=== PATIENT | male | born 1940 | race Caucasian/White ===

== ENCOUNTER 2022-07-31 12:22 | Outpatient (CLI) | payer MEDICARE, SELFPAY ==
--- NOTE | 2022-07-31 12:46 | ECG_ITS ---
Measurements Intervals [place] Rate: 67 P: 167 DC: 284 QRS: 74 QRSD: 100 T: 11 QT: 414 QTc: 439 Interpretive Statements SINUS RHYTHM WITH FIRST DEGREE AV BLOCK FREQUENT ATRIAL PREMATURE COMPLEXES BORDERLINE R WAVE PROGRESSION, ANTERIOR LEADS NONSPECIFIC ST & T-WAVE ABNORMALITY- INFERIOR LEADS BASELINE ARTIFACT- I, II, III, AVR, AVL, AVF ABNORMAL ECG NO PREVIOUS ECG AVAILABLE FOR COMPARISON Electronically Signed On 07-31-2022 13:35:53 CDT by Jaguar Colindres D.O.
[2022-07-31 13:42] LABS: Basophils Absolute Auto 0.1 K/mm3 (0.0-0.1); Basophils Percent Auto 0.9 % (0.2-1.2); Eosinophils Absolute Auto 0.1 K/mm3 (0-0.3); Eosinophils Percent Auto 1.8 % (0-4.4); Hemoglobin 13.1 g/dL (14.0-18.0); Immature Granulocyte Absolute 0.02 K/mm3 (0.00-0.031); Immature Granulocyte Percent A 0.3 % (0-0.5); Lymphocytes Absolute Auto 1.13 K/mm3 (0.9-3.2); Lymphocytes Percent Auto 14.5 % (18.3-44.2); Mean Corpuscular HGB Conc 31.2 g/dl (32-36); Mean Corpuscular Hemoglobin 29.2 pg (26-34); Mean Corpuscular Volume 93.8 fl (80-100); Mean Platelet Volume 10.2 fl (7.4-10.4); Monocytes Absolute Auto 0.6 K/mm3 (0.1-0.6); Monocytes Percent Auto 7.3 % (2.6-8.5); Neutrophils Absolute Auto 5.9 K/mm3 (1.3-6.7); Neutrophils Percent Auto 75.2 % (45.5-73.1); Platelet Count Result 149 k/mm3 (150-375); Red Blood Count 4.48 M/mm3 (4.6-6.20); White Blood Count 7.8 K/mm3 (4.5-10.0)
[2022-07-31 13:52] LABS: INR 1.1; Partial Thromboplastin Time 25.7 SECONDS (22.3-36.8); Prothrombin Time 14.8 Seconds (11.1-14.7)
[2022-07-31 13:53] LABS: Anion Gap -1 mmol/L (8-16); Blood Urea Nitrogen 30 mg/dL (9-20); Calcium 8.8 mg/dL (8.4-10.2); Carbon Dioxide 36 mmol/L (22-30); Chloride 101 mmol/L (98-107); Estimated Glomerular Filt Rate > 60; Glucose 100 mg/dL (65-110); Potassium 4.8 mmol/L (3.4-5.0); Sodium 136 mmol/L (137-145)
== END 2022-07-31 12:23 | disposition home or self-care (01) ==
LOC: ANHSURGERY 12:29
PROVIDERS: Visit Provider Urology
DX: C67.9 Malignant neoplasm of bladder, unspecified (principal); I48.91 Unspecified atrial fibrillation; Z01.818 Encounter for other preprocedural examination; I45.10 Unspecified right bundle-branch block
CPT/HCPCS: 36415; 80048; 85025; 85610; 85730; 87086; 87147; 87181; 87186; 93005

== ENCOUNTER 2022-08-05 19:29 | Observation (INO) | payer MEDICARE, SELFPAY ==
--- NOTE | 2022-07-20 14:39 | PC.NURSE ---
Report to the Outpatient Waiting Room, entrance under the green pavilion located off [facility], at time 0700 on date ___08/04/22____. Planned Procedure Time: ___0900 . Time changes happen often and if your time is changed the preop area will call you the afternoon before. - You and your visitor will be asked to self-screen and do not enter if you have any COVID symptoms. - A mask is optional within the hospital at this time. Patients may have clear liquids (water, carbonated beverages, clear teas, apple juice) until 3 hours prior to surgery with a maximum of 20 ounces. - No food from midnight until time of surgery - Infants may have breast milk until 4 hours before surgery, infant formula 6 hours prior to surgery. - Children will be allowed to drink immediately following surgery. If applicable, please bring a bottle or sippy cup to assist with drinking. Juice, water, soda, and popsicles are readily available. For infants on formula, please bring formula the day of surgery. Pacifiers are allowed. Take the following medications with a SIP of water the morning of surgery: NONE DO NOT STOP ANY OF YOUR OTHER PRESCRIPTION MEDICATIONS PRIOR TO SURGERY ?EXCEPT THE FOLLOWING Medications to discontinue per physician [place] TO CALL DR GARRISON OFFICE___ALL VITAMINS 3 DAYS PRE OP .LAST DOSE 07/31/22___ Please no make-up, nail arabic, hairspray, perfume, deodorant, or body powder the day of surgery. No jewelry (including any body piercings) or valuables the day of surgery, leave them at home. Please take a shower or bath the night before, or the morning of, surgery with an antibacterial soap. Wear comfortable, loose fitting clothing. Children are encouraged to wear pajamas. - Jewelry must be removed prior to entering the operating room. Rings and piercings that are not removed may be cut off. - The hospital will not accept responsibility for valuables. - Please leave all valuables, including medications, at home the day of surgery. If you are going home after surgery, a licensed transit mixer driver must drive you home. - NO public transportation without another adult if you receive anesthesia. - We recommend that an adult stay with you for 24 hours following discharge. - We also recommend that you do not drive, make important decision, drink alcoholic beverages, or take any drugs that were not prescribed by your health care provider for at least 24 hours after your discharge time. For Pediatric surgeries, we recommend two adults accompany the child home. Follow any additional instructions given to you from your surgeon. If you or anyone in your household have experienced Covid symptoms in the past week, please notify your surgeon or the nurse liaison at the phone number below for possible testing. Telephone instructions given to ___PT'S CONOR and asked if any additional questions and then verbalized understanding. Patient advised to call surgeon office or pre surgery nurse liaison [phone] if any additional questions.
[2022-07-20 14:54] VITALS: BMI 20.9
[2022-08-04] VITALS (14 sets, daily range): BP systolic 108–155; BP diastolic 33–49; PULSE 60–88; RESP 10–22; TEMP 36.1–36.7; O2SAT 95–100
[2022-08-04] MEDS: LACTATED RINGERS 1,000 ML 30 ML IV CONT (07:00)
--- NOTE | 2022-08-04 07:03 | WPDHPUPDATE1 ---
History and Physical Update Update Date/Time: 08/04/22 07:03 History and Physical has been reviewed, including an updated exam of the patient. There are NO changes in the patient's condition. Risks, benefits, and alternatives have been discussed and questions answered. Patient agrees to proceed with procedure. Proceed with Transurethral resection of prostate
--- NOTE | 2022-08-04 07:47 | WPDANESEPPF ---
Anes - Initial Pre Proc Eval Procedure: Operation Date: 08/04/22 08:30 Proposed Procedures p Trans Urethral Resection Prostate - Gulshan Goznalez MD Date/Time: 08/04/22 07:47 Surgeon: Gulshan Gonzalez MD Pre Op Diagnosis: urinary retention, bph, bladder cancer Patient Data Age: 82 Gender: M Height: 1.8 m Weight: 63.7 kg Last Vital Signs Temp 36.1 C L 08/04/22 07:27 Pulse 68 08/04/22 07:27 Resp 18 08/04/22 07:27 BP 140/36 L 08/04/22 07:27 Pulse Ox 99 08/04/22 07:27 O2 Del Method Room Air 08/04/22 07:27 Allergies Allergy/AdvReac Type Severity Reaction Status Date / Time No Known Allergies Allergy Verified 08/04/22 07:25 Home Medications Medication Instructions Recorded Confirmed Type apixaban 5 mg tablet (Eliquis) 5 mg PO BID 07/20/22 07/20/22 History ascorbic acid (vitamin C) 1,000 mg 1 g PO DAILY 07/20/22 07/20/22 History tablet cholecalciferol (vitamin D3) 50 50 mcg PO DAILY 07/20/22 07/20/22 History mcg (2,000 unit) capsule furosemide 40 mg tablet 40 mg PO DAILY 07/20/22 07/20/22 History magnesium 200 mg tablet 200 mg PO DAILY 07/20/22 07/20/22 History metolazone 2.5 mg tablet 2.5 mg PO DAILY 07/20/22 07/20/22 History metoprolol succinate 25 mg 25 mg PO HS 07/20/22 07/20/22 History tablet,extended release 24 hr potassium chloride 20 mEq 20 meq PO DAILY 07/20/22 07/20/22 History tablet,extended release silodosin 8 mg capsule 8 mg PO HS 07/20/22 07/20/22 History Patient hx anesthesia problems: none Family hx anesthesia problems: none Results Review: All pre-operative results and documents have been reviewed as part of the pre-operative evaluation. [facility] Surgical History Surgical History (Updated 08/04/22 @ 07:53 by Guanaco Myers MD) H/O aortic valve replacement H/O cardiac radiofrequency ablation Social History Social History Smoking packs per day: 2 Smoking cigarettes per day: 40.0 Years smoked: 20 Smoking pack-years: 40.00 Smoking status: Former smoker Tobacco type: cigarettes Smoking end date: 03/15/78 Living arrangements: with family Spiritual care concerns: No Anes - Eval Final PreProcedure Day of Procedure 08/04/22 07:47 Patient weight: normal Heart: irregular rhythm Lungs: clear to auscultation Airway: Mallampati scale class II Neurological: alert and oriented Last oral intake: >/= 8 hours ASA classification: III Emergent: no Anesthetic plan: proceed Anesthesia type and monitoring: general LMA and standard monitoring Results Review: All pre-operative results and documents have been reviewed as part of the pre-operative evaluation. Informed Consent: The patient's anesthetic plan and its attendant risks and benefits were discussed with the patient/family/POA. Questions were solicited and answers provided to the satisfaction of the patient/family/POA.
[2022-08-04] MEDS: ceFAZolin 2 GM/D5W 50 ML 2 GM/50 ML BAG IVPB (08:10)
[2022-08-04] MEDS: LIDOCAINE HCL 2% GEL UROJET 10 ML PKG MUCOUS MEM (09:26)
--- NOTE | 2022-08-04 09:33 | W.PM.PROC2 ---
Procedure Note - Detailed Date of Procedure 08/04/22 Pre-op Diagnosis urinary retention, bph, bladder cancer Post-op Diagnosis Same Procedure Performed Transurethral resection of prostate Surgeon Gulshan Gonzalez MD Anesthesia General Description of Procedure Patient is taken to the operative suite correctly identified. Once anesthesia was obtained he was placed in dorsal lithotomy position and prepped and draped usual sterile fashion. Twenty-four Singaporean resectoscope sheath was inserted in the bladder. He has some lateral lobe hypertrophy and a slightly elevated median bar area. His bladder is heavily trabeculated with cellule formation. There were no tumors noted. We then resected from the bladder neck to the verumontanum starting at the 5 and 7 o'clock position. We then did the lateral lobes. The floor and median area was then done last sleep. Hemostasis was achieved using electrocautery and a ball electrode. Specimens were retrieved and sent for pathologic review. 2% viscous lidocaine was inserted into the urethra a [address]. Patient was taken recovery stable condition. This completes dictation. Please send a copy to my office Estimated Blood Loss 50 Drains Yes Packing No Pathology Yes Complications No immediate complications Condition Stable Disposition PACU
[2022-08-04] MEDS: DOCUSATE SODIUM 100 MG CAPSULE PO (18:23)
[2022-08-04] MEDS: ceFAZolin 1 GM/NS 50 ML 1 GM/50 ML BAG IVPB ×2 (18:23→23:01)
[2022-08-04] MEDS: METOPROLOL SUCCINATE EXT REL 25 MG TABCR PO (21:15)
[2022-08-05] VITALS (7 sets, daily range): BP systolic 114–130; BP diastolic 40–48; PULSE 40–65; RESP 16–20; TEMP 36.4–36.8; O2SAT 95–99
[2022-08-05 05:53] LABS: Hematocrit 38.6 % (42.0-52.0); Hemoglobin 12.2 g/dL (14.0-18.0)
[2022-08-05 06:18] LABS: Anion Gap 0 mmol/L (8-16); Blood Urea Nitrogen 26 mg/dL (9-20); Calcium 8.2 mg/dL (8.4-10.2); Carbon Dioxide 33 mmol/L (22-30); Chloride 99 mmol/L (98-107); Estimated CRCL calculation 62 ml/min; Estimated Glomerular Filt Rate > 60; Glucose 98 mg/dL (65-110); Potassium 3.9 mmol/L (3.4-5.0); Sodium 132 mmol/L (137-145)
[2022-08-05] MEDS: CEPHALEXIN 500 MG CAPSULE PO ×4 (08:43→19:58)
[2022-08-05] MEDS: FUROSEMIDE 40 MG TABLET PO (08:44)
[2022-08-05] MEDS: DOCUSATE SODIUM 100 MG CAPSULE PO (08:44)
[2022-08-05] MEDS: metOLazone 2.5 MG TABLET PO (08:44)
[2022-08-05] MEDS: POTASSIUM CHLORIDE 20 MEQ TABLET.ER PO (08:44)
--- NOTE | 2022-08-05 13:34 | WPDUROPN2 ---
Progress Note: A&P Assessment and Plan (1) BPH (benign prostatic hyperplasia): Code(s): N40.0 - Benign prostatic hyperplasia without lower urinary tract symptoms Status: Acute Assessment and Plan: Urine got bloody with activity off CBI this afternoon, therefore we will keep him overnight back on CBI and wean to off in the morning. If urine remains clear off CBI tomorrow we will plan to discharge with sosa and remove sosa next week. Subjective Subjective Date/Time Seen: 08/05/22 13:34 Transurethral resection of prostate. Patient doing well, tolerating diet and activity. CBI has urine running clear this morning. Post Op day: 1 Review of Systems Respiratory: Respiratory: Reports no additional respiratory complaints Gastrointestinal: Gastrointestinal: Denies abdominal pain, Denies nausea and Denies vomiting Genitourinary: Genitourinary: Reports hematuria, Denies dysuria, Denies flank pain, Denies testicular pain, Denies urinary frequency, Denies urinary hesitancy, Denies urinary incontinence and Denies urinary urgency Exam Const: General: cooperative and comfortable Resp: Effort & Inspection: normal respiratory effort Cardio: Rate: regular rate GI: GI Palp: Yes Soft to palpation and Yes Tenderness to palpation present (GI) : General: Yes no CVA tenderness Urinary Catheter: Urinary Catheter: patent and draining, urine clear and urine red Objective Data Vital Signs Vital Signs: Vital Signs - 24 hr 08/04/22 13:45 08/04/22 16:31 08/04/22 21:15 Temperature 98.1 F 97.2 F L Pulse Rate 88 74 64 Respiratory Rate 16 16 Blood Pressure 114/38 L 124/49 L Pulse Oximetry 98 97 Oxygen Delivery 08/04/22 20:00 08/04/22 20:31 08/05/22 00:31 Temperature 98.0 F 97.5 F L Pulse Rate 74 62 59 L Respiratory Rate 16 18 20 Blood Pressure 108/40 L 130/40 L Pulse Oximetry 97 95 99 Oxygen Delivery Room Air 08/05/22 04:31 08/05/22 07:57 08/05/22 10:22 Temperature 97.9 F 98.1 F Pulse Rate 61 65 Respiratory Rate 18 16 Blood Pressure 115/41 L 120/40 L Pulse Oximetry 95 95 Oxygen Delivery Room Air Intake/Output Intake/Output: Intake & Output 08/02/22 08/03/22 08/04/22/24/23 23:59 23:59 23:59 23:59 Intake Total 2100 0 Output Total 5243 7228 Balance -1978 -9626 Meds/Results Medications: Active Medications Generic Name Dose Route Start Last Admin Trade Name Freq PRN Reason Stop Dose Admin Hydrocodone Bitart/Acetaminophen 1 tab 08/04/22 10:46 Hydrocodone/Acetaminophen (*Crx) 5-325 Mg Tablet PO Q4H PRN Pain Rated 1-6 Cephalexin HCl 500 mg 08/05/22 09:00 08/05/22 12:43 Cephalexin 500 Mg Capsule PO 500 mg QID PER Administration Docusate Sodium 100 mg 08/04/22 17:00 08/05/22 08:44 Docusate Sodium 100 Mg Capsule PO 100 mg BID PER Administration Furosemide 40 mg 08/05/22 09:00 08/05/22 08:44 Furosemide 40 Mg Tablet PO 40 mg DAILY PER Administration Hyoscyamine 0.125 mg 08/04/22 10:46 Hyoscyamine Sulfate 0.125 Mg Tablet SUBLINGUAL Q6H PRN Bladder Spasm Metolazone 2.5 mg 08/05/22 09:00 08/05/22 08:44 Metolazone 2.5 Mg Tablet PO 2.5 mg DAILY PER Administration Metoprolol Succinate 25 mg 08/04/22 21:00 08/04/22 21:15 Metoprolol Succinate Ext Rel 25 Mg Tabcr PO 25 mg HS PER Administration Morphine Sulfate 2 mg 08/04/22 10:46 Morphine Sulfate (*Crx) 2 Mg/Ml Inj IV PUSH Q2H PRN Pain Rated 7-10 Naloxone HCl 0.1 mg 08/04/22 10:46 Naloxone Hcl 0.4 Mg/Ml Vial IV PUSH Q2M PRN Opiate Reversal Ondansetron HCl 4 mg 08/04/22 10:46 Ondansetron Inj 4 Mg/2 Ml Vial IV PUSH Q12H PRN Nausea And Vomiting Potassium Chloride 20 meq 08/05/22 09:00 08/05/22 08:44 Potassium Chloride 20 Meq Tablet.Er PO 20 meq DAILY PER Administration Labs Labs: Laboratory Results - last 24 hr 08/05/22 05:06 Hgb 12.2 L Hct 38.6 L
--- NOTE | 2022-08-05 15:59 | WPDANESPN ---
Anes - Prog Note Post-Op Date/Time: 08/05/22 15:59 Cardiovascular status: normal Respiratory status: normal Airway patency: baseline Mental status: baseline Post-Op hydration status: normal Vital Signs: Last Vital Signs Temp 36.7 C 08/05/22 10:22 Pulse 65 08/05/22 10:22 Resp 16 08/05/22 10:22 BP 120/40 L 08/05/22 10:22 Pulse Ox 95 08/05/22 10:22 O2 Del Method Room Air 08/05/22 07:57 O2 Flow Rate 8 08/04/22 09:50 Pain Score (VAS): 05/22 I/O: Intake & Output 08/04/22 08/05/22 08/05/22 23:59 07:59 15:59 Intake Total 840 0 Output Total 1950 5750 Balance -1110 -5750 0 Laboratory Tests 08/05/22 05:06 08/05/22 05:06 08/05/22 05:06 Hgb 12.2 L Hct 38.6 L Sodium 132 L Potassium 3.9 Chloride 99 Carbon Dioxide 33 H Anion Gap 0 L BUN 26 H Creatinine 0.70 Estim Creat Clear Calc 62 Estimated GFR > 60 Glucose 98 Calcium 8.2 L Post-procedural complaints: none Patient Feedback: Patient satisfied with anesthetic care.
[2022-08-06 03:00] VITALS: BP 118/49; PULSE 61; RESP 20; TEMP 36.6; O2SAT 98
[2022-08-06 07:12] VITALS: BP 119/34; PULSE 60; RESP 20; TEMP 36.7; O2SAT 98
[2022-08-06] MEDS: CEPHALEXIN 500 MG CAPSULE PO (08:52)
[2022-08-06] MEDS: POTASSIUM CHLORIDE 20 MEQ TABLET.ER PO (08:53)
[2022-08-06] MEDS: metOLazone 2.5 MG TABLET PO (08:53)
[2022-08-06] MEDS: FUROSEMIDE 40 MG TABLET PO (08:53)
[2022-08-06 09:05] VITALS: BP 124/37; PULSE 61; RESP 18; TEMP 36.8; O2SAT 97
--- NOTE | 2022-08-06 11:28 | WPDUROPN2 ---
Progress Note: A&P Assessment and Plan (1) BPH (benign prostatic hyperplasia): Code(s): N40.0 - Benign prostatic hyperplasia without lower urinary tract symptoms Status: Acute Assessment and Plan: ok to discharge home with leg bag Subjective Subjective Date/Time Seen: 08/06/22 11:28 POD #2 TURP The patient is improved today, urine is pink off CBI with activity. He tolerates diet and activity well. He notes minimal to no pain. Catheter is draining to gravity. Post Op day: 2 Review of Systems Cardiovascular: Cardiovascular: Reports no additional cardiovascular complaints Respiratory: Respiratory: Reports no additional respiratory complaints Gastrointestinal: Gastrointestinal: Denies abdominal pain, Denies nausea and Denies vomiting Genitourinary: Genitourinary: Denies hematuria, Denies dysuria, Denies flank pain, Denies urinary frequency, Denies urinary hesitancy and Denies urinary urgency Exam Const: General: comfortable Resp: Effort & Inspection: normal respiratory effort Cardio: Rate: regular rate GI: GI Palp: No abdominal tenderness, Yes Soft to palpation and No Tenderness to palpation present (GI) : General: Yes no CVA tenderness Urinary Catheter: Urinary Catheter: patent and draining and urine pink Extrem: Right lower extremity: no edema Left lower extremity: no edema Objective Data Vital Signs Vital Signs: Vital Signs - 24 hr 08/05/22 16:29 08/05/22 20:00 08/05/22 20:00 Temperature 98.3 F Pulse Rate 63 45 L Respiratory Rate 18 Blood Pressure 121/42 L Pulse Oximetry 99 Oxygen Delivery Room Air 08/05/22 22:23 08/05/22 22:50 08/06/22 03:00 Temperature 97.5 F L 97.5 F L 97.9 F Pulse Rate 40 L 40 L 61 Respiratory Rate 20 20 20 Blood Pressure 114/48 L 114/48 L 118/49 L Pulse Oximetry 98 98 98 Oxygen Delivery 08/06/22 07:12 08/06/22 09:05 08/06/22 08:00 Temperature 98.1 F 98.3 F Pulse Rate 60 61 Respiratory Rate 20 18 Blood Pressure 119/34 L 124/37 L Pulse Oximetry 98 97 Oxygen Delivery Room Air Intake/Output Intake/Output: Intake & Output 08/03/22 08/04/22 08/05/22 08/06/22 23:59 23:59 23:59 23:59 Intake Total 2100 550 0 Output Total 7800 7550 3750 [facility] -5700 -7000 -3750 Meds/Results Medications: Active Medications Generic Name Dose Route Start Last Admin Trade Name Freq PRN Reason Stop Dose Admin Hydrocodone Bitart/Acetaminophen 1 tab 08/04/22 10:46 Hydrocodone/Acetaminophen (*Crx) 5-325 Mg Tablet PO Q4H PRN Pain Rated 1-6 Cephalexin HCl 500 mg 08/05/22 09:00 08/06/22 08:52 Cephalexin 500 Mg Capsule PO 500 mg QID PER Administration Docusate Sodium 100 mg 08/04/22 17:00 08/06/22 08:54 Docusate Sodium 100 Mg Capsule PO Not Given BID PER Furosemide 40 mg 08/05/22 09:00 08/06/22 08:53 Furosemide 40 Mg Tablet PO 40 mg DAILY PER Administration Hyoscyamine 0.125 mg 08/04/22 10:46 Hyoscyamine Sulfate 0.125 Mg Tablet SUBLINGUAL Q6H PRN Bladder Spasm Metolazone 2.5 mg 08/05/22 09:00 08/06/22 08:53 Metolazone 2.5 Mg Tablet PO 2.5 mg DAILY PER Administration Metoprolol Succinate 25 mg 08/04/22 21:00 08/05/22 20:00 Metoprolol Succinate Ext Rel 25 Mg Tabcr PO Not Given HS PER Morphine Sulfate 2 mg 08/04/22 10:46 Morphine Sulfate (*Crx) 2 Mg/Ml Inj IV PUSH Q2H PRN Pain Rated 7-10 Naloxone HCl 0.1 mg 08/04/22 10:46 Naloxone Hcl 0.4 Mg/Ml Vial IV PUSH Q2M PRN Opiate Reversal Ondansetron HCl 4 mg 08/04/22 10:46 Ondansetron Inj 4 Mg/2 Ml Vial IV PUSH Q12H PRN Nausea And Vomiting Potassium Chloride 20 meq 08/05/22 09:00 08/06/22 08:53 Potassium Chloride 20 Meq Tablet.Er PO 20 meq DAILY PER Administration
--- NOTE | 2022-08-06 11:36 | PM.DS ---
DS: Admitting Diagnosis Discharge Date 08/06/22 Admitting Diagnosis BPH DS: Discharge Diagnosis Discharge Diagnosis (1) BPH (benign prostatic hyperplasia): Code(s): N40.0 - Benign prostatic hyperplasia without lower urinary tract symptoms Status: Acute DS: Summary Hospital Course Hospital Course: The patient underwent a TURP on 08/04/[address] Gonzalez. He tolerated the procedure well, went to recovery in stable condition then to the floor for further observation. He did well post operative day 1, however after CBI was turned off mid day, he walked the halls and sat up in the chair in his room and his urine went from light pink to dark red, therefore CBI was then restarted and he was kept overnight on CBI. It was weaned to off early this morning and stopped. His urine then remained light pink off CBI with activity. He is tolerating diet and activity well without pain. He will be discharged home on previous home medications except Eliquis which will be held until next week when his catheter is removed. He will keep his sosa in until his f/u appointment next week. He will also go home with Tramadol and stool softeners. Activity will be limited to walking and no straining or lifting >20lbs. He will resume a diet as tolerated. Time spent discussing smoking cessation with patient: more than 10 minutes Status at Discharge Functional status at discharge: independent ambulation Overall status at discharge: patient is progressing back to baseline Time Spent with Patient Time attestation: Total time spent providing and/or coordinating discharge services: Time spent: Less than 30 minutes Exam Const: General: healthy appearing and comfortable Resp: Effort & Inspection: normal respiratory effort Cardio: Rate: regular rate GI: GI Palp: Yes Soft to palpation and No Tenderness to palpation present (GI) : General: Yes no CVA tenderness Urinary Catheter: Urinary Catheter: patent and draining and urine pink Extrem: Right lower extremity: no edema Left lower extremity: no edema DS: Data Data Completed and Pending Completed studies during hospitalization: Pending at discharge 08/04/22 09:20 Surgical [PTH] Routine Discharge Plan Discharge Attending physician on discharge: Gulshan Gonzalez Discharging Clinician: Jemma Sheth Patient Disposition: Home, Self-Care Activity: may shower Diet: as tolerated Discharge Instructions: Follow up on Wednesday08/11/22 at 10:45 with Jemma Sheth [employer] for your catheter removal. Call the office or go to the ER if you experience blood in the urine, fever, abdominal pain, catheter drainage issues, or symptoms of a urinary tract infection. Avoid heavy lifting >20lbs, ok to walk and engage in light activity. Patient Instructions: Sosa Catheter Placement and Care (GEN) Stand Alone Forms: Avoid NSAIDs, Fiber Supplement Follow-up/Referrals: Gulshan Gonzalez MD [Physician] - Discharge Medications: New docusate sodium 100 mg Capsule 100 mg PO BID Qty: 14 0RF Continued silodosin 8 mg capsule 8 mg PO HS furosemide 40 mg tablet 40 mg PO DAILY metoprolol succinate 25 mg tablet extended release 24 hr 25 mg PO HS potassium chloride 20 mEq tablet extended release 20 meq PO DAILY metolazone 2.5 mg tablet 2.5 mg PO DAILY ascorbic acid (vitamin C) 1,000 mg Tablet 1 g PO DAILY cholecalciferol (vitamin D3) 50 mcg (2,000 unit) Capsule 50 mcg PO DAILY magnesium 200 mg Tablet 200 mg PO DAILY Held Eliquis 5 mg tablet 5 mg PO BID Hold Instructions: Resume on 08/11/22. Date of admission: 08/05/22 19:29 Primary Care Provider: Halina Solorzano Admitting Provider: Gulshan Gonzalez Attending physician on admission: Gulshan Gonzalez Condition: Improved
== END 2022-08-06 11:10 | disposition home or self-care (01) ==
LOC: ANHSURGERY 19:32 → ANH2MED 08-06 09:20
PROVIDERS: Admitting Provider Urology; Visit Provider Nurse Practitioner Adult Health
PROC: 0VT08ZZ Resection of Prostate, Via Natural or Artificial Opening Endoscopic (ICD-10-PCS; CPT 52601; principal; 2022-08-04 08:30)
DX: C67.9 Malignant neoplasm of bladder, unspecified (principal); N40.1 Benign prostatic hyperplasia with lower urinary tract symptoms; R33.8 Other retention of urine; Z95.2 Presence of prosthetic heart valve; Z87.891 Personal history of nicotine dependence; Z79.01 Long term (current) use of anticoagulants; Z79.899 Other long term (current) drug therapy
CPT/HCPCS: 52601; 36415; 80048; 85014; 85018; 85025; 85610; 85730; 87086; 87147; 87181; 87186; 88305; 93005; A9270; G0378; J0690; J2405; J2704; J3010; J7120

== ENCOUNTER 2023-05-05 13:47 | Outpatient (CLI) | payer MEDICARE, SELFPAY ==
--- NOTE | ~2023-05-05 | PE_ITS ---
EXAMINATION: PET_PETPSMAST_PT DATE: 05/05/2023 15:48 INDICATION: Prostate cancer TECHNIQUE: 7.947 mCi of pipflufolastat F-18 (18-F-DCFPyL) was administered i.v. Low dose computed to mography (CT) images were acquired from the base of the brain to the base of the brain to the proxima l thighs for attenuation correction and anatomic localization. Positron emission tomography (PET) conchita ges were acquired in the same distribution beginning 77 minutes after injection. Images including fus ed PET/CT images were reconstructed in axial, coronal, and sagittal planes. Automated exposure contro l technique was employed. The dose-length product was 484.81mGy-cm. COMPARISON: None FINDINGS: There is prominent increased PSMA uptake throughout much of the prostate with maximal SUV of 40.3 con sistent with reported primary prostate cancer. There is direct extension of increased uptake consiste nt with local invasion into the bilateral seminal vesicles which are more prominent on the left with maximal SUV of 19.4. Widespread abnormal PSMA uptake predominantly in the chest, abdomen and pelvis c onsistent with metastatic disease. This includes a few sclerotic and PSMA avid bone lesions throughout the axial and appendicular skelet on. For reference a 1.2 cm densely sclerotic lesion at the T12 vertebral body demonstrates increased PSMA activity with maximal SUV of 90.4. There are also widespread PSMA avid lymph nodes, many of which remain of normal size including at the bilateral axilla, mediastinum and bilateral pippa and in the retroperitoneum beginning the upper abdo men and extending into the pelvis with a forming nearly confluent ring of PSMA avid soft tissue densi ty at the periphery of the pelvis extending between the iliac, obturator and perirectal chains. For r eference one of the more discrete mediastinal lymph nodes measuring 9 x 6 mm situated between the inn ominate and left common carotid arteries demonstrates increased uptake with maximal SUV of 50.9. There are multiple peripheral and fissural likely pleural-based foci of increased PSMA uptake at both lungs which also likely lymphatic. For reference a small focus without evident radiologic correlate seen at the medial left lower lobe along the posterior margin of the descending aorta with maximal RUBIN V of 11.5. Increased PSMA uptake which appears more widespread and ill-defined but of lower intensity in the right lung with lower lung predominance. Much of this is without discrete nodular correlates although there is some groundglass opacity and septal line thickening at the right lung base which rubin ggests lymphangitic spread. This includes a region which on PET imaging measures approximately 4 x 3 cm on the lateral basilar right lower lobe which without evident discrete soft tissue density correla te on the CT imaging but which demonstrates moderate uptake with maximal SUV of 17.6. Additional typical or incidental findings include: Typical pattern of symmetric physiologic increased activity in the lacrimal, parotid and submandibula r glands as well as along the mucosa of the nasal and oral cavities, the jean-, naso- and hypopharynx, the glottis and esophagus. Cardiomegaly with prominent left ventricular and biatrial enlargement. At herosclerotic coronary artery calcific lesion. No pericardial or pleural effusion. There is stenting of ascending thoracic aortic aneurysm which measures up to 4.5 cm. Physiologic renal accumulation and excretion of activity in the kidneys, bladder and along portions of ureters. 6 mm nonobstructing stone at a lower pole calyx of the right kidney. There are bilateral low-attenuation photopenic renal cysts measuring up to 3.7 cm on the left. There is moderate right hy dronephrosis and severe left hydroureteronephrosis without evident obstructing stones. This could be related to bladder outlet obstruction although the bladder is not abnormally distended.
== END 2023-05-05 13:48 | disposition home or self-care (01) ==
DX: C61 Malignant neoplasm of prostate (principal)
CPT/HCPCS: 78815; A9595

== ENCOUNTER 2023-07-28 14:11 | Outpatient (CLI) | payer MEDICARE, SELFPAY ==
--- NOTE | ~2023-07-28 | CT_ITS ---
EXAMINATION: CT lumbar spine wo con DATE: 07/28/2023 15:17 INDICATION: Compression fracture. Lower back pain. TECHNIQUE: Computed tomography (CT) of the lumbar spine was performed without intravenous contrast. A utomated exposure control and iterative reconstruction technique were employed. The dose-length produ ct was 287.48 mGy-cm. COMPARISON: PET/CT 05/05/2023 FINDINGS: There are bilateral internal ureteral stents. There are bilateral nephrostomy tubes. There is a 4 mm stone in right kidney. There is a 2 mm stone in left kidney. There is 10 degrees levoscolio sis of thoracolumbar spine. There are sclerotic lesions in T12 and L1 vertebral bodies and the sacrum , consistent with metastatic disease. There is a burst fracture of L1 with 4/5 loss of height and ret ropulsion of bone 2 mm into central spinal canal. There is a burst fracture of L3 with 2/5 loss of he ight and retropulsion of bone 3 mm into central spinal canal. There is severely decreased disc height at L5-S1. A 14 mm subcutaneous mass posterior to the sacrum is likely a sebaceous cyst. The followin g disc levels are specifically discussed: L1-L2: The disc is bulging. There is severe bilateral facet joint osteoarthritis. There is mild bilat eral neural foraminal stenosis. There is mild central canal stenosis. L2-L3: The disc is bulging. There is severe bilateral facet joint osteoarthritis. There is mild bilat eral neural foraminal stenosis. There is mild central canal stenosis. L3-L4: The disc is bulging. There is severe bilateral facet joint osteoarthritis. There is mild bilat eral neural foraminal stenosis. There is mild central canal stenosis. L4-L5: The disc is bulging. There is severe bilateral facet joint osteoarthritis. There is moderate b ilateral neural foraminal stenosis. There is severe central canal stenosis. L5-S1: The disc is bulging. There is severe bilateral facet joint osteoarthritis. There is mild right and moderate left neural foraminal stenosis. There is mild central canal stenosis. IMPRESSION: 1. L1 burst fracture, worsened from 05/05/2023. L3 burst fracture, new from 05/05/2023. 2. Severe lumbar spondylosis. 3. Scattered sclerotic bone lesions, consistent with metastatic disease. 4. Thoracolumbar levoscoliosis. Reviewed, dictated and finalized at location E. IMPRESSION: 1. L1 burst fracture, worsened from 05/05/2023. L3 burst fracture, new from 05/05. 2. Severe lumbar spondylosis. 3. Scattered sclerotic bone lesions, consistent with metastatic disease. 4. Thoracolumbar levoscoliosis.
== END 2023-07-28 14:12 | disposition home or self-care (01) ==
PROVIDERS: Visit Provider Orthopaedic Surgery
DX: S32.010A Wedge compression fracture of first lumbar vertebra, initial encounter for closed fracture (principal); X58.XXXA Exposure to other specified factors, initial encounter; M47.896 Other spondylosis, lumbar region
CPT/HCPCS: 72131

== ENCOUNTER → 2024-05-23 16:37 | Outpatient (REF) | payer MEDICARE, SELFPAY ==
--- OUTSIDE RECORDS SUMMARY | 2024-05-23 18:10 | XMS_ITS | Encounter Summary ---
Author Organization [facility] Address [address] [address] Care Team Providers Care Scraper Tender Name Role Phone Madi Wills OD Unavailable [phone] Halina Solorzano MD Primary Care Provider [phone] Akanksha Gibson DO Primary Care Provider [phone] Reason for Visit * Reason Onset Date Comments Appointment 09/16/2022 Encounter Details Date Type Department Care Team (Late st Contact Info) Description 09/16/2022 Telephone [facility] - Neurosurgery [address] [place] [phone] Ghada Stone, RN Appointment Social History Tobacco Use Types Packs/Day Years Used Date Smoking Tobacco: Former Cigarettes Smokeless Tobacco: Never Alcohol Use Standard Drinks/Week Comments No 0 (1 standard drink = 0.6 oz pur e alcohol) Sex and Gender Information Value Date Recorded Sex Assigned at Not on file Gender Identity Not on file Sexual Orientation Not on file COVID-19 Exposure Response Date Recorded In the last 10 days, have yo u been in contact with someone who was confirmed or suspected to have Coronavirus/COVID-19? No / Unsure 09/01/2022 10:48 AM CDT documented as of this encounter Plan of Treatment Not on file documented as of this encounter Visit Diagnoses Not on filedocumented in this encounter Care Teams Scraper Tender Relationship Specialty Start Date End Date Halina Solorzano MD [address] [place] [phone] PCP - General 02/17/22 01/05/24 [place] [address] [place] [address] PCP - General Internal Medicine 01/06/24 Madi Wills OD [address] [place] [address] Neuro Ophthalmology 07/27/17 documented as of this encounter
--- OUTSIDE RECORDS SUMMARY | 2024-05-23 18:10 | XMS_ITS | Patient Health Summary ---
Author Organization [facility] Address [address] [place] [address] Care Team Providers Care Freight Agent Name Role Phone ElmaMadi OD Unavailable [phone] Akanksha Gibson DO Primary Care Provider [phone] Note from [facility],non-owned Affiliates and Associated Physician Practices is amultiple site organization consisting of ambulatory clinics and hospital sitesin [place], [place], [place] and [place]. This disclosure is being madepursuant to the Care Everywhere program and may not contain all information available regarding this patient. Last updated 17.[facility] Allergies * Lac Bovis(Anaphylaxis,Other) -High Criticality * Rosuvastatin(Myalgias) -Medium Criticality * Simvastatin(Myalgias) -Medium Criticality Medications * Be aware that medications may not be up to date on this document. Alwaysverify current medications with the patient. * aspirin (ASPIRIN) 81 MG chew tablet Take 1 (one) tablet by mouth Twice Daily, Three Times a Week * coenzyme Q10 100 MG capsule Take 100 (one hundred) mg by mouth once daily * apixaban (Eliquis) 5 MG tablet(Started 12/02/2021) Eliquis 5 mg tablet * vitamin D3 (Cholecalciferol) 125 MCG (5000 UT) capsule Take 1 (one) capsule by mouth * diclofenac sodium (Voltaren) 1 % gel(Started 10/09/2021) Apply 2 (two) g to affected area 4 times daily as needed * furosemide (Lasix) 40 MG tablet(Started 02/09/2022) furosemide 40 mg tablet * metoprolol succinate XL 24hr (Toprol XL) 25 MG tablet(Started 01/14/2022) metoprolol succinate ER 25 mg tablet,extended release 24 hr TAKE 1 TABLET BY MOUTH DAILY * Misc Natural Products (Turmeric Curcumin) Take 1 capsule by mouth once daily * potassium chloride ER (K-TAB) 20 MEQ tablet(Started 02/09/2022) TAKE 1 TABLET BY MOUTH DAILY WITH FUROSEMIDE * silodosin (Rapaflo) 8 MG capsule(Started 07/18/2021) Take 1 (one) capsule by mouth once daily Active Problems Problem Noted Date Diagnosed Date Pain due to internal orthope dic prosthetic devices, implants and grafts, initial encounter 02/27/2016 Olecranon bursitis of left elbow 07/17/2015 Syncope and collapse 05/23/2015 Other postprocedural complic ations and disorders of genitourinary system 05/23/2015 Other retention of urine 05/23/2015 Closed fracture of sacrum 05/23/2015 Disorder of brain 05/23/2015 Contusion of one lung 05/23/2015 Calculus of kidney 05/23/2015 Other disorders of lung 05/23/2015 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, 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 Closed fracture of left acetabulum 05/23/2015 Pneumothorax 05/23/2015 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 Pulmonary emphysema 05/23/2015 Acquired cyst of kidney 05/23/2015 Laceration of left kidney 05/23/2015 Other nonspecific abnormal finding of lung field 05/23/2015 Pleural effusion, not elsewhere classified 05/22 Multiple closed fractures of ribs 05/23/2015 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 05/23/2015 Atherosclerosis 05/22/2015 Other specified fracture of unspecified pubis, initial encounter for closed fracture 05/22/2015 Injury 05/18/2015 Immunizations * TDAP (7yrs+)(Given 05/18/2015) Social History Tobacco Use Types Packs/Day Years Used Date Smoking Tobacco: Former Cigarettes Smokeless Tobacco: Never Tobacco Cessation:Counseling Given: No Alcohol Use Standard Drinks/Week Comments No 0 (1 standard drink = 0.6 oz pur e alcohol) Sex and Gender Information Value Date Recorded Sex Assigned at Not on file Gender Identity Not on file Sexual Orientation Not on file Last Filed Vital Signs Vital Sign Reading Time Taken Comments Blood Pressure 138/51 09/22/2022 4:10 PM CDT Pulse 60 09/22/2022 4:10 PM CDT Temperature 36.6 C (97.9 F) 09/22/2022 4:10 PM CDT Respiratory Rate 18 09/22/2022 4:10 PM CDT Oxygen Saturation 96% 09/22/2022 4:10 PM CDT Inhaled Oxygen Concentration - - Weight 67 kg (147 lb 12.8 oz) 09/22/2022 4:10 PM CDT Height 177.8 cm (5' 10 ) 09/22/2022 4:10 PM CDT Body Mass Index 21.21 09/22/2022 4:10 PM CDT Procedures * MRI BRAIN WWO CONTRAST(Performed 09/15/2022) Performed for Meningioma (HCC) * CREATININE - POCT INTERFACED(Performed 09/15/2022) * CARDIAC EKG ORDER(Performed 01/26/2022) * CULTURE BLOOD(Performed 01/24/2022) * SARS-COV-2 (COVID-19)+INFLU A+B PCR RAPID(Performed 01/24/2022) * CULTURE BLOOD(Performed 01/24/2022) * URINALYSIS REFLEX TO MICROSCOPIC NO CULTURE(Performed 01/24/2022) * XR CHEST 2VW(Performed 01/24/2022) Performed for SOB (shortness of breath) * EKG 12-LEAD(Performed 01/24/2022) Performed for SOB (shortness of breath) * PHOSPHORUS BLOOD(Performed 01/24/2022) * MAGNESIUM BLOOD(Performed 01/24/2022) * ALBUMIN BLOOD(Performed 01/24/2022) * B-TYPE NATRIURETIC PEPTIDE(Performed 01/24/2022) * TROPONIN I(Performed 01/24/2022) * PT-INR [facility](Performed 01/24/2022) * COMPREHENSIVE METABOLIC PANEL(Performed 01/24/2022) * CBC W AUTO DIFFERENTIAL(Performed 01/24/2022) * IMAGING/RADIOLOGY/XRAY RESULTS ORDER(Performed 12/29/2021) * IMAGING/RADIOLOGY/XRAY RESULTS ORDER(Performed 11/19/2020) * EYE EXAM(Performed 06/06/2020) * EYE EXAM(Performed 06/24/2018) * FL TESSIE SURGERY(Performed 02/27/2016) * XR PELVIS JUDET VIEWS(Performed 11/27/2015) * XR PELVIS JUDET VIEWS(Performed 08/28/2015) * XR ELBOW LEFT 3VW OR MORE(Performed 07/17/2015) * XR PELVIS JUDET VIEWS(Performed 07/17/2015) * XR PELVIS JUDET VIEWS(Performed 06/12/2015) * PHOSPHORUS BLOOD(Performed 05/22/2015) * MAGNESIUM BLOOD(Performed 05/22/2015) * BASIC METABOLIC PANEL (CALCIUM TOTAL)(Performed 05/22/2015) * CBC W/O DIFFERENTIAL(Performed 05/22/2015) * XR PELVIS 3VW OR MORE(Performed 05/21/2015) * XR CHEST 1VW PORTABLE(Performed 05/21/2015) * MAGNESIUM BLOOD(Performed 05/21/2015) * PHOSPHORUS BLOOD(Performed 05/21/2015) * BASIC METABOLIC PANEL (CALCIUM TOTAL)(Performed 05/21/2015) * CBC W/O DIFFERENTIAL(Performed 05/21/2015) * XR ABDOMEN KUB PORTABLE(Performed 05/20/2015) * PHOSPHORUS BLOOD(Performed 05/20/2015) * MAGNESIUM BLOOD(Performed 05/20/2015) * BASIC METABOLIC PANEL (CALCIUM TOTAL)(Performed 05/20/2015) * CBC W/O DIFFERENTIAL(Performed 05/20/2015) * ECHO 2D ONLY WO COLOR OR DOPPLER(Performed 05/20/2015) * URINALYSIS W/MICROSCOPIC NO CULTURE(Performed 05/19/2015) * BASIC METABOLIC PANEL (CALCIUM TOTAL)(Performed 05/19/2015) * CBC W/O DIFFERENTIAL(Performed 05/19/2015) * CT CHEST ABDOMEN PELVIS W CONT(Performed 05/19/2015) * CT CERVICAL SPINE WO CONTRAST(Performed 05/19/2015) * CT THORACIC SPINE WO CONTRAST(Performed 05/19/2015) * CT LUMBAR SPINE WO CONTRAST(Performed 05/19/2015) * CT ANGIO BRAIN(Performed 05/19/2015) * CBC W/O DIFFERENTIAL(Performed 05/19/2015) * XR PELVIS JUDET VIEWS(Performed 05/19/2015) * XR PELVIS 1 OR 2VW(Performed 05/19/2015) * PHOSPHORUS BLOOD(Performed 05/19/2015) * MAGNESIUM BLOOD(Performed 05/19/2015) * BASIC METABOLIC PANEL (CALCIUM TOTAL)(Performed 05/19/2015) * CBC W/O DIFFERENTIAL(Performed 05/19/2015) * XR KNEE LEFT 2VW OR LESS(Performed 05/19/2015) * CT HEAD WO CONTRAST(Performed 05/18/2015) * XR KNEE LEFT 2VW OR LESS(Performed 05/18/2015) * DRUG ABUSE PANEL 10-20+ETHANOL URINE NO CONFIRM(Performed 05/18/2015) * BLOOD GASES ARTERIAL(Performed 05/18/2015) * XR CHEST 1VW PORTABLE(Performed 05/18/2015) * XR PELVIS 1 OR 2VW(Performed 05/18/2015) * ALCOHOL ETHYL BLOOD(Performed 05/18/2015) * PTT [facility](Performed 05/18/2015) * PT-INR [facility](Performed 05/18/2015) * PHOSPHORUS BLOOD(Performed 05/18/2015) * MAGNESIUM BLOOD(Performed 05/18/2015) * LIPASE BLOOD(Performed 05/18/2015) * HEPATIC FUNCTION PANEL(Performed 05/18/2015) * AMYLASE BLOOD(Performed 05/18/2015) * BASIC METABOLIC PANEL (CALCIUM TOTAL)(Performed 05/18/2015) * LACTIC ACID BLOOD(Performed 05/18/2015) * CBC W AUTO DIFFERENTIAL(Performed 05/18/2015) * CBC W AUTO DIFFERENTIAL(Performed 05/18/2015) * TYPE + SCREEN PANEL(Performed 05/18/2015) * CROSSMATCH RBC LEUKOREDUCED(Performed 05/18/2015) * EKG 12-LEAD(Performed 05/18/2015) Results * MRI BRAIN WWO CONTRAST (09/15/2022 4:29 PM CDT) Anatomical Region Laterality Modality Head Magnetic Resonan ce 09/17/2022 1:16 PM CDT Impressions 09/17/2022 1:48 PM CDT IMPRESSION: Since prior MRI from 07/12/2017: 1.Redemonstration of extra-axial enhancing mass along the right parasellar region compatible with right paraclinoid meningioma, mildly increased in size compared to the prior. 2.Partial encasement of the right internal carotid artery appears similar to the prior. 3.No new acute intracranial findings. > Interpreting Provider: Domingo Hopper MD on 09/17/2022 1:48 PM Narrative 09/17/2022 1:48 PM CDT PROCEDURE: MRI BRAIN WWO CONTRAST, DATE/TIME OF EXAM: 09/15/2022 4:29 PM, LOCATION [facility] INDICATION: D32.9: Meningioma (CMS/HCC) ADDITIONAL CLINICAL INFORMATION: Ordering Provider Reason For Exam: Meningioma. Technologist Note: Stealth protocol MRI brain 1 year prior to appointment Additional: None. EXAMINATION: Magnetic resonance imaging (MRI) of the brain without and with contrast CONTRAST: GADOBUTROL 1 MMOL/ML IV SSM SO:7 mL TECHNIQUE: MRI of the brain was performed prior to and following the uneventful administration of 7 mL intravenous GADAVIST contrast according to standard protocol. COMPARISON: Outside facility MRI of the brain from 07/12/2017 FINDINGS: Redemonstration right paraclinoid extra-axial enhancing mass, centered at the right parasellar region, measuring approximately 2.6 x 1.5 x 2.5 cm in the maximal transaxial and craniocaudal dimensions, (series 16, image 13, series 17 image 21) previously measured approximate approximately 2.2 x 1.6 x 1.9 cm, (series 901, image 12, and series 1001, image 13 on the prior MRI from 07/12/2017), mildly enlarged in size compared to prior. The mass partially encases the right internal carotid artery without significant stenosis. There is mild mass effect on the adjacent inferior aspect right frontal lobe with no significant FLAIR hyperintensity to suggest vasogenic edema. No other significant change since prior. Small foci of susceptibility artifacts are seen along the right temporoparietal lobes and the left frontal lobe compatible with small microhemorrhages or mineralization. Otherwise, no evidence of acute or chronic hemorrhage is identified. No evidence of acute cerebral infarction is seen. There is moderate cerebral volume loss with associated ex vacuo ventricular dilatation. No significant mass effect or midline shift is otherwise seen. Periventricular and subcortical white matter FLAIR hyperintensities likely represent sequelae of chronic small vessel ischemic disease. No additional enhancing lesions are otherwise identified. The corpus callosum and sella appear normal. The posterior fossa, brainstem, and craniocervical junction appear normal. The visualized portions of the orbits appear grossly unremarkable. There are mucous retention cysts in the left maxillary sinus. Minimal mucosal thickening in the remaining paranasal sinuses The imaged mastoid air cells appear grossly clear. Normal flow voids are demonstrated in the carotid arteries and basilar artery. The calvarium and visualized cervical spine appear normal. Procedure Note Domingo Hopper MD - 09/17/2022 PROCEDURE: MRI BRAIN WWO CONTRAST, DATE/TIME OF EXAM: 09/15/2022 4:29PM, LOCATION [facility] INDICATION: D32.9: Meningioma (CMS/HCC) ADDITIONAL CLINICAL INFORMATION: Ordering Provider Reason For Exam: Meningioma. Technologist Note: Stealth protocol MRI brain 1 year prior toappointment Additional: None. EXAMINATION: Magnetic resonance imaging (MRI) of the brain without andwith contrast CONTRAST: GADOBUTROL 1 MMOL/ML IV SSM SO:7 mL TECHNIQUE: MRI of the brain was performed prior to and following the uneventful administration of 7 mL intravenous GADAVIST contrastaccording to standard protocol. COMPARISON: Outside facility MRI of the brain from 07/12/2017 FINDINGS: Redemonstration right paraclinoid extra-axial enhancing mass, centeredat the right parasellar region, measuring approximately 2.6 x 1.5 x 2.5 cmin the maximal transaxial and craniocaudal dimensions, (series 16, image13, series 17 image 21) previously measured approximate approximately 2.2 x1.6 x 1.9 cm, (series 901, image 12, and series 1001, image 13 on the priorMRI from 07/12/2017), mildly enlarged in size compared to prior. The mass partially encases the right internal carotid artery without significant stenosis. There is mild mass effect on the adjacent inferior aspectright frontal lobe with no significant FLAIR hyperintensity to suggestvasogenic edema. No other significant change since prior. Small foci of susceptibility artifacts are seen along the right temporoparietal lobes and the left frontal lobe compatible with small microhemorrhages or mineralization. Otherwise, no evidence of acute or chronic hemorrhage is identified. No evidence of acute cerebralinfarction is seen. There is moderate cerebral volume loss with associated ex vacuo ventricular dilatation. No significant mass effect or midline shift is otherwise seen. Periventricular and subcortical white matter FLAIR hyperintensities likely represent sequelae of chronic small vesselischemic disease. No additional enhancing lesions are otherwise identified. The corpus callosum and sella appear normal. The posterior fossa, brainstem, and craniocervical junction appear normal. The visualized portions of the orbits appear grossly unremarkable. There are mucous retention cysts in the left maxillary sinus. Minimal mucosal thickening in the remaining paranasal sinuses The imaged mastoid aircells appear grossly clear. Normal flow voids are demonstrated in the carotid arteries and basilar artery. The calvarium and visualized cervical spine appear normal. IMPRESSION: Since prior MRI from 07/12/2017: 1.Redemonstration of extra-axial enhancing mass along the rightparasellar region compatible with right paraclinoid meningioma, mildly increased in size compared to the prior. 2.Partial encasement of the right internal carotid artery appearssimilar to the prior. 3.No new acute intracranial findings. > Interpreting Provider: Domingo Hopper MD on 09/17/2022 1:48 PM Kee Rodriguez MD MR ORDERABLES * CREATININE - POCT INTERFACED (09/15/2022 3:40 PM CDT) Creatinine POCT 0.42 0.30 - 1.30 mg/dL 09/15/2022 3:42 PM CDT [facility] Comment:Range ok for MRI eGFR >90 >90 mL/min/1.7 3 m2 09/15/2022 3:42 PM CDT [facility] Blood BLOOD SPECIMEN / Unknown 09/15/2022 3:40 PM CDT 09/15/2022 3:42 PM CDT Kee Rodriguez MD LAB - POINT OF CARE ORDERABLES Performing Organization Address City/State/[facility] Co de Phone Number [facility] [address] [address], [facility] [phone] * CARDIAC EKG ORDER (01/26/2022 3:04 PM PHYSICIAN PRACTICE MARKET MANAGER) Narrative 01/26/2022 3:04 PM PHYSICIAN PRACTICE MARKET MANAGER Ordered by an unspecified provider. Scanned Document CARDIAC SERVICES ORD ERABLES * CULTURE BLOOD (01/24/2022 11:50 PM PHYSICIAN PRACTICE MARKET MANAGER) Only the most recent of2 resultswithin the time period is included. Culture No growth day 5 KRYS 01/30/2022 4:30 AM PHYSICIAN PRACTICE MARKET MANAGER [facility] Blood PERIPHERAL BLOOD / Unknown Venipuncture / Unknown 01/24/2022 11:50 PM PHYSICIAN PRACTICE MARKET MANAGER 01/24/2022 11:56 PM PHYSICIAN PRACTICE MARKET MANAGER Julien Hogue MD LAB - MICROBIOLOGY O RDERABLES [facility] [address] [place], [place] [address], [facility] [phone] * SARS-COV-2 (COVID-19)+INFLU A+B PCR RAPID (01/24/2022 11:49 PM PHYSICIAN PRACTICE MARKET MANAGER) COVID-19 PCR Not detected Not detected 01/26/20 1:17 AM PHYSICIAN PRACTICE MARKET MANAGER [facility] Influenza A Rapid SARAHY Not Detected Not Detected 01/25/2022 1:17 AM PHYSICIAN PRACTICE MARKET MANAGER [facility] Influenza B SARAHY Rapid Not Detected Not Detected 01/25/2022 1:17 AM PHYSICIAN PRACTICE MARKET MANAGER [facility] Microbiology SPECIMEN FROM NASOPHARYNGEAL STRUCTURE / Unknown Collection / Unknown 01/24/2022 11:49 PM PHYSICIAN PRACTICE MARKET MANAGER 01/25/2022 1:15 AM PHYSICIAN PRACTICE MARKET MANAGER Narrative [facility] - 01/25/2022 1:17 AM PHYSICIAN PRACTICE MARKET MANAGER Influenza assay performed by Nucle[employer] Acid [employer]. Results do not exclude the possibility of a mixed viral infection. NOTE: Detecting and identifying specific viral nucleic acids from individuals exhibiting signs and symptoms of respiratory infection aids in the diagnosis of respiratory infection, if used in conjunction with other clinical and laboratory findings. The results of this test should not be used as the sole basis for diagnosis, treatment, or patient management decisions. This nucleic acid amplification assay performance was validated by [facility]. This test has been authorized by the Food and Drug administration (FDA)under an Emergency Use Authorization (EUA). This test has been validated in accordance with the FDA's guidance document Policy for Diagnostic Testing in Laboratories Certified to perform High Complexity Testing under CLIA prior to Emergency Use Authorization for Coronavirus Disease-2019 during the Public Health Emergency issued on May 13, 2019. FDA independent review of this validation is pending. This test is only authorized for the duration of time the declaration that circumstances exist justifying the authorization of emergency use of in vitro diagnostic tests for detection of SARS-CoV-2 virus and/or diagnosis of COVID-19 infection under section 564(b)(1) of the Act, 21 U.S.C 360bbb-3 (b)(1), unless the authorization is terminated or revoked sooner. Fact Sheets for this EUA assay are available upon request. Julien Hogue MD LAB - MICROBIOLOGY O RDERABLES [facility] [address] [place] [id number], [facility] [phone] * (ABNORMAL) URINALYSIS REFLEX TO MICROSCOPIC NO CULTURE (01/24/2022 1:51 PM PHYSICIAN PRACTICE MARKET MANAGER) Color UA Leeann(A) Straw, Yellow 01/24/2022 2:24 PM PHYSICIAN PRACTICE MARKET MANAGER [facility] Clarity UA Clear Clear 01/24/2022 2:24 PM PHYSICIAN PRACTICE MARKET MANAGER [facility] Specific Phillips UA 1.015 1.005 - 1.030 01/24/2022 2:24 PM [facility] pH UA 7.0 5.0 - 8.0 pH 01/24/2022 2:24 PM [facility] Protein UA Negative Negative 01/24/2022 2:24 PM PHYSICIAN PRACTICE MARKET MANAGER [facility] Glucose UA Negative Negative 01/24/2022 2:24 PM PHYSICIAN PRACTICE MARKET MANAGER [facility] Ketone UA Negative Negative 01/24/2022 2:24 PM [facility] Bilirubin UA Negative Negative 01/24/2022 2:24 PM PHYSICIAN PRACTICE MARKET MANAGER [facility] Blood UA Negative Negative 01/24/2022 2:24 PM [facility] Nitrite UA Positive(A) Negative 01/24/2022 2:24 PM [facility] Leukocyte Esterase Negative Negative 01/24/2022 2:24 PM [facility] Urobilinogen UA 4.0(A) Negative mg/dL 01/24/2022 2:24 PM [facility] RBC UA 3-5 None Seen, 0-2, 3-5 /HPF 01/24/2022 2:24 PM [facility] WBC UA 0-5 None Seen, 0-5 /HPF 01/24/2022 2:24 PM [facility] Squamous Epithelial Cells UA None Seen None Seen, 0-2, 3-5 /HPF 01/24/2022 2:24 PM PHYSICIAN PRACTICE MARKET MANAGER [facility] Urine URINE SPECIMEN OBTAINED BY CLEAN CATCH PROCEDURE / Unknown Collection / Unknown 01/24/2022 1:51 PM PHYSICIAN PRACTICE MARKET MANAGER 01/24/2022 2:24 PM PHYSICIAN PRACTICE MARKET MANAGER Narrative [facility] - 01/24/2022 2:24 PM PHYSICIAN PRACTICE MARKET MANAGER Estella Estevez PA-C LAB - URINALYSIS OR DERABLES [facility] [address] [place] [address], [facility] [phone] * XR CHEST PA AND LATERAL (01/24/2022 1:08 PM PHYSICIAN PRACTICE MARKET MANAGER) Anatomical Region Laterality Modality Chest Radiographic Shiloh ging 01/24/2022 1:09 PM PHYSICIAN PRACTICE MARKET MANAGER Impressions 01/24/2022 4:45 PM PHYSICIAN PRACTICE MARKET MANAGER IMPRESSION: Bibasilar left greater than right opacities could be secondary to atelectasis and/or airspace disease. Suggestion of pulmonary vascular congestion in the upper lung gonsales. Report dictated by Sreedhar Candelaria MD, MD (residential sales manager). I, Joseph Torres MD have personally reviewed and interpreted this examination/study. > Interpreting Provider: Joseph Torres MD on 01/24/2022 4:45 PM Narrative 01/24/2022 4:45 PM PHYSICIAN PRACTICE MARKET MANAGER PROCEDURE: XR CHEST 2VW, DATE/TIME OF EXAM: 01/24/2022 1:08 PM, LOCATION [facility] INDICATION: R06.02: SOB (shortness of breath) ADDITIONAL CLINICAL INFORMATION: Ordering Provider Reason For Exam: SOB COMPARISON: Chest x-ray 05/21/2015 FINDINGS: The median sternotomy wires are midline. 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 Cardiac silhouette is obscured. There is left lower lobe opacity could be secondary to retrocardiac atelectasis and/or airspace disease versus a small subpulmonic left pleural effusion. Right basilar airspace opacities could be of similar etiology.. There is blunting of the right costophrenic angle, likely small pleural effusion. Scattered areas of atelectasis in the bilateral lungs. Mild pulmonary vascular congestion in the upper lobes. No pneumothorax. Atherosclerosis of the aorta. The visible bony thorax is intact. Procedure Note Joseph Torres MD - 01/24/2022 PROCEDURE: XR CHEST 2VW, DATE/TIME OF EXAM: 01/24/2022 1:08 PM, LOCATION [facility] INDICATION: R06.02: SOB (shortness of breath) ADDITIONAL CLINICAL INFORMATION: Ordering Provider Reason For Exam: SOB COMPARISON: Chest x-ray 05/21/2015 FINDINGS: The median sternotomy wires are midline. 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 Cardiac silhouette is obscured. There is left lower lobe opacity couldbe secondary to retrocardiac atelectasis and/or airspace disease versus a small subpulmonic left pleural effusion. Right basilar airspaceopacities could be of similar etiology.. There is blunting of the rightcostophrenic angle, likely small pleural effusion. Scattered areas of atelectasis inthe bilateral lungs. Mild pulmonary vascular congestion in the upper lobes.No pneumothorax. Atherosclerosis of the aorta. The visible bony thorax is intact. IMPRESSION: Bibasilar left greater than right opacities could be secondary to atelectasis and/or airspace disease. Suggestion of pulmonary vascular congestion in the upper lung gonsales. Report dictated by Sreedhar Candelaria MD, MD (residential sales manager). I, Joseph Torres MD have personally reviewed and interpreted this examination/study. > Interpreting Provider: Joseph Torres MD on 24:45 PM [facility] ORDERABLES * EKG 12-LEAD (01/24/2022 1:01 PM PHYSICIAN PRACTICE MARKET MANAGER) Only the most recent of2 resultswithin the time period is included. Ventricular Rate 111 BPM [facility] MUSE Atrial Rate 111 BPM [facility] MUSE P-R Interval 194 ms SL MUSE QRS Duration ms 100 ms [facility] MUSE Q-T Interval ms 320 ms SL MUSE QTC Calculation (Bezet) 435 ms SL MUSE Calculated R [place] 96 degrees SL MUSE Calculated T [place] -72 degrees [facility] MUSE Interpretation EKG ATRIAL FLUTTER WITH 3:[address] AX[address] & T WAVE ABNORMALITY, CONSIDER INFERIOR ISCHEMIA ABNORMAL ECG WHEN COMPARED WITH ECG OF 18-MAY-2015 20:59, ANTERIOR INFARCT IS NOW PRESENT ST NOW DEPRESSED IN INFERIOR LEADS T WAVE INVERSION NOW EVIDENT IN INFERIOR LEADS T WAVE INVERSION LESS EVIDENT IN LATERAL LEADS Confirmed by ASH ANDRADE MD ([id number]) on 01/26/2022 11:15:32 AM [facility] MUSE 01/24/2022 1:01 PM PHYSICIAN PRACTICE MARKET MANAGER 01/26/2022 11:15 AM PHYSICIAN PRACTICE MARKET MANAGER Estella Estevez PA-C ECG ORDERABLES Performing Organization Address [facility] Co de Phone Number [facility] * (ABNORMAL) PT-INR [facility] (01/24/2022 12:58 PM PHYSICIAN PRACTICE MARKET MANAGER) Only the most recent of2 resultswithin the time period is included. Pathologist [facility] PT 16.2(H) 12.1 - 14.8 Seconds 01/24/2022 1:28 PM PHYSICIAN PRACTICE MARKET MANAGER [facility] INR 1.3 See Comment 01/24/2022 1:28 PM PHYSICIAN PRACTICE MARKET MANAGER [facility] Comment:The suggested therap eutic range for standard coumadin (warfarin) therapy is an INR of 2.0-3.0. For high-risk patients (Mechanical Mitral Valve Prosthesis, etc.), the suggested prophylactic therapeutic range is an INR of 2.5-3.5. Blood BLOOD SPECIMEN / Unknown Venipuncture / Unknown 01/24/2022 12:58 PM PHYSICIAN PRACTICE MARKET MANAGER 01/24/2022 1:21 PM PHYSICIAN PRACTICE MARKET MANAGER Estella Estevez PA-C LAB - COAGULATION O RDERABLES Performing Organization Address City/[facility]/ZIP Co de Phone Number [facility] [address] [place] [address], [place] [phone] * TROPONIN I (01/24/2022 12:58 PM PHYSICIAN PRACTICE MARKET MANAGER) Pathologist [facility] Troponin I 0.015 <0.032 ng/mL 01/24/2022 1:52 PM [facility] Blood BLOOD SPECIMEN / Unknown Venipuncture / Unknown 01/24/2022 12:58 PM PHYSICIAN PRACTICE MARKET MANAGER 01/24/2022 1:16 PM PHYSICIAN PRACTICE MARKET MANAGER Estella Estevez PA-C LAB - CHEMISTRY ORD ERABLES [facility] [address] [place] [address], [facility] [phone] * (ABNORMAL) CBC W AUTO DIFFERENTIAL (01/24/2022 12:58 PM PHYSICIAN PRACTICE MARKET MANAGER) Only the most recent of3 resultswithin the time period is included. WBC 6.9 3.5 - 10.5 10 3/uL 01/24/2022 1:20 PM [facility] RBC 4.65 4.30 - 5.70 10 6/uL 01/24/2022 1:20 PM [facility] Hemoglobin 14.0 12.0 - 17.6 g/dL 01/24/2022 1:20 PM [facility] Hematocrit 42.8 35.2 - 51.7 % 01/24/2022 1:20 PM [facility] MCV 92.0 80.7 - 98.3 fL 01/24/2022 1:20 PM [facility] MCH 30.1 26.7 - 34.0 pg 01/24/2022 1:20 PM [facility] MCHC 32.7 30.8 - 35.9 g/dL 01/24/2022 1:20 PM [facility] RDW-SD 48.0 36.0 - 50.0 fL 01/24/2022 1:20 PM [facility] RDW-CV 14.3 11.2 - 14.8 % 01/24/2022 1:20 PM [facility] Platelet Count 256 150 - 400 10 3/uL 01/24/2022 1:20 PM [facility] MPV 10.1 9.4 - 12.9 fL 01/24/2022 1:20 PM [facility] nRBC Absolute 0.00 0 10 3/uL 01/24/2022 1:20 PM [facility] nRBC Auto 0.0 0 /100 WBC 01/24/2022 1:20 PM [facility] Neutrophils % 73.2(H) 35.0 - 70.0 % 01/24/2022 1:20 PM [facility] Lymphocytes % 11.9(L) 20.0 - 43.0 % 01/24/2022 1:20 PM [facility] Monocytes % 13.5(H) 5.0 - 13.0 % 01/24/2022 1:20 PM [facility] Eosinophils % 0.4 0.0 - 6.0 % 01/24/2022 1:20 PM [facility] Basophil % 0.7 0.0 - 2.0 % 01/24/2022 1:20 PM [facility] Neutrophils Absolute 5.05 1.60 - 7.00 10 3/uL 01/24/2022 1:20 PM [facility] Lymphocyte Absolute 0.82(L) 1.10 - 3.90 10 3/uL 01/24/2022 1:20 PM [facility] Monocytes Absolute 0.93 0.26 - 1.07 10 3/uL 01/24/2022 1:20 PM [facility] Eosinophils Absolute 0.03 0.00 - 0.47 10 3/uL 01/24/2022 1:20 PM [facility] Basophils Absolute 0.05 0.00 - 0.08 10 3/uL 01/24/2022 1:20 PM [facility] Immature Granulocytes % 0.3 0.0 - 1.0 % 01/24/2022 1:20 PM [facility] Immature Granulocytes Absolute 0.02 01/24/2022 1:20 PM [facility] Blood BLOOD SPECIMEN / Unknown Venipuncture / Unknown 01/24/2022 12:58 PM PHYSICIAN PRACTICE MARKET MANAGER 01/24/2022 1:16 PM [facility] Estella Estevez PA-C LAB - HEMATOLOGY OR DERABLES Performing Organization Address City/[facility]/ZIP Co de Phone Number [facility] [address] [place] [id number], [facility] [phone] * (ABNORMAL) B-TYPE NATRIURETIC PEPTIDE (01/24/2022 12:58 PM PHYSICIAN PRACTICE MARKET MANAGER) Pathologist [facility] BNP 726(H) <100 pg/mL 01/24/2022 1:52 PM PHYSICIAN PRACTICE MARKET MANAGER [facility] Comment: A decision threshold of 100 pg/mL has been demonstrated to provide the maximal combination of sensitivity, specificity and predictive value for the diagnosis of congestive heart failure (CHF). Virtually all patients with no evidence of CHF have BNP values less than 100 pg/mL. A BNP value greater than 100 pg/mL is consistent with the diagnosis of CHF in the appropriate clinical setting. In a study of 693 patients (male and female) with diagnosed CHF, the following values were determined based on the NYHA functional classification system: NYHA Functional Class Mean Valule (pg/mL) % >100 pg/mL I 320 58.1 II 432 73.0 III 656 79.0 IV 1635 98.3 Blood BLOOD SPECIMEN / Unknown Venipuncture / Unknown 01/24/2022 12:58 PM PHYSICIAN PRACTICE MARKET MANAGER 01/24/2022 1:16 PM [facility] Estella Estevez PA-C LAB - CHEMISTRY ORD ERABLES [facility] [address] [place] [phone], [facility] [phone] * (ABNORMAL) COMPREHENSIVE METABOLIC PANEL (01/24/2022 12:58 PM PHYSICIAN PRACTICE MARKET MANAGER) [facility] BUN 17 7 - 26 mg/dL 01/24/2022 1:58 PM [facility] Creatinine 0.68(L) 0.71 - 1.16 mg/dL 01/24/2022 1:58 PM [facility] Sodium 134(L) 136 - 145 mmol/L 01/24/2022 1:58 PM [facility] Potassium 5.8(H) 3.5 - 4.5 mmol/L 01/24/2022 1:58 PM [facility] Comment:Hemolysis detected i n this specimen. Hemolysis may cause false elevations in potassium leading to pseudohyperkalemia or masked hypokalemia. Recommend repeat testing if clinically indicated. Chloride 100 98 - 107 mmol/L 01/24/2022 1:58 PM [facility] CO2 27 22 - 29 mmol/L 01/24/2022 1:58 PM [facility] Glucose 106 70 - 115 mg/dL 01/24/2022 1:58 PM [facility] Calcium 9.4 8.4 - 10.2 mg/dL 01/24/2022 1:58 PM [facility] Protein Total 6.6 6.0 - 8.3 g/dL 01/24/2022 1:58 PM [facility] Comment:Hemolysis detected i n this specimen. Hemolysis is known to cause elevations in this analyte. Caution should be exercised in the interpretation of this result. Recommend repeat testing if clinically indicated. Albumin 3.3(L) 3.4 - 5.0 g/dL 01/24/2022 1:58 PM [facility] Bilirubin Total 0.6 0.2 - 1.2 mg/dL 01/24/2022 1:58 PM [facility] Alkaline Phosphatase 75 40 - 150 U/L 01/24/2022 1:58 PM [facility] ALT 27 5 - 55 U/L 01/24/2022 1:58 PM [facility] AST 40(H) 5 - 34 U/L 01/24/2022 1:58 PM [facility] Comment:Hemolysis detected i n this specimen. Hemolysis is known to cause elevations in this analyte. Caution should be exercised in the interpretation of this result. Recommend repeat testing if clinically indicated. Anion Gap 13 8 - 18 01/24/2022 1:58 PM [facility] BUN/Creatinine Ratio 25(H) 7 - 23 01/13 1:58 PM [facility] Osmolality Calculated 280 270 - 300 mOsm/kg 01/24/2022 1:58 PM [facility] Albumin/Globulin Ratio 1.0(L) 1.1 - 2.3 01/24/2022 1:58 PM [facility] eGFR by CKD-EPI >90 >=90 mL/min/1 .73 m2 01/24/2022 1:58 PM [facility] Blood BLOOD SPECIMEN / Unknown Venipuncture / Unknown 01/24/2022 12:58 PM PHYSICIAN PRACTICE MARKET MANAGER 01/24/2022 1:16 PM PHYSICIAN PRACTICE MARKET MANAGER Estella Estevez PA-C LAB - CHEMISTRY [facility] [place] [address] [address], [facility] [phone] * PHOSPHORUS BLOOD (01/24/2022 12:58 PM PHYSICIAN PRACTICE MARKET MANAGER) Only the most recent of6 resultswithin the time period is included. Phosphorus 3.1 2.8 - 5.1 mg/dL 01/24/2022 6:33 PM PHYSICIAN PRACTICE MARKET MANAGER [facility] Blood BLOOD SPECIMEN / Unknown Venipuncture / Unknown 01/24/2022 12:58 PM PHYSICIAN PRACTICE MARKET MANAGER 01/24/2022 1:16 PM PHYSICIAN PRACTICE MARKET MANAGER Julien Hogue MD LAB - CHEMISTRY MEGHAN BAKER Performing Organization Address [facility] Co de Phone Number [address] [address], [facility] [phone] * MAGNESIUM BLOOD (01/24/2022 12:58 PM PHYSICIAN PRACTICE MARKET MANAGER) Only the most recent of6 resultswithin the time period is included. Pathologist [facility] Magnesium 2.1 1.6 - 2.6 mg/dL 01/24/2022 6:37 PM PHYSICIAN PRACTICE MARKET MANAGER [facility] Comment:Hemolysis detected i n this specimen. Hemolysis is known to cause elevations in this analyte. Caution should be exercised in the interpretation of this result. Recommend repeat testing if clinically indicated. Blood BLOOD SPECIMEN / Unknown Venipuncture / Unknown 01/24/2022 12:58 PM PHYSICIAN PRACTICE MARKET MANAGER 01/24/2022 1:16 PM PHYSICIAN PRACTICE MARKET MANAGER Julien Hogue MD LAB - CHEMISTRY MEGHAN BAKER Performing Organization Address [facility]/ZIP Co de Phone Number [address] [address], [place] [phone] * (ABNORMAL) ALBUMIN BLOOD (01/24/2022 12:58 PM PHYSICIAN PRACTICE MARKET MANAGER) Albumin 3.2(L) 3.4 - 5.0 g/dL 01/24/2022 6:33 PM PHYSICIAN PRACTICE MARKET MANAGER [facility] Blood BLOOD SPECIMEN / Unknown Venipuncture / Unknown 01/24/2022 12:58 PM PHYSICIAN PRACTICE MARKET MANAGER 01/24/2022 1:16 PM PHYSICIAN PRACTICE MARKET MANAGER Julien Hogue MD LAB - CHEMISTRY MEGHAN BAKER [facility] Organization Address City/State/ZIP Co de Phone Number [facility] [address] [place] [address], [facility] [phone] * IMAGING RADIOLOGY XRAY RESULTS ORDER (12/29/2021) Only the most recent of2 resultswithin the time period is included. Anatomical Region Laterality Modality Other 12/29/2021 Narrative 12/29/2021 Ordered by an unspecified provider. Scanned Document IMAGING * EYE EXAM (06/06/2020) Anatomical Region Laterality Modality Other Narrative 06/06/2020 Ordered by an unspecified provider. Scanned Document SCANNING ONLY * EYE EXAM (06/24/2018 12:13 PM CDT) Anatomical Region Laterality Modality Other Narrative 06/24/2018 12:13 PM CDT Ordered by an unspecified provider. Scanned Document SCANNING ONLY * FL TESSIE SURGERY (02/27/2016 9:03 AM PHYSICIAN PRACTICE MARKET MANAGER) Anatomical Region Laterality Modality Other Narrative 02/27/2016 9:04 AM PHYSICIAN PRACTICE MARKET MANAGER Fluoroscopy was used for this exam. Please see the Operative report. Procedure Note Provider, MD Jesse - 06/12/2017 Fluoroscopy was used for this exam. Please see the Operative report. Aman Brownlee MD FLUOROSCOPY ORDERABL ES * XR PELVIS JUDET VIEWS (11/27/2015 10:52 AM CDT) Only the most recent of5 resultswithin the time period is included. Anatomical Region Laterality Modality Other Impressions 11/27/2015 12:24 PM CDT Impression: Unchanged internally fixed left acetabular fracture. Unchanged left pubic body and pubic rami fractures. Unchanged mild hip osteoarthritis. This report was electronically signed by WOODY GARVIN M.D. on 11/27/2015 12:24 PM . Narrative 11/27/2015 12:24 PM CDT Examination: Pelvis 3 views History: Left acetabular fracture Findings: 3 views of the pelvis including bilateral Judet views were performed with comparison made to 08/28/2015. There is an unchanged partially threaded screw traversing the left iliac bone extending to the left sacrum for internal fixation of a left acetabular fracture and left sacral fracture. Healing fractures of the left pubic rami and pubic body are again noted. There is mild bilateral hip osteoarthritis which is unchanged. Lumbar spine degenerative disc disease is noted. No new fracture is noted. Procedure Note Woody Garvin MD - 06/12/2017 Examination: Pelvis 3 views History: Left acetabular fracture Findings: 3 views of the pelvis including bilateral Judet views were performed withcomparison made to 08/28/2015. There is an unchanged partially threadedscrew traversing the left iliac bone extending to the left sacrum forinternal fixation of a left acetabular fracture and left sacral fracture. Healing fractures of the left pubicrami and pubic body are again noted. There is mild bilateral hiposteoarthritis which is unchanged. Lumbar spine degenerative disc diseaseis noted. No new fracture is noted. IMPRESSION Impression: Unchanged internally fixed left acetabular fracture. Unchanged left pubicbody and pubic rami fractures. Unchanged mild hip osteoarthritis. This report was electronically signed by WOODY GARVIN M.D. on11/27/2015 12:24 PM . Aman Brownlee MD DIAGNOSTIC IMAGING O RDERABLES * XR ELBOW LEFT 3VW OR MORE (07/17/2015 10:59 AM CDT) Anatomical Region Laterality Modality Upper Extremity Other Impressions 07/17/2015 11:11 AM CDT Impression: Left elbow olecranon bursitis. This report was electronically signed by WOODY GARVIN M.D. on 07/17/2015 11:11 AM . Narrative 07/17/2015 11:11 AM CDT Examination: Left elbow minimum 3 views History: Left elbow swelling Findings: 3 views of the left elbow were performed without comparison. Alignment of the left elbow is normal. There is no elbow joint effusion. There is left elbow olecranon bursitis. Small osseous fragments are present adjacent to the posterior olecranon which may represent soft tissue calcifications or small fracture fragments. Procedure Note Woody Garvin MD - 06/12/2017 Examination: Left elbow minimum 3 views History: Left elbow swelling Findings: 3 views of the left elbow were performed without comparison. Alignment ofthe left elbow is normal. There is no elbow joint effusion. There is leftelbow olecranon bursitis. Small osseous fragments are present adjacent tothe posterior olecranon which may represent soft tissue calcifications or small fracture fragments. IMPRESSION Impression: Left elbow olecranon bursitis. This report was electronically signed by WOODY GARVIN M.D. on 07/17/201511:11 AM . Aman Brownlee MD DIAGNOSTIC IMAGING O RDERABLES * (ABNORMAL) CBC W/O DIFFERENTIAL (05/22/2015 2:35 AM PHYSICIAN PRACTICE MARKET MANAGER) Only the most recent of6 resultswithin the time period is included. WBC 8.7 3.5 - 10.5 10 3/uL [facility] RBC 4.05(L) 4.30 - 5.70 10 6/uL [facility] Hemoglobin 12.3(L) 13.5 - 17.5 g/dL [facility] Hematocrit 36.4(L) 39.0 - 50.0 % [facility] MCV 89.9 81.0 - 97.0 fL [facility] MCH 30.4 28.0 - 34.0 pg [facility] MCHC 33.8 32.0 - 36.0 g/dL [facility] Platelet Count 180 150 - 400 10 3/uL [facility] RDW-SD 42.7 36.0 - 50.0 fL [facility] RDW-CV 13.0 11.2 - 14.8 % [facility] MPV 10.0 9.3 - 12.8 fL [facility] Blood specimen (specimen) BLOOD SPECIMEN / Unknown 05/22/2015 2:35 AM PHYSICIAN PRACTICE MARKET MANAGER 05/22/2015 2:48 AM PHYSICIAN PRACTICE MARKET MANAGER Julien Yang MD LAB - HEMATOLOGY ORD KIARA Performing Organization Address [facility] Co de Phone Number [address] [phone] * (ABNORMAL) BASIC METABOLIC PANEL (CALCIUM TOTAL) (05/22/2015 2:35 AM PHYSICIAN PRACTICE MARKET MANAGER) Only the most recent of6 resultswithin the time period is included. BUN 14 7 - 26 mg/dL [facility] Creatinine 0.8 0.6 - 1.2 mg/dL [facility] Sodium 139 136 - 145 mmol/L [facility] Potassium 3.8 3.5 - 4.5 mmol/L [facility] Chloride 107 98 - 107 mmol/L [facility] CO2 26 22 - 29 mmol/L [facility] Glucose 115 70 - 115 mg/dL [facility] Calcium 8.0(L) 8.4 - 10.2 mg/dL [facility] Anion Gap 10 8 - 18 [facility] BUN/Creatinine Ratio 18 7 - 23 [facility] Osmolality Calculated 275 270 - 300 mOsm/kg [facility] eGFR >60 >60 mL/min/1.7 3 m2 [facility] Blood specimen (specimen) BLOOD SPECIMEN / Unknown 05/22/2015 2:35 AM PHYSICIAN PRACTICE MARKET MANAGER 05/22/2015 2:48 AM PHYSICIAN PRACTICE MARKET MANAGER Julien Yang MD LAB - CHEMISTRY MEGHAN BAKER Performing Organization Address [facility]/ZIP Co de Phone Number [address] [phone] * XR PELVIS 3VW OR MORE (05/21/2015 2:55 PM PHYSICIAN PRACTICE MARKET MANAGER) Anatomical Region Laterality Modality Pelvis Other Impressions 05/21/2015 4:14 PM PHYSICIAN PRACTICE MARKET MANAGER Impression: An orthopedic screw traverses the left iliac wing and the left sacroiliac joint. Left anterior and posterior wall acetabular fracture extending to the left iliac wing is again demonstrated. Displaced left superior and inferior pubic rami fractures extending to the left pubic body are unchanged. The right sacral fracture is not well-seen on this examination. No new fractures are seen. The hip joint spaces are preserved. There is no diastasis at the sacroiliac joints or pubic symphysis. The bones are osteopenic. Multiple surgical clips are seen adjacent to the medial left femoral neck. Dictated by Migue Villatoro MD (residential sales manager) Dr. CONNIE Zeng M.D. have personally reviewed and interpreted this examination/study. This report was electronically signed by CONNIE DELVALLE M.D. on 05/21/2015 4:14 PM . Narrative 05/21/2015 4:14 PM PHYSICIAN PRACTICE MARKET MANAGER Exam: PX PELVIS 3 VW MIN Date: 05/21/2015 2:55 PM History: surgical procedure Comparison: 05/19/2015 Findings/ Procedure Note Connie Delvalle MD - 06/12/2017 Exam: PX PELVIS 3 VW MIN Date: 05/21/2015 2:55 PM History: surgical procedure Comparison: 05/19/2015 Findings/ IMPRESSION Impression: An orthopedic screw traverses the left iliac wing and the left sacroiliacjoint. Left anterior and posterior wall acetabular fracture extending tothe left iliac wing is again demonstrated. Displaced left superior andinferior pubic rami fractures extending to the left pubic body are unchanged. The right sacral fractureis not well-seen on this examination. No new fractures are seen. The hipjoint spaces are preserved. There is no diastasis at the sacroiliac jointsor pubic symphysis. The bones are osteopenic. Multiple surgical clips are seen adjacent to the medialleft femoral neck. Dictated by Migue Villatoro MD (residential sales manager) Dr. CONNIE Zeng M.D. have personally reviewed and interpreted thisexamination/study. This report was electronically signed by CONNIE DELVALLE M.D. on 05/21/20154:14 PM . Aman Brownlee MD DIAGNOSTIC IMAGING O RDERABLES * XR CHEST 1VW PORTABLE (05/21/2015 6:08 AM PHYSICIAN PRACTICE MARKET MANAGER) Only the most recent of2 resultswithin the time period is included. Anatomical Region Laterality Modality Chest Other Impressions 05/21/2015 5:38 PM PHYSICIAN PRACTICE MARKET MANAGER Impression: Median sternotomy wires, mediastinal surgical clips, and an aortic valve prosthesis are redemonstrated. A small left pleural effusion with associated atelectasis/airspace disease is seen. Hazy left lung airspace opacification is increased, and likely represents evolving pulmonary contusion in the setting of trauma. The right lung is clear. No pneumothorax is seen. The cardiomediastinal silhouette is unchanged. Multiple left rib fractures are redemonstrated. Dictated by Migue Villatoro MD (residential sales manager) This report was approved by Madi Villatoro on 05/21/2015 10:[address] WILL Zeng M.D. have personally reviewed and interpreted this examination/study. This report was electronically signed by WILL FUNG M.D. on 05/21/2015 5:38 PM . Narrative 05/21/2015 5:38 PM PHYSICIAN PRACTICE MARKET MANAGER Exam: Portable Chest X-ray, 1 view Date: 05/21/2015 6:08 AM History: trauma Comparison: None available Findings/ Procedure Note Will Fung MD - 06/12/2017 Exam: Portable Chest X-ray, 1 view Date: 05/21/2015 6:08 AM History: trauma Comparison: None available Findings/ IMPRESSION Impression: Median sternotomy wires, mediastinal surgical clips, and an aortic valveprosthesis are redemonstrated. A small left pleural effusion with associated atelectasis/airspace diseaseis seen. Hazy left lung airspace opacification is increased, and likelyrepresents evolving pulmonary contusion in the setting of trauma. Theright lung is clear. No pneumothorax is seen. The cardiomediastinal silhouette is unchanged. Multiple left ribfractures are redemonstrated. Dictated by Migue Villatoro MD (residential sales manager) This report was approved by Madi Villatoro on 05/21/2015 10:[address] WILL Zeng M.D. have personally reviewed and interpreted thisexamination/study. This report was electronically signed by WILL FUNG M.D. on 05/21/20155:38 PM . Julien Yang MD DIAGNOSTIC IMAGING O RDERABLES * XR ABDOMEN KUB PORTABLE (05/20/2015 5:25 AM PHYSICIAN PRACTICE MARKET MANAGER) Anatomical Region Laterality Modality Other Impressions 05/20/2015 10:17 AM PHYSICIAN PRACTICE MARKET MANAGER Impression: Nonobstructive bowel gas pattern. This report was electronically signed by DARRYN CHICAS MD on 05/20/2015 10:17 AM . Narrative 05/20/2015 10:17 AM PHYSICIAN PRACTICE MARKET MANAGER Exam: PX ABDOMEN 1 VW History: to evaluate gas pattern Comparison: None available. Findings: There are multiple gas-filled nondilated bowel loops. No dilated bowel is seen to suggest obstruction. Gas is seen in the colon. A left acetabular fracture with involvement of the obturator ring and iliac wing is demonstrated. Procedure Note Darryn Chicas MD - 06/12/2017 Exam: PX ABDOMEN 1 VW History: to evaluate gas pattern Comparison: None available. Findings: There are multiple gas-filled nondilated bowel loops. No dilated bowel isseen to suggest obstruction. Gas is seen in the colon. A left acetabularfracture with involvement of the obturator ring and iliac wing isdemonstrated. IMPRESSION Impression: Nonobstructive bowel gas pattern. This report was electronically signed by DARRYN CHICAS MD on 05/20/201510:17 AM . Julien Yang MD DIAGNOSTIC IMAGING O RDERABLES * ECHO 2D ONLY WO COLOR OR DOPPLER (05/20/2015 12:00 AM PHYSICIAN PRACTICE MARKET MANAGER) Anatomical Region Laterality Modality Other 05/20/2015 Julien Yang MD ECHOCARDIOGRAPHY RAD IANT * (ABNORMAL) URINALYSIS W/MICROSCOPIC NO CULTURE (05/19/2015 11:58 AM PHYSICIAN PRACTICE MARKET MANAGER) Color UA Yellow Straw, Yellow, Colorless, Light Yellow [facility] Clarity UA Clear Clear [facility] Specific Phillips UA >1.040(H) 1.001 - 1.030 [facility] Comment:Specific gravity res ults confirmed by refractometer. pH UA 8.5(H) 5.0 - 8.0 [facility] Protein UA 30(A) <=20 mg/dL [facility] Glucose UA Negative Negative mg/dL [facility] Ketone UA Negative Negative mg/dL [facility] Bilirubin UA Negative Negative mg/dL [facility] Blood UA Moderate(A) Negative [facility] Nitrite UA Negative Negative [facility] Leukocyte Esterase Negative Negative [facility] Urobilinogen UA <2.0 <2.0 mg/dL [facility] RBC UA 37(H) 0 - 8 /HPF [facility] WBC UA 2 0 - 2 /HPF [facility] Bacteria UA Rare Rare, Occasional, None /HPF [facility] Mucus UA Rare(A) None /LPF [facility] Urine specimen (specimen) 05/19/2015 11:58 AM PHYSICIAN PRACTICE MARKET MANAGER 05/19/2015 1:15 PM PHYSICIAN PRACTICE MARKET MANAGER Narrative [facility] - 05/19/2015 1:33 PM PHYSICIAN PRACTICE MARKET MANAGER Specific gravity results confirmed by refractometer. Julien Yang MD LAB - URINALYSIS ORD ERABLES [facility] [address] [place] [address] * CT CHEST ABDOMEN PELVIS W CONT (05/19/2015 11:20 AM PHYSICIAN PRACTICE MARKET MANAGER) Anatomical Region Laterality Modality Chest, Abdomen, Pelvis Other Impressions 05/19/2015 1:50 PM PHYSICIAN PRACTICE MARKET MANAGER IMPRESSION: 1. Multiple left-sided rib fractures with underlying left pulmonary contusions. Posttraumatic pneumatocele abutting the left fissure fissure with likely layering hemorrhage. Trace left pneumothorax. Unchanged nodular opacities along the periphery of both lungs, which may represent pulmonary contusions in the setting of trauma, however, follow-up to resolution is recommended. 2. Small intimal flap within the thoracic aorta at the isthmus, uncertain chronicity. Close follow-up is recommended. 3. Grade 3 left kidney laceration with increased left perinephric hematoma. Small amount of layering hemorrhage within the large left renal cyst, likely posttraumatic 4. Comminuted left pelvic fractures as detailed above. Increased presacral hematoma. 5. Nonobstructive bilateral renal calculi. These findings were discussed with Dr. Arroyo by Dr. Terrell at 1:47 PM on 05/19/2015. This report has been dictated by Rufina Terrell M.D. (Resident). I, Dr. JUANITO CALDERON M.D. have personally reviewed and interpreted this examination/study. This report was electronically signed by JUANITO CALDERON M.D. on 05/19/2015 1:50 PM . Narrative 05/19/2015 1:50 PM PHYSICIAN PRACTICE MARKET MANAGER EXAMINATION: Computed tomography (CT) of the chest, abdomen, and pelvis with contrast HISTORY: Renal lac and pelvic fractures on OSH CT, status post fall injury. TECHNIQUE: CT of the chest, abdomen, and pelvis was performed after the uneventful administration of 100 mL Omnipaque 350 intravenous contrast according to standard protocol. COMPARISON: Comparison is made to outside hospital CT of the chest, abdomen and pelvis dated 05/18/2015. 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 The aorta and main pulmonary arteries are normal in course and caliber. Atherosclerotic calcifications present in the thoracic aorta and coronary arteries. There is a intimal flap within the distal aortic arch at the aortic isthmus, of uncertain chronicity but also present on the prior examination. Atherosclerotic calcifications also identified in the abdominal aorta and iliac arteries. The remaining enhanced vascular structures appear normal. Chest: Left upper and lower lobe consolidations and groundglass opacities are present, likely representing pulmonary contusions in the setting of acute trauma. There is a small left pleural effusion. Posttraumatic pneumatocele, likely with layering hemorrhage is present in the left upper lobe abutting the left major fissure. There is trace left pneumothorax. Pleural-parenchymal scarring is present in the apices bilaterally, unchanged. Scattered nodular opacities are redemonstrated along the periphery of both lungs, the largest of which measures in the right upper lobe 8 x 7 mm (series 6, image 39) and left upper lobe measuring 1.9 cm (series 6 image 58). These could also represent pulmonary contusions in the setting of trauma, however, follow-up to resolution is recommended to exclude malignancy. Small volume of loculated fluid is present along the right major fissure. Centrilobular and paraseptal emphysema is present. The heart is enlarged. No pericardial effusion is present. Postoperative appearance of median sternotomy for aortic valve repair are redemonstrated. The trachea is patent and midline. The remaining mediastinal structures appear normal. No mediastinal, hilar, supraclavicular, or axillary lymphadenopathy is seen. The thyroid gland enhances homogenously. Abdomen/Pelvis: The liver enhances homogenously. No focal intrahepatic lesions are seen. The gallbladder is normal without evidence of wall thickening, pericholecystic fluid, or gallstones. The intrahepatic and extrahepatic bile ducts are nondilated. The spleen enhances homogenously without focal lesions. The pancreas and adrenal glands are normal. There is a 1.4 cm laceration in the anterior aspect of the mid left kidney with associated perinephric hematoma, consistent with grade 3 injury. The perinephric hematoma has increased since 05/18/2015. Multiple bilateral renal cysts are redemonstrated, the largest of which measures in the left kidney 5 cm. There is a small amount of layering hemorrhage within this cyst. Nonobstructing bilateral renal calculi are present, measuring in the mid right kidney up to 4 mm and in the mid left kidney up to 9 x 6 mm. There is no evidence of hydronephrosis. There is a small hiatal hernia. The stomach, small bowel, and large bowel are normal in caliber without evidence of wall thickening or obstruction. The appendix appears normal without appendicolith or surrounding inflammatory changes. There is no retroperitoneal lymphadenopathy. No free air is identified within the abdomen. The urinary bladder is decompressed with a Zuñiga catheter, limiting its evaluation. The prostate is normal in size. There is a small volume of hemorrhagic fluid in the presacral space of the pelvis. This has increased since 05/18/2015. Osseous: Bone windows demonstrate no suspicious lytic or blastic lesions. There are nondisplaced posterior left 9th-11th rib fractures. There are also mildly displaced left 3rd-7th rib fractures and nondisplaced posterior 6th and 7th left rib fractures. Chronic deformities are present in the lateral clavicles bilaterally, likely represents sequela of old injury. There is a comminuted anterior and posterior wall left acetabular fracture extending into the left iliac wing, with intra-articular extension. There is also a mildly comminuted and displaced fracture in the left inferior pubic ramus. A mildly displaced fracture is also identified in the left pubic body. There is multilevel degenerative disc disease in the spine, most pronounced at L5-S1. Procedure Note Juanito Calderon MD - 06/12/2017 EXAMINATION: Computed tomography (CT) of the chest, abdomen, and pelviswith contrast HISTORY: Renal lac and pelvic fractures on OSH CT, status post fallinjury. TECHNIQUE: CT of the chest, abdomen, and pelvis was performed after theuneventful administration of 100 mL Omnipaque 350 intravenous contrastaccording to standard protocol. COMPARISON: Comparison is made to outside hospital CT of the chest,abdomen and pelvis dated 05/18/2015. 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 The aorta and mainpulmonary arteries are normal in course and caliber. Atheroscleroticcalcifications present in the thoracic aorta and coronary arteries. Thereis a intimal flap within the distal aortic arch at the aortic isthmus, of uncertain chronicity but also present onthe prior examination. Atherosclerotic calcifications also identified inthe abdominal aorta and iliac arteries. The remaining enhanced vascularstructures appear normal. Chest: Left upper and lower lobe consolidations and groundglass opacities arepresent, likely representing pulmonary contusions in the setting of acutetrauma. There is a small left pleural effusion. Posttraumaticpneumatocele, likely with layering hemorrhage is present in the left upper lobe abutting the left major fissure. Thereis trace left pneumothorax. Pleural-parenchymal scarring is present in theapices bilaterally, unchanged. Scattered nodular opacities areredemonstrated along the periphery of both lungs, the largest of which measures in the right upper lobe 8 x 7 mm(series 6, image 39) and left upper lobe measuring 1.9 cm (series 6 image58). These could also represent pulmonary contusions in the setting oftrauma, however, follow-up to resolution is recommended to exclude malignancy. Small volume of loculatedfluid is present along the right major fissure. Centrilobular andparaseptal emphysema is present. The heart is enlarged. No pericardial effusion is present. Postoperativeappearance of median sternotomy for aortic valve repair areredemonstrated. The trachea is patent and midline. The remainingmediastinal structures appear normal. No mediastinal, hilar, supraclavicular, or axillary lymphadenopathy is seen. The thyroidgland enhances homogenously. Abdomen/Pelvis: The liver enhances homogenously. No focal intrahepatic lesions are seen.The gallbladder is normal without evidence of wall thickening,pericholecystic fluid, or gallstones. The intrahepatic and extrahepaticbile ducts are nondilated. The spleen enhances homogenously without focal lesions. The pancreas and adrenal glands arenormal. There is a 1.4 cm laceration in the anterior aspect of the mid left kidneywith associated perinephric hematoma, consistent with grade 3 injury. Theperinephric hematoma has increased since 05/18/2015. Multiple bilateralrenal cysts are redemonstrated, the largest of which measures in the left kidney 5 cm. There is a smallamount of layering hemorrhage within this cyst. Nonobstructing bilateralrenal calculi are present, measuring in the mid right kidney up to 4 mmand in the mid left kidney up to 9 x 6 mm. There is no evidence of hydronephrosis. There is a small hiatal hernia. The stomach, small bowel, and large bowelare normal in caliber without evidence of wall thickening or obstruction.The appendix appears normal without appendicolith or surroundinginflammatory changes. There is no retroperitoneal lymphadenopathy. No free air is identified within theabdomen. The urinary bladder is decompressed with a Zuñiga catheter, limiting itsevaluation. The prostate is normal in size. There is a small volume ofhemorrhagic fluid in the presacral space of the pelvis. This has increasedsince 05/18/2015. Osseous: Bone windows demonstrate no suspicious lytic or blastic lesions. There arenondisplaced posterior left 9th-11th rib fractures. There are also mildlydisplaced left 3rd-7th rib fractures and nondisplaced posterior 6th and7th left rib fractures. Chronic deformities are present in the lateral clavicles bilaterally, likelyrepresents sequela of old injury. There is a comminuted anterior andposterior wall left acetabular fracture extending into the left iliacwing, with intra-articular extension. There is also a mildly comminuted and displaced fracture in the left inferiorpubic ramus. A mildly displaced fracture is also identified in the leftpubic body. There is multilevel degenerative disc disease in the spine,most pronounced at L5-S1. IMPRESSION IMPRESSION: 1. Multiple left-sided rib fractures with underlying left pulmonarycontusions. Posttraumatic pneumatocele abutting the left fissure fissurewith likely layering hemorrhage. Trace left pneumothorax. Unchangednodular opacities along the periphery of both lungs, which may represent pulmonary contusions in the setting of trauma,however, follow-up to resolution is recommended. 2. Small intimal flap within the thoracic aorta at the isthmus, uncertainchronicity. Close follow-up is recommended. 3. Grade 3 left kidney laceration with increased left perinephrichematoma. Small amount of layering hemorrhage within the large left renalcyst, likely posttraumatic 4. Comminuted left pelvic fractures as detailed above. Increased presacralhematoma. 5. Nonobstructive bilateral renal calculi. These findings were discussed with Dr. Arroyo by Dr. Terrell at 1:47 PMon 05/19/2015. This report has been dictated by Rufina Terrell M.D. (Resident). I, Dr. JUANITO CALDERON M.D. have personally reviewed and interpreted thisexamination/study. This report was electronically signed by JUANITO CALDERON M.D. on 05/19/20151:50 PM . Julien Yang MD CT ORDERABLES * CT LUMBAR SPINE WO CONTRAST (05/19/2015 11:20 AM PHYSICIAN PRACTICE MARKET MANAGER) Anatomical Region Laterality Modality Spine Other Impressions 05/20/2015 10:35 AM PHYSICIAN PRACTICE MARKET MANAGER IMPRESSION: 1. New tiny volume left lateral intraventricular hemorrhage without ventriculomegaly. 2. Possible right cavernous sinus meningioma as described above. This could be further evaluated by magnetic resonance imaging (MRI) of the brain without and with contrast, if clinically warranted. 3. No evidence of acute fracture in the cervical, thoracic, or lumbar spine. The above findings were discussed with Dr. Hensley by Dr. Urban at 10:05 AM on 05/20/2015. This report was approved by Judy Urban M.D. on 05/20/2015 10:22 AM . I, Dr. LUIS ESCALANTE M.D. have personally reviewed and interpreted this examination/study. This report was electronically signed by LUIS ESCALANTE M.D. on 05/20/2015 10:35 AM . Narrative 05/20/2015 10:35 AM PHYSICIAN PRACTICE MARKET MANAGER EXAMINATION: 1. Computed tomography (CT) of the head without and with contrast 2. CT of the cervical spine without contrast 3. CT of the thoracic spine without contrast 4. CT of the lumbar spine without contrast HISTORY: Neck pain and back pain after trauma. TECHNIQUE: CT of the head and cervical spine was performed without contrast according to standard protocol. Then CT angiography of the head was obtained after the uneventful administration of 100 mL Omnipaque 350 intravenous contrast. Three dimensional postprocessing was performed by the technologist and sent to the workstation for review. Reformatted axial, sagittal, and coronal images of the thoracic and lumbar spine were obtained by the technologist from a concurrently performed body CT and sent to the workstation for review. FINDINGS: Comparison is made with studies from 05/18/2015. Non-angiographic findings There is a new tiny volume intraventricular hemorrhage in the dependent portion of the left lateral ventricle. The ventricles are nondilated. The basilar cisterns are patent. No mass effect or midline shift is seen. The hernandez-white matter differentiation is normal. Periventricular white matter hypoattenuation is indicative of chronic small vessel ischemic disease. There is vascular calcification of the carotid siphons. There is an enhancing extra-axial mass containing a punctate calcification arising from the superior margin of the right cavernous sinus and abutting the undersurface of the inferior right frontal lobe and medial right temporal lobe most likely representing a meningioma. Other than mucosal retention cysts versus polyps in the left maxillary sinus, the visualized portions of the orbits, paranasal sinuses, and mastoids appear normal. No acute fracture is identified. Angiographic findings: There is a atherosclerotic calcifications of the distal internal carotid arteries. There are areas of mild focal stenosis in the A2 segments of the right anterior cerebral artery. The anterior and middle cerebral arteries are otherwise appear normal. The meningioma abuts but does not encase the adjacent carotid terminus and right middle cerebral artery. The distal vertebral arteries appear normal. The basilar artery and posterior cerebral arteries appear normal. Cervical spine: The alignment is normal. Vertebral bodies are normal in height without evidence of acute fracture. Other than mid atlantooccipital degenerative osteoarthritis, the craniocervical junction otherwise appears normal. There is mild degenerative disc disease at C5-6 and C6-7. Degenerative C5-6 facet osteoarthritis is seen. There is moderate to severe C5-6 and C6-7 degenerative uncovertebral osteoarthritis, right greater than left with same degree of neuroforamina stenosis at these levels. There is atherosclerotic calcification of the carotid bifurcations. Thoracic spine: Mild thoracic dextroscoliosis is seen. Vertebral bodies are normal in height without evidence of acute fracture. Multiple level degenerative disc disease is present. No central canal stenosis is seen. The facets appear normal. No neural foraminal stenosis is seen. Nondisplaced left rib fractures are seen. Biapical scarring and a small right-sided pleural effusion is seen. There is a left basilar atelectasis with associated small pleural effusion. Atherosclerotic calcification of the aorta and aortic valve repair are partially imaged. Lumbar spine: Mild levoscoliosis is seen. Vertebral bodies are normal in height without evidence of acute fracture. Advanced L5-S1 degenerative disc disease and diffuse disc bulging in mid lumbar spine is seen. Moderate L3-4 and severe L4-5 central canal stenosis is present. Mild to moderate lower lumbar facet osteoarthritis is seen. Mild lower lumbar neural foraminal stenosis is present. Left renal laceration with perinephric hematoma, bilateral renal cysts and stones, and a fracture in the left pelvis and acetabulum with small presacral space hematoma are partially imaged. Please see body CT report for further details. Procedure Note Luis Escalante MD - 06/12/2017 EXAMINATION: 1. Computed tomography (CT) of the head without and with contrast 2. CT of the cervical spine without contrast 3. CT of the thoracic spine without contrast 4. CT of the lumbar spine without contrast HISTORY: Neck pain and back pain after trauma. TECHNIQUE: CT of the head and cervical spine was performed withoutcontrast according to standard protocol. Then CT angiography of the headwas obtained after the uneventful administration of 100 mL Omnipaque 350intravenous contrast. Three dimensional postprocessing was performed by the technologist and sent to theworkstation for review. Reformatted axial, sagittal, and coronal images ofthe thoracic and lumbar spine were obtained by the technologist from aconcurrently performed body CT and sent to the workstation for review. FINDINGS: Comparison is made with studies from 05/18/2015. Non-angiographic findings There is a new tiny volume intraventricular hemorrhage in the dependentportion of the left lateral ventricle. The ventricles are nondilated. Thebasilar cisterns are patent. No mass effect or midline shift is seen. Thegray-white matter differentiation is normal. Periventricular white matter hypoattenuation is indicative ofchronic small vessel ischemic disease. There is vascular calcification ofthe carotid siphons. There is an enhancing extra-axial mass containing apunctate calcification arising from the superior margin of the right cavernous sinus and abutting theundersurface of the inferior right frontal lobe and medial right temporallobe most likely representing a meningioma. Other than mucosal retentioncysts versus polyps in the left maxillary sinus, the visualized portions of the orbits, paranasal sinuses,and mastoids appear normal. No acute fracture is identified. Angiographic findings: There is a atherosclerotic calcifications of the distal internal carotidarteries. There are areas of mild focal stenosis in the A2 segments of theright anterior cerebral artery. The anterior and middle cerebral arteriesare otherwise appear normal. The meningioma abuts but does not encase the adjacent carotid terminus andright middle cerebral artery. The distal vertebral arteries appear normal.The basilar artery and posterior cerebral arteries appear normal. Cervical spine: The alignment is normal. Vertebral bodies are normal in height withoutevidence of acute fracture. Other than mid atlantooccipital degenerativeosteoarthritis, the craniocervical junction otherwise appears normal.There is mild degenerative disc disease at C5-6 and C6-7. Degenerative C5-6 facet osteoarthritis is seen. There ismoderate to severe C5-6 and C6-7 degenerative uncovertebralosteoarthritis, right greater than left with same degree of neuroforaminastenosis at these levels. There is atherosclerotic calcification of the carotid bifurcations. Thoracic spine: Mild thoracic dextroscoliosis is seen. Vertebral bodies are normal inheight without evidence of acute fracture. Multiple level degenerativedisc disease is present. No central canal stenosis is seen. The facetsappear normal. No neural foraminal stenosis is seen. Nondisplaced left rib fractures are seen. Biapicalscarring and a small right-sided pleural effusion is seen. There is a leftbasilar atelectasis with associated small pleural effusion.Atherosclerotic calcification of the aorta and aortic valve repair are partially imaged. Lumbar spine: Mild levoscoliosis is seen. Vertebral bodies are normal in height withoutevidence of acute fracture. Advanced L5-S1 degenerative disc disease anddiffuse disc bulging in mid lumbar spine is seen. Moderate L3-4 and severeL4-5 central canal stenosis is present. Mild to moderate lower lumbar facet osteoarthritis is seen. Mildlower lumbar neural foraminal stenosis is present. Left renal lacerationwith perinephric hematoma, bilateral renal cysts and stones, and afracture in the left pelvis and acetabulum with small presacral space hematoma are partially imaged.Please see body CT report for further details. IMPRESSION IMPRESSION: 1. New tiny volume left lateral intraventricular hemorrhage withoutventriculomegaly. 2. Possible right cavernous sinus meningioma as described above. Thiscould be further evaluated by magnetic resonance imaging (MRI) of thebrain without and with contrast, if clinically warranted. 3. No evidence of acute fracture in the cervical, thoracic, or lumbarspine. The above findings were discussed with Dr. Hensley by Dr. Urban at10:05 AM on 05/20/2015. This report was approved by Judy Urban M.D. on 05/20/2015 10:[address] LUIS Zeng M.D. have personally reviewed and interpreted thisexamination/study. This report was electronically signed by LUIS ESCALANTE M.D. on 05/20/201510:35 AM . Julien Yang MD CT ORDERABLES * CT THORACIC SPINE WO CONTRAST (05/19/2015 11:20 AM PHYSICIAN PRACTICE MARKET MANAGER) Anatomical Region Laterality Modality Spine Other Impressions 05/20/2015 10:35 AM PHYSICIAN PRACTICE MARKET MANAGER IMPRESSION: 1. New tiny volume left lateral intraventricular hemorrhage without ventriculomegaly. 2. Possible right cavernous sinus meningioma as described above. This could be further evaluated by magnetic resonance imaging (MRI) of the brain without and with contrast, if clinically warranted. 3. No evidence of acute fracture in the cervical, thoracic, or lumbar spine. The above findings were discussed with Dr. Hensley by Dr. Urban at 10:05 AM on 05/20/2015. This report was approved by Judy Urban M.D. on 05/20/2015 10:[address] LIUS Zeng M.D. have personally reviewed and interpreted this examination/study. This report was electronically signed by LUIS ESCALANTE M.D. on 05/20/2015 10:35 AM . Narrative 05/20/2015 10:35 AM PHYSICIAN PRACTICE MARKET MANAGER EXAMINATION: 1. Computed tomography (CT) of the head without and with contrast 2. CT of the cervical spine without contrast 3. CT of the thoracic spine without contrast 4. CT of the lumbar spine without contrast HISTORY: Neck pain and back pain after trauma. TECHNIQUE: CT of the head and cervical spine was performed without contrast according to standard protocol. Then CT angiography of the head was obtained after the uneventful administration of 100 mL Omnipaque 350 intravenous contrast. Three dimensional postprocessing was performed by the technologist and sent to the workstation for review. Reformatted axial, sagittal, and coronal images of the thoracic and lumbar spine were obtained by the technologist from a concurrently performed body CT and sent to the workstation for review. FINDINGS: Comparison is made with studies from 05/18/2015. Non-angiographic findings There is a new tiny volume intraventricular hemorrhage in the dependent portion of the left lateral ventricle. The ventricles are nondilated. The basilar cisterns are patent. No mass effect or midline shift is seen. The hernandez-white matter differentiation is normal. Periventricular white matter hypoattenuation is indicative of chronic small vessel ischemic disease. There is vascular calcification of the carotid siphons. There is an enhancing extra-axial mass containing a punctate calcification arising from the superior margin of the right cavernous sinus and abutting the undersurface of the inferior right frontal lobe and medial right temporal lobe most likely representing a meningioma. Other than mucosal retention cysts versus polyps in the left maxillary sinus, the visualized portions of the orbits, paranasal sinuses, and mastoids appear normal. No acute fracture is identified. Angiographic findings: There is a atherosclerotic calcifications of the distal internal carotid arteries. There are areas of mild focal stenosis in the A2 segments of the right anterior cerebral artery. The anterior and middle cerebral arteries are otherwise appear normal. The meningioma abuts but does not encase the adjacent carotid terminus and right middle cerebral artery. The distal vertebral arteries appear normal. The basilar artery and posterior cerebral arteries appear normal. Cervical spine: The alignment is normal. Vertebral bodies are normal in height without evidence of acute fracture. Other than mid atlantooccipital degenerative osteoarthritis, the craniocervical junction otherwise appears normal. There is mild degenerative disc disease at C5-6 and C6-7. Degenerative C5-6 facet osteoarthritis is seen. There is moderate to severe C5-6 and C6-7 degenerative uncovertebral osteoarthritis, right greater than left with same degree of neuroforamina stenosis at these levels. There is atherosclerotic calcification of the carotid bifurcations. Thoracic spine: Mild thoracic dextroscoliosis is seen. Vertebral bodies are normal in height without evidence of acute fracture. Multiple level degenerative disc disease is present. No central canal stenosis is seen. The facets appear normal. No neural foraminal stenosis is seen. Nondisplaced left rib fractures are seen. Biapical scarring and a small right-sided pleural effusion is seen. There is a left basilar atelectasis with associated small pleural effusion. Atherosclerotic calcification of the aorta and aortic valve repair are partially imaged. Lumbar spine: Mild levoscoliosis is seen. Vertebral bodies are normal in height without evidence of acute fracture. Advanced L5-S1 degenerative disc disease and diffuse disc bulging in mid lumbar spine is seen. Moderate L3-4 and severe L4-5 central canal stenosis is present. Mild to moderate lower lumbar facet osteoarthritis is seen. Mild lower lumbar neural foraminal stenosis is present. Left renal laceration with perinephric hematoma, bilateral renal cysts and stones, and a fracture in the left pelvis and acetabulum with small presacral space hematoma are partially imaged. Please see body CT report for further details. Procedure Note Luis Escalante MD - 06/12/2017 EXAMINATION: 1. Computed tomography (CT) of the head without and with contrast 2. CT of the cervical spine without contrast 3. CT of the thoracic spine without contrast 4. CT of the lumbar spine without contrast HISTORY: Neck pain and back pain after trauma. TECHNIQUE: CT of the head and cervical spine was performed withoutcontrast according to standard protocol. Then CT angiography of the headwas obtained after the uneventful administration of 100 mL Omnipaque 350intravenous contrast. Three dimensional postprocessing was performed by the technologist and sent to theworkstation for review. Reformatted axial, sagittal, and coronal images ofthe thoracic and lumbar spine were obtained by the technologist from aconcurrently performed body CT and sent to the workstation for review. FINDINGS: Comparison is made with studies from 05/18/2015. Non-angiographic findings There is a new tiny volume intraventricular hemorrhage in the dependentportion of the left lateral ventricle. The ventricles are nondilated. Thebasilar cisterns are patent. No mass effect or midline shift is seen. Thegray-white matter differentiation is normal. Periventricular white matter hypoattenuation is indicative ofchronic small vessel ischemic disease. There is vascular calcification ofthe carotid siphons. There is an enhancing extra-axial mass containing apunctate calcification arising from the superior margin of the right cavernous sinus and abutting theundersurface of the inferior right frontal lobe and medial right temporallobe most likely representing a meningioma. Other than mucosal retentioncysts versus polyps in the left maxillary sinus, the visualized portions of the orbits, paranasal sinuses,and mastoids appear normal. No acute fracture is identified. Angiographic findings: There is a atherosclerotic calcifications of the distal internal carotidarteries. There are areas of mild focal stenosis in the A2 segments of theright anterior cerebral artery. The anterior and middle cerebral arteriesare otherwise appear normal. The meningioma abuts but does not encase the adjacent carotid terminus andright middle cerebral artery. The distal vertebral arteries appear normal.The basilar artery and posterior cerebral arteries appear normal. Cervical spine: The alignment is normal. Vertebral bodies are normal in height withoutevidence of acute fracture. Other than mid atlantooccipital degenerativeosteoarthritis, the craniocervical junction otherwise appears normal.There is mild degenerative disc disease at C5-6 and C6-7. Degenerative C5-6 facet osteoarthritis is seen. There ismoderate to severe C5-6 and C6-7 degenerative uncovertebralosteoarthritis, right greater than left with same degree of neuroforaminastenosis at these levels. There is atherosclerotic calcification of the carotid bifurcations. Thoracic spine: Mild thoracic dextroscoliosis is seen. Vertebral bodies are normal inheight without evidence of acute fracture. Multiple level degenerativedisc disease is present. No central canal stenosis is seen. The facetsappear normal. No neural foraminal stenosis is seen. Nondisplaced left rib fractures are seen. Biapicalscarring and a small right-sided pleural effusion is seen. There is a leftbasilar atelectasis with associated small pleural effusion.Atherosclerotic calcification of the aorta and aortic valve repair are partially imaged. Lumbar spine: Mild levoscoliosis is seen. Vertebral bodies are normal in height withoutevidence of acute fracture. Advanced L5-S1 degenerative disc disease anddiffuse disc bulging in mid lumbar spine is seen. Moderate L3-4 and severeL4-5 central canal stenosis is present. Mild to moderate lower lumbar facet osteoarthritis is seen. Mildlower lumbar neural foraminal stenosis is present. Left renal lacerationwith perinephric hematoma, bilateral renal cysts and stones, and afracture in the left pelvis and acetabulum with small presacral space hematoma are partially imaged.Please see body CT report for further details. IMPRESSION IMPRESSION: 1. New tiny volume left lateral intraventricular hemorrhage withoutventriculomegaly. 2. Possible right cavernous sinus meningioma as described above. Thiscould be further evaluated by magnetic resonance imaging (MRI) of thebrain without and with contrast, if clinically warranted. 3. No evidence of acute fracture in the cervical, thoracic, or lumbarspine. The above findings were discussed with Dr. Hensley by Dr. Urban at10:05 AM on 05/20/2015. This report was approved by Judy Urban M.D. on 05/20/2015 10:[address] LUIS Zeng M.D. have personally reviewed and interpreted thisexamination/study. This report was electronically signed by LUIS ESCALANTE M.D. on 05/20/201510:35 AM . Julien Yang MD CT ORDERABLES * CT CERVICAL SPINE WO CONTRAST (05/19/2015 11:20 AM PHYSICIAN PRACTICE MARKET MANAGER) Anatomical Region Laterality Modality Spine Other Impressions 05/20/2015 10:35 AM PHYSICIAN PRACTICE MARKET MANAGER IMPRESSION: 1. New tiny volume left lateral intraventricular hemorrhage without ventriculomegaly. 2. Possible right cavernous sinus meningioma as described above. This could be further evaluated by magnetic resonance imaging (MRI) of the brain without and with contrast, if clinically warranted. 3. No evidence of acute fracture in the cervical, thoracic, or lumbar spine. The above findings were discussed with Dr. Hensley by Dr. Urban at 10:05 AM on 05/20/2015. This report was approved by Judy Urban M.D. on 05/20/2015 10:22 AM . Karri, Dr. LUIS ESCALANTE M.D. have personally reviewed and interpreted this examination/study. This report was electronically signed by LUIS ESCALANTE M.D. on 05/20/2015 10:35 AM . Narrative 05/20/2015 10:35 AM PHYSICIAN PRACTICE MARKET MANAGER EXAMINATION: 1. Computed tomography (CT) of the head without and with contrast 2. CT of the cervical spine without contrast 3. CT of the thoracic spine without contrast 4. CT of the lumbar spine without contrast HISTORY: Neck pain and back pain after trauma. TECHNIQUE: CT of the head and cervical spine was performed without contrast according to standard protocol. Then CT angiography of the head was obtained after the uneventful administration of 100 mL Omnipaque 350 intravenous contrast. Three dimensional postprocessing was performed by the technologist and sent to the workstation for review. Reformatted axial, sagittal, and coronal images of the thoracic and lumbar spine were obtained by the technologist from a concurrently performed body CT and sent to the workstation for review. FINDINGS: Comparison is made with studies from 05/18/2015. Non-angiographic findings There is a new tiny volume intraventricular hemorrhage in the dependent portion of the left lateral ventricle. The ventricles are nondilated. The basilar cisterns are patent. No mass effect or midline shift is seen. The hernandez-white matter differentiation is normal. Periventricular white matter hypoattenuation is indicative of chronic small vessel ischemic disease. There is vascular calcification of the carotid siphons. There is an enhancing extra-axial mass containing a punctate calcification arising from the superior margin of the right cavernous sinus and abutting the undersurface of the inferior right frontal lobe and medial right temporal lobe most likely representing a meningioma. Other than mucosal retention cysts versus polyps in the left maxillary sinus, the visualized portions of the orbits, paranasal sinuses, and mastoids appear normal. No acute fracture is identified. Angiographic findings: There is a atherosclerotic calcifications of the distal internal carotid arteries. There are areas of mild focal stenosis in the A2 segments of the right anterior cerebral artery. The anterior and middle cerebral arteries are otherwise appear normal. The meningioma abuts but does not encase the adjacent carotid terminus and right middle cerebral artery. The distal vertebral arteries appear normal. The basilar artery and posterior cerebral arteries appear normal. Cervical spine: The alignment is normal. Vertebral bodies are normal in height without evidence of acute fracture. Other than mid atlantooccipital degenerative osteoarthritis, the craniocervical junction otherwise appears normal. There is mild degenerative disc disease at C5-6 and C6-7. Degenerative C5-6 facet osteoarthritis is seen. There is moderate to severe C5-6 and C6-7 degenerative uncovertebral osteoarthritis, right greater than left with same degree of neuroforamina stenosis at these levels. There is atherosclerotic calcification of the carotid bifurcations. Thoracic spine: Mild thoracic dextroscoliosis is seen. Vertebral bodies are normal in height without evidence of acute fracture. Multiple level degenerative disc disease is present. No central canal stenosis is seen. The facets appear normal. No neural foraminal stenosis is seen. Nondisplaced left rib fractures are seen. Biapical scarring and a small right-sided pleural effusion is seen. There is a left basilar atelectasis with associated small pleural effusion. Atherosclerotic calcification of the aorta and aortic valve repair are partially imaged. Lumbar spine: Mild levoscoliosis is seen. Vertebral bodies are normal in height without evidence of acute fracture. Advanced L5-S1 degenerative disc disease and diffuse disc bulging in mid lumbar spine is seen. Moderate L3-4 and severe L4-5 central canal stenosis is present. Mild to moderate lower lumbar facet osteoarthritis is seen. Mild lower lumbar neural foraminal stenosis is present. Left renal laceration with perinephric hematoma, bilateral renal cysts and stones, and a fracture in the left pelvis and acetabulum with small presacral space hematoma are partially imaged. Please see body CT report for further details. Procedure Note Luis Escalante MD - 06/12/2017 EXAMINATION: 1. Computed tomography (CT) of the head without and with contrast 2. CT of the cervical spine without contrast 3. CT of the thoracic spine without contrast 4. CT of the lumbar spine without contrast HISTORY: Neck pain and back pain after trauma. TECHNIQUE: CT of the head and cervical spine was performed withoutcontrast according to standard protocol. Then CT angiography of the headwas obtained after the uneventful administration of 100 mL Omnipaque 350intravenous contrast. Three dimensional postprocessing was performed by the technologist and sent to theworkstation for review. Reformatted axial, sagittal, and coronal images ofthe thoracic and lumbar spine were obtained by the technologist from aconcurrently performed body CT and sent to the workstation for review. FINDINGS: Comparison is made with studies from 05/18/2015. Non-angiographic findings There is a new tiny volume intraventricular hemorrhage in the dependentportion of the left lateral ventricle. The ventricles are nondilated. Thebasilar cisterns are patent. No mass effect or midline shift is seen. Thegray-white matter differentiation is normal. Periventricular white matter hypoattenuation is indicative ofchronic small vessel ischemic disease. There is vascular calcification ofthe carotid siphons. There is an enhancing extra-axial mass containing apunctate calcification arising from the superior margin of the right cavernous sinus and abutting theundersurface of the inferior right frontal lobe and medial right temporallobe most likely representing a meningioma. Other than mucosal retentioncysts versus polyps in the left maxillary sinus, the visualized portions of the orbits, paranasal sinuses,and mastoids appear normal. No acute fracture is identified. Angiographic findings: There is a atherosclerotic calcifications of the distal internal carotidarteries. There are areas of mild focal stenosis in the A2 segments of theright anterior cerebral artery. The anterior and middle cerebral arteriesare otherwise appear normal. The meningioma abuts but does not encase the adjacent carotid terminus andright middle cerebral artery. The distal vertebral arteries appear normal.The basilar artery and posterior cerebral arteries appear normal. Cervical spine: The alignment is normal. Vertebral bodies are normal in height withoutevidence of acute fracture. Other than mid atlantooccipital degenerativeosteoarthritis, the craniocervical junction otherwise appears normal.There is mild degenerative disc disease at C5-6 and C6-7. Degenerative C5-6 facet osteoarthritis is seen. There ismoderate to severe C5-6 and C6-7 degenerative uncovertebralosteoarthritis, right greater than left with same degree of neuroforaminastenosis at these levels. There is atherosclerotic calcification of the carotid bifurcations. Thoracic spine: Mild thoracic dextroscoliosis is seen. Vertebral bodies are normal inheight without evidence of acute fracture. Multiple level degenerativedisc disease is present. No central canal stenosis is seen. The facetsappear normal. No neural foraminal stenosis is seen. Nondisplaced left rib fractures are seen. Biapicalscarring and a small right-sided pleural effusion is seen. There is a leftbasilar atelectasis with associated small pleural effusion.Atherosclerotic calcification of the aorta and aortic valve repair are partially imaged. Lumbar spine: Mild levoscoliosis is seen. Vertebral bodies are normal in height withoutevidence of acute fracture. Advanced L5-S1 degenerative disc disease anddiffuse disc bulging in mid lumbar spine is seen. Moderate L3-4 and severeL4-5 central canal stenosis is present. Mild to moderate lower lumbar facet osteoarthritis is seen. Mildlower lumbar neural foraminal stenosis is present. Left renal lacerationwith perinephric hematoma, bilateral renal cysts and stones, and afracture in the left pelvis and acetabulum with small presacral space hematoma are partially imaged.Please see body CT report for further details. IMPRESSION IMPRESSION: 1. New tiny volume left lateral intraventricular hemorrhage withoutventriculomegaly. 2. Possible right cavernous sinus meningioma as described above. Thiscould be further evaluated by magnetic resonance imaging (MRI) of thebrain without and with contrast, if clinically warranted. 3. No evidence of acute fracture in the cervical, thoracic, or lumbarspine. The above findings were discussed with Dr. Hensley by Dr. Urban at10:05 AM on 05/20/2015. This report was approved by Judy Urban M.D. on 05/20/2015 10:22 AM. Karri, Dr. LUIS ESCALANTE M.D. have personally reviewed and interpreted thisexamination/study. This report was electronically signed by LUIS ESCALANTE M.D. on 05/20/201510:35 AM . Julien Yang MD CT ORDERABLES * CT ANGIO BRAIN (05/19/2015 11:20 AM PHYSICIAN PRACTICE MARKET MANAGER) Anatomical Region Laterality Modality Head Other Impressions 05/20/2015 10:35 AM PHYSICIAN PRACTICE MARKET MANAGER IMPRESSION: 1. New tiny volume left lateral intraventricular hemorrhage without ventriculomegaly. 2. Possible right cavernous sinus meningioma as described above. This could be further evaluated by magnetic resonance imaging (MRI) of the brain without and with contrast, if clinically warranted. 3. No evidence of acute fracture in the cervical, thoracic, or lumbar spine. The above findings were discussed with Dr. Hensley by Dr. Urban at 10:05 AM on 05/20/2015. This report was approved by Judy Urban M.D. on 05/20/2015 10:22 AM . I, Dr. LUIS ESCALANTE M.D. have personally reviewed and interpreted this examination/study. This report was electronically signed by LUIS ESCALANTE M.D. on 05/20/2015 10:35 AM . Narrative 05/20/2015 10:35 AM PHYSICIAN PRACTICE MARKET MANAGER EXAMINATION: 1. Computed tomography (CT) of the head without and with contrast 2. CT of the cervical spine without contrast 3. CT of the thoracic spine without contrast 4. CT of the lumbar spine without contrast HISTORY: Neck pain and back pain after trauma. TECHNIQUE: CT of the head and cervical spine was performed without contrast according to standard protocol. Then CT angiography of the head was obtained after the uneventful administration of 100 mL Omnipaque 350 intravenous contrast. Three dimensional postprocessing was performed by the technologist and sent to the workstation for review. Reformatted axial, sagittal, and coronal images of the thoracic and lumbar spine were obtained by the technologist from a concurrently performed body CT and sent to the workstation for review. FINDINGS: Comparison is made with studies from 05/18/2015. Non-angiographic findings There is a new tiny volume intraventricular hemorrhage in the dependent portion of the left lateral ventricle. The ventricles are nondilated. The basilar cisterns are patent. No mass effect or midline shift is seen. The hernandez-white matter differentiation is normal. Periventricular white matter hypoattenuation is indicative of chronic small vessel ischemic disease. There is vascular calcification of the carotid siphons. There is an enhancing extra-axial mass containing a punctate calcification arising from the superior margin of the right cavernous sinus and abutting the undersurface of the inferior right frontal lobe and medial right temporal lobe most likely representing a meningioma. Other than mucosal retention cysts versus polyps in the left maxillary sinus, the visualized portions of the orbits, paranasal sinuses, and mastoids appear normal. No acute fracture is identified. Angiographic findings: There is a atherosclerotic calcifications of the distal internal carotid arteries. There are areas of mild focal stenosis in the A2 segments of the right anterior cerebral artery. The anterior and middle cerebral arteries are otherwise appear normal. The meningioma abuts but does not encase the adjacent carotid terminus and right middle cerebral artery. The distal vertebral arteries appear normal. The basilar artery and posterior cerebral arteries appear normal. Cervical spine: The alignment is normal. Vertebral bodies are normal in height without evidence of acute fracture. Other than mid atlantooccipital degenerative osteoarthritis, the craniocervical junction otherwise appears normal. There is mild degenerative disc disease at C5-6 and C6-7. Degenerative C5-6 facet osteoarthritis is seen. There is moderate to severe C5-6 and C6-7 degenerative uncovertebral osteoarthritis, right greater than left with same degree of neuroforamina stenosis at these levels. There is atherosclerotic calcification of the carotid bifurcations. Thoracic spine: Mild thoracic dextroscoliosis is seen. Vertebral bodies are normal in height without evidence of acute fracture. Multiple level degenerative disc disease is present. No central canal stenosis is seen. The facets appear normal. No neural foraminal stenosis is seen. Nondisplaced left rib fractures are seen. Biapical scarring and a small right-sided pleural effusion is seen. There is a left basilar atelectasis with associated small pleural effusion. Atherosclerotic calcification of the aorta and aortic valve repair are partially imaged. Lumbar spine: Mild levoscoliosis is seen. Vertebral bodies are normal in height without evidence of acute fracture. Advanced L5-S1 degenerative disc disease and diffuse disc bulging in mid lumbar spine is seen. Moderate L3-4 and severe L4-5 central canal stenosis is present. Mild to moderate lower lumbar facet osteoarthritis is seen. Mild lower lumbar neural foraminal stenosis is present. Left renal laceration with perinephric hematoma, bilateral renal cysts and stones, and a fracture in the left pelvis and acetabulum with small presacral space hematoma are partially imaged. Please see body CT report for further details. Procedure Note Luis Escalante MD - 06/12/2017 EXAMINATION: 1. Computed tomography (CT) of the head without and with contrast 2. CT of the cervical spine without contrast 3. CT of the thoracic spine without contrast 4. CT of the lumbar spine without contrast HISTORY: Neck pain and back pain after trauma. TECHNIQUE: CT of the head and cervical spine was performed withoutcontrast according to standard protocol. Then CT angiography of the headwas obtained after the uneventful administration of 100 mL Omnipaque 350intravenous contrast. Three dimensional postprocessing was performed by the technologist and sent to theworkstation for review. Reformatted axial, sagittal, and coronal images ofthe thoracic and lumbar spine were obtained by the technologist from aconcurrently performed body CT and sent to the workstation for review. FINDINGS: Comparison is made with studies from 05/18/2015. Non-angiographic findings There is a new tiny volume intraventricular hemorrhage in the dependentportion of the left lateral ventricle. The ventricles are nondilated. Thebasilar cisterns are patent. No mass effect or midline shift is seen. Thegray-white matter differentiation is normal. Periventricular white matter hypoattenuation is indicative ofchronic small vessel ischemic disease. There is vascular calcification ofthe carotid siphons. There is an enhancing extra-axial mass containing apunctate calcification arising from the superior margin of the right cavernous sinus and abutting theundersurface of the inferior right frontal lobe and medial right temporallobe most likely representing a meningioma. Other than mucosal retentioncysts versus polyps in the left maxillary sinus, the visualized portions of the orbits, paranasal sinuses,and mastoids appear normal. No acute fracture is identified. Angiographic findings: There is a atherosclerotic calcifications of the distal internal carotidarteries. There are areas of mild focal stenosis in the A2 segments of theright anterior cerebral artery. The anterior and middle cerebral arteriesare otherwise appear normal. The meningioma abuts but does not encase the adjacent carotid terminus andright middle cerebral artery. The distal vertebral arteries appear normal.The basilar artery and posterior cerebral arteries appear normal. Cervical spine: The alignment is normal. Vertebral bodies are normal in height withoutevidence of acute fracture. Other than mid atlantooccipital degenerativeosteoarthritis, the craniocervical junction otherwise appears normal.There is mild degenerative disc disease at C5-6 and C6-7. Degenerative C5-6 facet osteoarthritis is seen. There ismoderate to severe C5-6 and C6-7 degenerative uncovertebralosteoarthritis, right greater than left with same degree of neuroforaminastenosis at these levels. There is atherosclerotic calcification of the carotid bifurcations. Thoracic spine: Mild thoracic dextroscoliosis is seen. Vertebral bodies are normal inheight without evidence of acute fracture. Multiple level degenerativedisc disease is present. No central canal stenosis is seen. The facetsappear normal. No neural foraminal stenosis is seen. Nondisplaced left rib fractures are seen. Biapicalscarring and a small right-sided pleural effusion is seen. There is a leftbasilar atelectasis with associated small pleural effusion.Atherosclerotic calcification of the aorta and aortic valve repair are partially imaged. Lumbar spine: Mild levoscoliosis is seen. Vertebral bodies are normal in height withoutevidence of acute fracture. Advanced L5-S1 degenerative disc disease anddiffuse disc bulging in mid lumbar spine is seen. Moderate L3-4 and severeL4-5 central canal stenosis is present. Mild to moderate lower lumbar facet osteoarthritis is seen. Mildlower lumbar neural foraminal stenosis is present. Left renal lacerationwith perinephric hematoma, bilateral renal cysts and stones, and afracture in the left pelvis and acetabulum with small presacral space hematoma are partially imaged.Please see body CT report for further details. IMPRESSION IMPRESSION: 1. New tiny volume left lateral intraventricular hemorrhage withoutventriculomegaly. 2. Possible right cavernous sinus meningioma as described above. Thiscould be further evaluated by magnetic resonance imaging (MRI) of thebrain without and with contrast, if clinically warranted. 3. No evidence of acute fracture in the cervical, thoracic, or lumbarspine. The above findings were discussed with Dr. eHnsley by Dr. Urban at10:05 AM on 05/20/2015. This report was approved by Judy Urban M.D. on 05/20/2015 10:[address] LUIS Zneg M.D. have personally reviewed and interpreted thisexamination/study. This report was electronically signed by LUIS ESCALANTE M.D. on 05/20/201510:35 AM . Julien Yang MD CT ORDERABLES * XR PELVIS 1 OR 2VW (05/19/2015 3:39 AM PHYSICIAN PRACTICE MARKET MANAGER) Only the most recent of2 resultswithin the time period is included. Anatomical Region Laterality Modality Pelvis Other Impressions 05/19/2015 5:17 PM PHYSICIAN PRACTICE MARKET MANAGER impression: Bowel gas and stool partially obscure osseous details, limiting evaluation. A mildly displaced fracture of the left pubic body extending into the left superior and inferior pubic rami is unchanged in alignment. The sacroiliac joints and the pubic symphysis are not widened. The femoral heads appear aligned with their respective acetabula on this single view study. Subtle minimally displaced fracture of the right sacral ala is again suggested. This report has been dictated by Laly Walton M.D. (Resident). Dr. JUANITO Zeng M.D. have personally reviewed and interpreted this examination/study. This report was electronically signed by JUANITO CALDERON M.D. on 05/19/2015 5:17 PM . Narrative 05/19/2015 5:17 PM PHYSICIAN PRACTICE MARKET MANAGER Exam: Pelvis, portable AP supine view Date: 05/19/2015 at 3:30 AM History: 75-year-old male status post traction. Comparison: Portable pelvis radiograph dated 05/18/2015 and pelvis Judet view radiographs dated 3:32 AM. Findings/ Procedure Note Juanito Calderon MD - 06/12/2017 Exam: Pelvis, portable AP supine view Date: 05/19/2015 at 3:30 AM History: 75-year-old male status post traction. Comparison: Portable pelvis radiograph dated 05/18/2015 and pelvis Judetview radiographs dated 3:32 AM. Findings/ IMPRESSION impression: Bowel gas and stool partially obscure osseous details, limitingevaluation. A mildly displaced fracture of the left pubic body extending into the leftsuperior and inferior pubic rami is unchanged in alignment. The sacroiliacjoints and the pubic symphysis are not widened. The femoral heads appearaligned with their respective acetabula on this single view study. Subtle minimally displaced fractureof the right sacral ala is again suggested. This report has been dictated by Laly Walton M.D. (Resident). Dr. JUANITO Zeng M.D. have personally reviewed and interpreted thisexamination/study. This report was electronically signed by JUANITO CALDERON M.D. on 05/19/20155:17 PM . Julien Yang MD DIAGNOSTIC IMAGING O RDERABLES * XR KNEE LEFT 2VW OR LESS (05/19/2015 12:30 AM PHYSICIAN PRACTICE MARKET MANAGER) Only the most recent of2 resultswithin the time period is included. Anatomical Region Laterality Modality Lower Extremity Other Impressions 05/19/2015 4:43 PM PHYSICIAN PRACTICE MARKET MANAGER impression: A traction pin has been placed through the distal femoral metadiaphysis. A small amount of adjacent soft tissue gas is present. Surgical clips are redemonstrated along the medial aspect of the knee. No acute fracture or dislocation is identified. A small knee joint effusion is present. There is no focal soft tissue swelling. This report has been dictated by Laly Walton M.D. (Resident). Dr. JUANITO Zeng M.D. have personally reviewed and interpreted this examination/study. This report was electronically signed by JUANITO CALDERON M.D. on 05/19/2015 4:43 PM . Narrative 05/19/2015 4:43 PM PHYSICIAN PRACTICE MARKET MANAGER Exam: Left knee, portable 2 views Date: 05/19/2015 History: 75-year-old male status post traction. Comparison: Portable left knee radiographs dated 05/18/2015 at 10:30 PM. Findings/ Procedure Note Juanito Calderon MD - 06/12/2017 Exam: Left knee, portable 2 views Date: 05/19/2015 History: 75-year-old male status post traction. Comparison: Portable left knee radiographs dated 05/18/2015 at 10:30 PM. Findings/ IMPRESSION impression: A traction pin has been placed through the distal femoral metadiaphysis. Asmall amount of adjacent soft tissue gas is present. Surgical clips areredemonstrated along the medial aspect of the knee. No acute fracture or dislocation is identified. A small knee jointeffusion is present. There is no focal soft tissue swelling. This report has been dictated by Laly Walton M.D. (Resident). Dr. JUANITO Zeng M.D. have personally reviewed and interpreted thisexamination/study. This report was electronically signed by JUANITO CALDERON M.D. on 05/19/20154:43 PM . Julien Yang MD DIAGNOSTIC IMAGING O RDERABLES * CT HEAD WO CONTRAST (05/18/2015 11:16 PM PHYSICIAN PRACTICE MARKET MANAGER) Anatomical Region Laterality Modality Head Other Impressions 05/19/2015 11:29 AM PHYSICIAN PRACTICE MARKET MANAGER IMPRESSION: 1. Hyperattenuating lesion with internal calcifications between the suprasellar cistern and anterior right temporal lobe adjacent to the anterior right clinoid process and internal carotid artery in this region. Differential considerations include skull base meningioma, aneurysm, metastasis, or potentially a lesion originating from the right cavernous sinus. Recommend MR brain tumor protocol and MRA of the head for further evaluation. This report was approved by Madi Villatoro on 05/19/2015 10:[address] ARTIE Zeng M.D. have personally reviewed and interpreted this examination/study. This report was electronically signed by ARTIE RAUSCH M.D. on 05/19/2015 11:29 AM . Narrative 05/19/2015 11:29 AM PHYSICIAN PRACTICE MARKET MANAGER EXAMINATION: Computed tomography (CT) of the head without contrast HISTORY: Head pain after fall from ladder, incidentaloma. TECHNIQUE: CT of the head was performed without contrast according to standard protocol. FINDINGS: No prior study is available for comparison. There is a hyperattenuating lesion with associated calcifications, measuring 1.7 cm AP by 1.7 cm TV by 1.5 cm CC, between the right aspect of the suprasellar cistern and the anterior right temporal lobe adjacent to the anterior right clinoid process and internal carotid artery in this region. The lesion appears to be extra-axial in location and exerts minimal local mass effect. No acute intra- or extra-axial fluid collections are identified. There is mild cerebral volume loss with associated ex vacuo ventricular dilatation. The basilar cisterns are patent. No midline shift is seen. The hernandez-white matter differentiation is normal. Periventricular white matter hypoattenuation is indicative of chronic small vessel ischemic disease. There is vascular calcification of the carotid siphons. Other than mucus retention cysts versus polyps in the left maxillary sinus, the visualized portions of the orbits, paranasal sinuses, and mastoids appear normal. No acute fracture is identified. Procedure Note Artie Rausch MD - 06/12/2017 EXAMINATION: Computed tomography (CT) of the head without contrast HISTORY: Head pain after fall from ladder, incidentaloma. TECHNIQUE: CT of the head was performed without contrast according tostandard protocol. FINDINGS: No prior study is available for comparison. There is a hyperattenuating lesion with associated calcifications,measuring 1.7 cm AP by 1.7 cm TV by 1.5 cm CC, between the right aspect ofthe suprasellar cistern and the anterior right temporal lobe adjacent tothe anterior right clinoid process and internal carotid artery in this region. The lesion appears to beextra-axial in location and exerts minimal local mass effect. No acuteintra- or extra-axial fluid collections are identified. There is mildcerebral volume loss with associated ex vacuo ventricular dilatation. The basilar cisterns are patent. No midline shiftis seen. The hernandez-white matter differentiation is normal. Periventricularwhite matter hypoattenuation is indicative of chronic small vesselischemic disease. There is vascular calcification of the carotid siphons. Other than mucus retention cystsversus polyps in the left maxillary sinus, the visualized portions of theorbits, paranasal sinuses, and mastoids appear normal. No acute fractureis identified. IMPRESSION IMPRESSION: 1. Hyperattenuating lesion with internal calcifications between thesuprasellar cistern and anterior right temporal lobe adjacent to theanterior right clinoid process and internal carotid artery in this region.Differential considerations include skull base meningioma, aneurysm, metastasis, or potentially a lesion originatingfrom the right cavernous sinus. Recommend MR brain tumor protocol and MRAof the head for further evaluation. This report was approved by Madi Villatoro on 05/19/2015 10:04 AM . I, Dr. ARTIE RAUSCH M.D. have personally reviewed and interpreted thisexamination/study. This report was electronically signed by ARTIE RAUSCH M.D. on 05/19/201511:29 AM . Julien Yang MD CT ORDERABLES * DRUG ABUSE PANEL 10-20+ETHANOL URINE NO CONFIRM (05/18/2015 10:14 PM PHYSICIAN PRACTICE MARKET MANAGER) Amphetamines Screen Urine Negative Negative: < 1000 ng/mL [facility] Barbiturates Screen Urine Negative Negative: < 200 ng/mL [facility] Benzodiazepine Screen Urine Negative Negative: < 200 ng/mL [facility] Opiates Urine Negative Negative: < 300 ng/mL [facility] Cocaine Metabolites Urine Negative Negative: < 300 ng/mL [facility] Phencyclidine Screen Urine Negative Negative: < 25 ng/ml [facility] Cannabinoids Screen Urine Negative Negative: <50 ng/mL [facility] Methadone Screen Urine Negative Negative: < 300 ng/mL [facility] Urine specimen (specimen) 05/18/2015 10:14 PM PHYSICIAN PRACTICE MARKET MANAGER 05/18/2015 10:18 PM PHYSICIAN PRACTICE MARKET MANAGER Narrative [facility] - 05/18/2015 10:37 PM PHYSICIAN PRACTICE MARKET MANAGER The Urine Toxicology Screening Panel does not screen for Propoxyphene, Meprobamate, Carisoprodol, Trazodone, [id number] medications and/or volatiles (Acetone, Isopropanol, Methanol or Ethylene Glycol). Ethanol, Salicylate, Acetaminophen, Tricyclic Antidepressants and several therapeutic drugs may be individually assayed in serum or plasma specimen. Toxicology testing by the [facility] is an aid to medical diagnosis and treatment of patients. No documented chain of custody was maintained. Results are intended to be used for clinical purposes only. Julien Yang MD LAB - URINE CHEMISTR Y ORDERABLES Performing Organization Address City/[facility]/ZIP Co de Phone Number [address] [phone] * (ABNORMAL) BLOOD GASES ART (05/18/2015 9:22 PM PHYSICIAN PRACTICE MARKET MANAGER) pH Arterial 7.40 7.35 - 7.45 [facility] pCO2 Arterial 38 35 - 45 mmHg [facility] pO2 Arterial 73 71 - 95 mmHg [facility] HCO3 Arterial 22.7 22.0 - 26.0 mmol/L [facility] TCO2 Arterial 23.9(L) 25.0 - 29.0 mmol/L [facility] Base Excess Arterial -1.7 -2.0 - 2.0 mmol/L [facility] Hemoglobin Arterial 14.2 13.5 - 17.5 g/dL [facility] Oxyhemoglobin Arterial 93.2(L) 95.0 - 100.0 % [facility] Carboxyhemoglobin 0.6 0.0 - 3.0 % [facility] Methemoglobin 0.3 0.0 - 2.0 % [facility] FI O2 Arterial 21.0 % [facility] Comment:2L N/C Blood specimen (specimen) BLOOD SPECIMEN / Unknown 05/18/2015 9:22 PM PHYSICIAN PRACTICE MARKET MANAGER 05/18/2015 9:24 PM PHYSICIAN PRACTICE MARKET MANAGER Narrative [facility] - 05/18/2015 9:29 PM PHYSICIAN PRACTICE MARKET MANAGER FIO2->21 2L N/C Fauzia Arroyo MD LAB - BLOOD GASES OR DERABLES Performing Organization Address City/[facility]/ZIP Co de Phone Number [address] [phone] * PTT SLU (05/18/2015 8:36 PM PHYSICIAN PRACTICE MARKET MANAGER) APTT 24.0 23.0 - 38.4 Seconds [facility] Comment:Suggested therapeuti c range for full dose I.V. heparin therapy for venous thromboembolism is 66.0-91.0 seconds. Blood specimen (specimen) BLOOD SPECIMEN / Unknown 05/18/2015 8:36 PM PHYSICIAN PRACTICE MARKET MANAGER 05/18/2015 8:39 PM PHYSICIAN PRACTICE MARKET MANAGER Narrative [facility] - 05/18/2015 9:05 PM PHYSICIAN PRACTICE MARKET MANAGER Is patient on Heparin, Argatroban or Dabigatran?->N Julien Yang MD LAB - COAGULATION OR DERABLES Performing Organization Address City/[facility] Co de Phone Number [address] [phone] * (ABNORMAL) HEPATIC FUNCTION PANEL (05/18/2015 8:36 PM PHYSICIAN PRACTICE MARKET MANAGER) Protein Total 6.1 6.0 - 8.3 g/dL [facility] Albumin 3.9 3.4 - 5.0 g/dL [facility] Bilirubin Total 0.7 0.2 - 1.2 mg/dL [facility] Bilirubin Conjugated 0.2 0.0 - 0.5 mg/dL [facility] Bilirubin Unconjugated 0.5 Unconjugated Bilirubin is a calculated value: Reference ranges have not been established. mg/dL [facility] Alkaline Phosphatase 69 40 - 150 Units/L [facility] ALT 37 0 - 55 Units/L [facility] AST 42(H) 5 - 34 Units/L [facility] Albumin/Globulin Ratio 1.8 1.1 - 2.3 [facility] Blood specimen (specimen) BLOOD SPECIMEN / Unknown 05/18/2015 8:36 PM PHYSICIAN PRACTICE MARKET MANAGER 05/18/2015 8:39 PM PHYSICIAN PRACTICE MARKET MANAGER Julien Yang MD LAB - CHEMISTRY ORDE RABLES Performing Organization Address [facility]/ZIP Co de Phone Number [address] [phone] * LIPASE BLOOD (05/18/2015 8:36 PM PHYSICIAN PRACTICE MARKET MANAGER) Lipase 20 8 - 78 Units/L [facility] Blood specimen (specimen) BLOOD SPECIMEN / Unknown 05/18/2015 8:36 PM PHYSICIAN PRACTICE MARKET MANAGER 05/18/2015 8:39 PM PHYSICIAN PRACTICE MARKET MANAGER Julien Yang MD LAB - CHEMISTRY MEGHAN BAKER Performing Organization Address [facility] Co de Phone Number [address] [phone] * (ABNORMAL) LACTIC ACID BLOOD (05/18/2015 8:36 PM PHYSICIAN PRACTICE MARKET MANAGER) Pathologist [facility] Lactic Acid-Stat 2.9(H) 0.5 - 2.2 mmol/L [facility] Blood specimen (specimen) BLOOD SPECIMEN / Unknown 05/18/2015 8:36 PM PHYSICIAN PRACTICE MARKET MANAGER 05/18/2015 8:39 PM PHYSICIAN PRACTICE MARKET MANAGER Julien Yang MD LAB - CHEMISTRY MEGHAN BAKER Performing Organization Address [facility] de Phone Number [address] [phone] * AMYLASE BLOOD (05/18/2015 8:36 PM PHYSICIAN PRACTICE MARKET MANAGER) Pathologist [facility] Amylase 48 25 - 125 Units/L [facility] Blood specimen (specimen) BLOOD SPECIMEN / Unknown 05/18/2015 8:36 PM PHYSICIAN PRACTICE MARKET MANAGER 05/18/2015 8:39 PM PHYSICIAN PRACTICE MARKET MANAGER Julien Yang MD LAB - CHEMISTRY MEGHAN BAKER Performing Organization Address [facility] de Phone Number [address] [phone] * ALCOHOL ETHYL BLOOD (05/18/2015 8:36 PM PHYSICIAN PRACTICE MARKET MANAGER) Pathologist [facility] Interpretation Ethanol None Detected None Detected mg/dL [facility] Comment:Ethanol levels less than 10 mg/dL are resulted as None detected . Blood specimen (specimen) BLOOD SPECIMEN / Unknown 05/18/2015 8:36 PM PHYSICIAN PRACTICE MARKET MANAGER 05/18/2015 8:39 PM PHYSICIAN PRACTICE MARKET MANAGER Julien Yang MD LAB - CHEMISTRY MEGHAN BAKER Performing Organization Address [facility]/ZIP Co de Phone Number [place] [id number] [address] [phone] * CROSSMATCH RBC LEUKOREDUCED (05/18/2015 8:35 PM PHYSICIAN PRACTICE MARKET MANAGER) 05/18/2015 8:35 PM PHYSICIAN PRACTICE MARKET MANAGER 05/18/2015 9:32 PM PHYSICIAN PRACTICE MARKET MANAGER Narrative [facility] - 05/18/2015 8:35 PM PHYSICIAN PRACTICE MARKET MANAGER # of Units->6 Fauzia Arroyo MD LAB - BLOOD BANK ORD ERABLES Performing Organization Address City/[facility]/ZIP Co de Phone Number [facility] [address] * TYPE + SCREEN PANEL (05/18/2015 8:35 PM PHYSICIAN PRACTICE MARKET MANAGER) Typem A NEG [facility] Antibody Screen NEG [facility] Blood specimen (specimen) 05/18/2015 8:35 PM PHYSICIAN PRACTICE MARKET MANAGER 05/18/2015 8:48 PM PHYSICIAN PRACTICE MARKET MANAGER Fauzia Arroyo MD LAB - BLOOD BANK ORD ERAKELLY Performing Organization Address City/[facility] Co de Phone Number [facility] [address] Care Teams Freight Agent Relationship Specialty [place] [address] [place] [address] PCP - General Internal Medicine 01/06/24 Madi Wills OD [address] [place] [address] Neuro Ophthalmology 07/27/17
--- OUTSIDE RECORDS SUMMARY | 2024-05-23 18:10 | XMS_ITS | Encounter Summary ---
Author Organization [facility] Address [address] [place] [address] Care Team Providers Care Brake Tester Name Role Phone Ruben Huang DO Primary Care Provider [phone] Bebeto Vargas MD Unavailable [phone] Halina Solorzano MD Primary Care Provider Poncho Wu MD Unavailable [phone] Gulshan Gonzalez MD Unavailable [phone] Aly Hidalgo MD Unavailable [phone] Akanksha Gibson DO Primary Care Provider [phone] Encounter Details Date Type Department Care Team (Late st Contact Info) Description 11/07/2021 Abstract [facility] [address] Andi Myers MA Social History Tobacco Use Types Packs/Day Years Used Date Smoking Tobacco: Former Cigarettes Q uit: 1979 Smokeless Tobacco: Never Alcohol Use Standard Drinks/Week Comments No 0 (1 standard drink = 0.6 oz pur e alcohol) Sex and Gender Information Value Date Recorded Sex Assigned at Male 05/18/2024 3:35 PM NETWORK TECHNICAL ANALYST Legal Sex Male 11:50 PM CDT Gender Identity Not on file Sexual Orientation Not on file Occupation Industry Job Start Date Job End Date Not on file Not on file Not on file Not on file COVID-19 Exposure Response Date Recorded In the last 10 days, have yo u been in contact with someone who was confirmed or suspected to have Coronavirus/COVID-19? Unable to assess 10/23/2021 10:03 AM CDT documented as of this encounter Plan of Treatment Upcoming Encounters Date Type Department Care Team (Late st Contact Info) Description 08/21/2024 1:15 PM CDT Office Visit [facility] [address] [place] [address] Poncho Wu MD [facility] [address] [place], [place] [id number] 11/23/2024 10:15 AM CDT Office Visit [facility], [facility] [address] [place], [place] [address] Lela García PA [address] [facility] [address] [place], [place] [id number] documented as of this encounter Procedures Procedure Name Priority Date/Time Associated Diagnosis Comments CBC (OUTSIDE LAB) Routine 11/06/2021 documented in this encounter Results * CBC (OUTSIDE LAB) (11/06/2021) WBC 5.9 HGB 15.3 HCT 44.0 PLT 192 11/06/2021 us Doc [facility] Abstract LAB-OUTSIDE/ABSTRACTED Final Result documented in this encounter Visit Diagnoses Not on filedocumented in this encounter Additional Health Concerns Infection Onset Date Last Indicated Resolved Time COVID-19 Rule Out 02/05/2022 02/05/2022 02/05/2022 9:22 AM NETWORK TECHNICAL ANALYST COVID-19 Rule Out 03/31/2023 03/31/2023 03/31/2023 9:59 PM NETWORK TECHNICAL ANALYST COVID-19 Rule Out 01/26/2024 01/26/2024 01/26/2024 2:10 PM NETWORK TECHNICAL ANALYST documented as of this encounter Care Teams Brake Tester Relationship Specialty Start Date End Date Ruben Huang DO PCP - General FAMILY PRACTICE 11/07/15 02/11/22 Halina Solorzano MD [address] [place] [address] PCP - General INTERNAL MEDICINE 02/12/22 04/01/23 Akanksha Gibson DO [address] [place] [address] PCP - General FAMILY PRACTICE 04/02/23 [facility] [address] [place] [address] [place] [employer] Consultant CARDIOVASCULAR DISEASE 11/07/15 02/22/23 Pon[facility] [address] [place] [address] Consulting Physician INTERVENTIONAL CARDIOLOGY 02/23/23 Gulshan Gonzalez MD [address] [facility] [place] [address] Consulting Physician UROLOGY 02/23/23 Aly Hidalgo MD [address] [facility] [address] [place] [address] PULMONARY DISEASE 02/23/23 documented as of this encounter
--- OUTSIDE RECORDS SUMMARY | 2024-05-23 18:10 | XMS_ITS | Encounter Summary ---
Author Organization [facility] Address [address] [place] [address] Care Team Providers Care Smoking Pipe Liner Name Role Phone Ruben Huang DO Primary Care Provider [phone] Bebeto Vargas MD Unavailable [phone] Halina Solorzano MD Primary Care Provider [phone] Poncho Wu MD Unavailable [phone] Gulshan Gonzalez MD Unavailable [phone] Aly Hidalgo MD Unavailable [phone] Akanksha Gibson DO Primary Care Provider [phone] Encounter Details Date Type Department Care Team (Late st Contact Info) Description 11/18/2016 Abstract [facility] [address] [place] [address] Andi Myers MA Social History Tobacco Use Types Packs/Day Years Used Date Smoking Tobacco: Former Cigarettes Q uit: 1979 Smokeless Tobacco: Never Alcohol Use Standard Drinks/Week Comments No 0 (1 standard drink = 0.6 oz pur e alcohol) Sex and Gender Information Value Date Recorded Sex Assigned at Male 05/18/2024 3:35 PM SEPARATOR OPERATOR Legal Sex Male 11:50 PM CDT Gender Identity Not on file Sexual Orientation Not on file Occupation Industry Job Start Date Job End Date Works in an [employer] store Not on file Not on file Not on file documented as of this encounter Progress Notes * ISAAC Conley - 11/11/2017 11:19 AM CDT Has tried at least 2 statins in the past. Will discuss retrying medications at [facility] documented in this encounter Plan of Treatment Upcoming Encounters Date Type Department Care Team (Late st Contact Info) Description 08/21/2024 1:15 PM CDT Office Visit [facility] [place] [address] Poncho Wu MD Three [facility]. [address] [place], [place] [address] 11/23/2024 10:15 AM CDT Office Visit [facility] [address] [facility] [address], [address] [place], [place] [address] Lela García PA [address] [place], [place] [address] documented as of this encounter Procedures Procedure Name Priority Date/Time Associated Diagnosis Comments BASIC METABOLIC PANEL Routine 03/03/2019 CBC (OUTSIDE LAB) Routine 01/05/2019 COMPREHENSIVE METABOLIC PANEL Routine 01/05/2019 LIPID PANEL Routine 01/05/2019 CBC (OUTSIDE LAB) Routine 11/10/2017 BASIC METABOLIC PANEL Routine 11/10/2017 LIPID PANEL Routine 11/10/2017 BASIC METABOLIC PANEL Routine 01/22/2016 documented in this encounter Results * BASIC METABOLIC PANEL (03/03/2019) SODIUM S/P/B 143 135 - 146 POTASSIUM S/P/B 4.6 3.5 - 5.3 CO2 32 20 - 32 CHLORIDE S/P/B 103 98 - 110 GLUCOSE 96 65 - 99 mg/dL CALCIUM S/P/B 9.7 8.6 - 10.3 BUN 20 7 - 25 CREATININE S/P/B 0.94 0.7 - 1.3 EGFR AFR. AMER. 89 >=60 EGFR NON-AFR. AMER. 77 <=90 03/03/2019 us Doc [facility] Abstract LABORATORY Final Result * CBC (OUTSIDE LAB) (01/05/2019) Pathologist [facility] WBC 6.1 HGB 16.8 HCT 49.6 PLT 257 01/05/2019 us Doc [facility] Abstract LAB-OUTSIDE/ABSTRACTED Final Result * COMPREHENSIVE METABOLIC PANEL (01/05/2019) SODIUM S/P/B 140 POTASSIUM S/P/B 4.5 CO2 33 CHLORIDE S/P/B 102 GLUCOSE 107 mg/dL CALCIUM S/P/B 9.7 BUN 19 CREATININE S/P/B 0.94 0.7 - 1.3 EGFR AFR. AMER. 89 EGFR NON-AFR. AMER. 77 <=90 ALKALINE PHOSPHATASE S/P/B 65 ALT 17 AST 17 BILIRUBIN TOTAL S/P/B 0.7 ALBUMIN S/P/B 4.5 3.5 - 5.0 TOTAL PROTEIN S/P/B 6.6 GLOBULIN 2.1 01/05/2019 us Doc [facility] Abstract LABORATORY Edited Resul t - Final * LIPID PANEL (01/05/2019) CHOLESTEROL 193 HDL 58 TRIGLYCERIDES 136 NON HDL CHOLESTEROL 135 LDL (CALCULATED) 110 01/05/2019 us Doc [facility] Abstract LABORATORY Final Result * CBC (OUTSIDE LAB) (11/10/2017) WBC 5.5 HGB 16.3 HCT 48.7 PLT 262 11/10/2017 us Doc [facility] Abstract LAB-OUTSIDE/ABSTRACTED Final Result * BASIC METABOLIC PANEL (11/10/2017) SODIUM S/P/B 143 POTASSIUM S/P/B 5.0 CO2 30 CHLORIDE S/P/B 106 GLUCOSE 105 mg/dL CALCIUM S/P/B 9.5 BUN 27 CREATININE S/P/B 0.88 0.7 - 1.3 EGFR AFR. AMER. 95 EGFR NON-AFR. AMER. 82 <=90 11/10/2017 us Doc [facility] Abstract LABORATORY Final Result * LIPID PANEL (11/10/2017) CHOLESTEROL 207 HDL 67 TRIGLYCERIDES 84 NON HDL CHOLESTEROL 140 LDL (CALCULATED) 122 11/10/2017 us Doc [facility] Abstract LABORATORY Final Result * BASIC METABOLIC PANEL (01/22/2016) SODIUM S/P/B 140 POTASSIUM S/P/B 4.9 CO2 31 CHLORIDE S/P/B 99 GLUCOSE 113 mg/dL CALCIUM S/P/B 9.4 BUN 18 CREATININE S/P/B 0.8 0.7 - 1.3 EGFR NON-AFR. AMER. >90 <=90 01/22/2016 us Doc [facility] Abstract LABORATORY Final Result documented in this encounter Visit Diagnoses Not on filedocumented in this encounter Additional Health Concerns Infection Onset Date Last Indicated Resolved Time COVID-19 Rule Out 02/05/2022 02/05/2022 02/05/2022 9:22 AM SEPARATOR OPERATOR COVID-19 Rule Out 03/31/2023 03/31/2023 03/31/2023 9:59 PM SEPARATOR OPERATOR COVID-19 Rule Out 01/26/2024 01/26/2024 01/26/2024 2:10 PM SEPARATOR OPERATOR documented as of this encounter Care Teams Smoking Pipe Liner Relationship Specialty Start Date End Date Ruben Huang DO PCP - General FAMILY PRACTICE 11/07/15 02/11/22 Halina Solorzano MD [address] [place] [address] PCP - General INTERNAL MEDICINE 02/12/22 04/01/23 Akanksha Gibson DO [address] [place] [address] PCP - General FAMILY PRACTICE 04/02/23 Bebeto Vargas MD Three [facility]. [address] [place] [address] Kyburz Handle Turner CARDIOVASCULAR DISEASE 11/07/15 02/22/23 Poncho Wu MD Three [facility]. [address] [place] [address] Consulting Physician INTERVENTIONAL CARDIOLOGY 02/23/23 Gulshan Gonzalez MD [address] [facility] [place] [address] Consulting Physician UROLOGY 02/23/23 Aly Hidalgo MD [address] [place] [address] PULMONARY DISEASE 02/23/23 documented as of this encounter
--- OUTSIDE RECORDS SUMMARY | 2024-05-23 18:10 | XMS_ITS | Encounter Summary ---
Author Organization [facility] Address [address] [place] [address] Care Team Providers Care Anesthesiologist Physician Name Role Phone Bebeto Vargas MD Unavailable [phone] Halina Solorzano MD Primary Care Provider [phone] Poncho Wu MD Unavailable [phone] Gulshan Gonzalez MD Unavailable [phone] Aly Hidalgo MD Unavailable [phone] Akanksha Gibson DO Primary Care Provider [phone] Encounter Details Date Type Department Care Team (Late st Contact Info) Description 03/24/2022 Abstract [facility] [address] Andi Myers MA Social History Tobacco Use Types Packs/Day Years Used Date Smoking Tobacco: Former Cigarettes Q uit: 1979 Smokeless Tobacco: Never Alcohol Use Standard Drinks/Week Comments No 0 (1 standard drink = 0.6 oz pur e alcohol) Sex and Gender Information Value Date Recorded Sex Assigned at Male 05/18/2024 3:35 PM SCALLOP CUTTER MACHINE Legal Sex Male 11:50 PM CDT Gender [...] suspected to have Coronavirus/COVID-19? No / Unsure 03/22/2022 3:30 PM SCALLOP CUTTER MACHINE documented as of this encounter Functional Status * RETIRED Are you deaf or do you have serious difficulty hearing Answer Date of Assessment Author Status Yes 02/05/2022 1:44 PM SCALLOP CUTTER MACHINE Activ e * RETIRED Are you blind or do you have serious difficulty seeing, even when wearing glasses? Answer Date of Assessment Author Status No 02/05/2022 1:44 PM SCALLOP CUTTER MACHINE Activ e * Do you have serious difficulty walking or climbing stairs? Answer Date of Assessment Author Status No 02/05/2022 1:44 PM SCALLOP CUTTER MACHINE Madeline Jacques R N Active * Do you have difficulty dressing or bathing? Answer Date of Assessment Author Status No 02/05/2022 1:44 PM SCALLOP CUTTER MACHINE Madeline Jacques R N Active * Because of a physical, mental, or emotional condition, do you have difficulty doing errands alone such as visiting a doctor's office or shopping? Answer Date of Assessment Author Status No 02/05/2022 1:44 PM SCALLOP CUTTER MACHINE Madeline Jacques R N Active documented as of this encounter Mental Status * Because of a physical, mental, or emotional condition, do you have serious difficulty concentrating, remembering, or making decisions? Answer Entry Date Author Status No 02/05/2022 1:44 PM SCALLOP CUTTER MACHINE Madeline Jacques R N Active documented in this encounter Plan of Treatment Upcoming Encounters Date Type Department Care Team (Late st Contact Info) Description 08/21/2024 1:15 PM CDT Office Visit [facility] [address] [place], [place] [id number] Poncho Wu MD [facility]. [facility] [address] [place] [address] 11/23/2024 10:15 AM CDT Office Visit [facility] [address] [place] [address] Lela García PA [address] [facility] [place] [address] documented as of this encounter Goals Goal Patient Goal Type Associated Problems Recent Progress Patient-Stated? Author Patient will return to prior living situation and remain independent in ADLs upon discharge from hospital Lifestyle Bianca Velasquez RN documented as of this encounter Procedures Procedure Name Priority Date/Time Associated Diagnosis Comments BASIC METABOLIC PANEL Routine 12/22/2022 CBC (OUTSIDE LAB) Routine 09/07/2022 THYROID STIM HORMONE TSH Routine 09/07/2022 BASIC METABOLIC PANEL Routine 05/25/2022 BNP Routine 05/20/2022 LIPID PANEL Routine 03/30/2022 ALT/SGPT Routine 03/30/2022 BNP Routine 03/23/2022 BNP Routine 03/23/2022 documented in this encounter Results * BASIC METABOLIC PANEL (12/22/2022) SODIUM S/P/B 138 POTASSIUM S/P/B 4.7 CO2 30 CHLORIDE S/P/B 101 GLUCOSE 138 mg/dL CALCIUM S/P/B 9.4 BUN 27 CREATININE S/P/B 0.99 0.7 - 1.3 EGFR NON-AFR. AMER. 76 <=90 12/22/2022 us Default History Genericprovider LABORATORY Final Result * THYROID STIM HORMONE, TSH (09/07/2022) TSH 1.67 09/07/2022 Default History Genericprovider LABORATORY Edited Result - Final * CBC (OUTSIDE LAB) (09/07/2022) Pathologist [facility] WBC 6.3 HGB 12.8 HCT 40.1 PLT 153 09/07/2022 [facility] History Genericprovider LAB-OUTSIDE/ABST RACTED Final Result * BASIC METABOLIC PANEL (05/25/2022) Pathologist [facility] SODIUM S/P/B 141 POTASSIUM S/P/B 4.3 CO2 31 CHLORIDE S/P/B 98 GLUCOSE 93 mg/dL CALCIUM S/P/B 9.8 BUN 26 CREATININE S/P/B 0.91 0.7 - 1.3 EGFR NON-AFR. AMER. 84 <=90 05/25/2022 [facility] History Genericprovider LABORATORY Final Result * BNP (05/20/2022) B TYPE NATRIURETIC PEPTIDE 497 05/20/2022 [facility] Genericprovider LABORATORY Final Result * ALT/SGPT (03/30/2022) Pathologist [facility] ALT 35 03/30/2022 Default History Genericprovider LABORATORY Final Result * LIPID PANEL (03/30/2022) Pathologist [facility] CHOLESTEROL 148 HDL 46 TRIGLYCERIDES 86 LDL (CALCULATED) 85 03/30/2022 Default History Genericprovider LABORATORY Edited Result - Final * BNP (03/23/2022) Pathologist [facility] B TYPE NATRIURETIC PEPTIDE 404 03/23/2022 us Default History Genericprovider LABORATORY Final Result * BNP (03/23/2022) B TYPE NATRIURETIC PEPTIDE 404 03/23/2022 us Default History Genericprovider LABORATORY Final Result documented in this encounter Visit Diagnoses Not on filedocumented in this encounter Additional Health Concerns Infection Onset Date Last Indicated Resolved Time COVID-19 Rule Out 03/31/2023 03/31/2023 03/31/2023 9:59 PM SCALLOP CUTTER MACHINE COVID-19 Rule Out 01/26/2024 01/26/2024 01/26/2024 2:10 PM SCALLOP CUTTER MACHINE documented as of this encounter Care Teams Anesthesiologist Physician Relationship Specialty Start Date End Date Halina Solorzano MD [address] [place] [id number] PCP - General INTERNAL MEDICINE 02/12/22 04/01/23 Akanksha Gibson DO [address] [place] [address] PCP - General FAMILY PRACTICE 04/02/23 Bebeto Vargas MD Three [facility]. [address] [place], [place] [id number] [place] Fag[employer] Machine Operator CARDIOVASCULAR DISEASE 11/07/15 02/22/23 Poncho Wu MD [facility] [address] [place], [place] [id number] Consulting Physician INTERVENTIONAL CARDIOLOGY 02/23/23 Gulshan Gonzalez MD [address] [facility] [place] [address] Consulting Physician UROLOGY 02/23/23 Aly Hidalgo MD [address] [place] [place] [address] PULMONARY DISEASE 02/23/23 documented as of this encounter
--- OUTSIDE RECORDS SUMMARY | 2024-05-23 18:10 | XMS_ITS | Encounter Summary ---
Author Organization [facility] Address [address] [place] [address] Care Team Providers Care House Mover Supervisor Name Role Phone Ruben Huang DO Primary Care Provider [phone] Bebeto Vargas MD Unavailable [phone] Halina Solorzano MD Primary Care Provider [phone] Poncho Wu MD Unavailable [phone] Gulshan Gonzalez MD Unavailable [phone] Aly Hidalgo MD Unavailable [phone] Akanksha Gibson DO Primary Care Provider Encounter Details Date Type Department Care Team (Late st Contact Info) Description 08/07/2021 Abstract [facility] [address] Andi Myers MA Social History Tobacco Use Types Packs/Day Years Used Date Smoking Tobacco: Former Cigarettes Q uit: 1979 Smokeless Tobacco: Never Alcohol Use Standard Drinks/Week Comments No 0 (1 standard drink = 0.6 oz pur e alcohol) Sex and Gender Information Value Date Recorded Sex Assigned at Male 05/18/2024 3:35 PM TRUCK RAILROAD AND BUS MOTOR MECHANIC Legal Sex Male 11:50 PM CDT Gender [...] suspected to have Coronavirus/COVID-19? No / Unsure 08/06/2021 11:39 AM CDT documented as of this encounter Plan of Treatment Upcoming Encounters Date Type Department Care Team (Late st Contact Info) Description 08/21/2024 1:15 PM CDT Office Visit [facility], [address] [place] [address] Poncho Wu MD Three [facility]. [address] [place], [place] [address] 11/23/2024 10:15 AM CDT Office Visit [facility], [address] [place], [place] [address] Lela García PA [address] [facility] [address] [place], [place] [id number] documented as of this encounter Procedures Procedure Name Priority Date/Time Associated Diagnosis Comments CBC (OUTSIDE LAB) Routine 07/14/2021 FREE T3 Routine 07/14/2021 COMPREHENSIVE METABOLIC PANEL Routine 07/14/2021 LIPID PANEL Routine 07/14/2021 THYROXINE, FREE (FT4) Routine 07/14/2021 THYROID STIM HORMONE TSH Routine 07/14/2021 documented in this encounter Results * LIPID PANEL (07/14/2021) CHOLESTEROL 185 HDL 47 TRIGLYCERIDES 172 NON HDL CHOLESTEROL 138 LDL (CALCULATED) 109 LDL-P (LDL PARTICLE NUMBER) CONVERSION 1,566 1,138 - 1,409 LDL SMALL 285 142 - 219 LDL MEDIUM 345 215 - 301 HDL LARGE 5,387 5,353 - 6,729 LDL PATTERN A LDL PEAK SIZE 218.1 217.4 - 222.9 APOLIPOPROTEIN B 109 90 - 119 LIPOPROTEIN (A) 232 75 - 125 CRP HIGH SENSITIVITY 0.9 1.0 - 3.0 07/14/2021 us Doc [facility] Abstract LABORATORY Final Result * CBC (OUTSIDE LAB) (07/14/2021) Pathologist [facility] WBC 4.2 HGB 15.5 HCT 47.7 PLT 229 07/14/2021 us Doc [facility] Abstract LAB-OUTSIDE/ABSTRACTED Final Result * FREE T3 (07/14/2021) Pathologist [facility] FREE T3 2.7 07/14/2021 us Doc [facility] Abstract LABORATORY Final Result * THYROXINE, FREE (FT4) (07/14/2021) Pathologist [facility] FREE T4 1.4 07/14/2021 us Doc [facility] Abstract LABORATORY Final Result * THYROID STIM HORMONE, TSH (07/14/2021) Pathologist [facility] TSH 1.64 07/14/2021 us Doc [facility] Abstract LABORATORY Final Result * (ABNORMAL) COMPREHENSIVE METABOLIC PANEL (07/14/2021) Pathologist [facility] SODIUM S/P/B 141 POTASSIUM S/P/B 5.1 CO2 31 CHLORIDE S/P/B 104 GLUCOSE 104 mg/dL CALCIUM S/P/B 9.2 BUN 13 CREATININE S/P/B 0.90 0.7 - 1.3 EGFR AFR. AMER. 92(A) <=90 EGFR NON-AFR. AMER. 79 <=90 ALKALINE PHOSPHATASE S/P/B 70 ALT 17 AST 20 BILIRUBIN TOTAL S/P/B 0.6 ALBUMIN S/P/B 4.3 3.5 - 5.0 TOTAL PROTEIN S/P/B 6.3 GLOBULIN 2.0 07/14/2021 us Doc [facility] Abstract LABORATORY Final Result documented in this encounter Visit Diagnoses Not on filedocumented in this encounter Additional Health Concerns Infection Onset Date Last Indicated Resolved Time COVID-19 Rule Out 02/05/2022 02/05/2022 02/05/2022 9:22 AM TRUCK RAILROAD AND BUS MOTOR MECHANIC COVID-19 Rule Out 03/31/2023 03/31/2023 03/31/2023 9:59 PM TRUCK RAILROAD AND BUS MOTOR MECHANIC COVID-19 Rule Out 01/26/2024 01/26/2024 01/26/2024 2:10 PM TRUCK RAILROAD AND BUS MOTOR MECHANIC documented as of this encounter Care Teams House Mover Supervisor Relationship Specialty Start Date End Date Ruben Huang DO PCP - General FAMILY PRACTICE 11/07/15 02/11/22 Halina Solorzano MD [address] [place] [address] PCP - General INTERNAL MEDICINE 02/12/22 04/01/23 Akanksha Gibson DO [address] [place] [address] PCP - General FAMILY PRACTICE 04/02/23 Bebeto Vargas MD [address] [address] [place] [employer] Hunter CARDIOVASCULAR DISEASE 11/07/15 02/22/23 Poncho Wu MD Three [facility]. [address] [place] [address] Consulting Physician INTERVENTIONAL CARDIOLOGY 02/23/23 Gulshan Gonzalez MD 3 [facility] [place] [address] Consulting Physician UROLOGY 02/23/23 Aly Hidalgo MD [address] [facility] [address] [place] [address] PULMONARY DISEASE 02/23/23 documented as of this encounter
--- OUTSIDE RECORDS SUMMARY | 2024-05-23 18:10 | XMS_ITS | Referral Summary ---
Author Organization [facility] Address [address] [place] [address] Care Team Providers Care Incident Response Lead Name Role Phone Madi Wills OD Unavailable [phone] Akanksha Gibson DO Primary Care Provider Source Comments [facility],non-owned Affiliates and Associated Physician Practices is amultiple site organization consisting of ambulatory clinics and hospital sitesin [place], [place], [place] and [place]. This disclosure is being madepursuant to the Care Everywhere program and may not contain all information available regarding this patient. Last updated 17.[facility] Allergies Active Allergy Reactions Criticality Noted Date Comments [place] Anaphylaxis,Other High 08/06/2021 Rosuvastatin Myalgias Medium 11/11/2015 myalgia Simvastatin Myalgias Medium 11/11/2015 myalgia Medications * Be aware that medications may not be up to date on this document. Alwaysverify current medications with the patient. Medication Sig Dispensed Refills Start Date End Date Status aspirin (ASPIRIN) 81 MG chew tablet Take 1 (one) tablet by mouth Twice Daily, Three Times a Week Active coenzyme Q10 100 MG capsule Take 100 (one hundred) mg by mouth once daily Active apixaban (Eliquis) 5 MG tablet Eliquis 5 mg tablet 12/02/2021 Activ e vitamin D3 (Cholecalciferol) 125 MCG (5000 UT) capsule Take 1 (one) capsule by mouth Active diclofenac sodium (Voltaren) 1 % gel Apply 2 (two) g to affected area 4 times daily as needed 10/09/2021 Active furosemide (Lasix) 40 MG tablet furosemide 40 mg tablet 02/09/2022 Active metoprolol succinate XL 24hr (Toprol XL) 25 MG tablet metoprolol succinate ER 25 mg tablet,extended release 24 hr TAKE 1 TABLET BY MOUTH DAILY 01/14/2022 Active Misc Natural Products (Turmeric Curcumin) Take 1 capsule by mouth once daily Active potassium chloride ER (K-TAB) 20 MEQ tablet TAKE 1 TABLET BY MOUTH DAILY WITH FUROSEMIDE 02/09/2022 Active silodosin (Rapaflo) 8 MG capsule Take 1 (one) capsule by mouth once daily 07/18/2021 Active Active Problems Problem Noted Date Diagnosed Date Pain due to internal orthope dic prosthetic devices, implants and grafts, initial encounter 02/27/2016 Olecranon bursitis of left elbow 07/17/2015 Syncope and collapse 05/23/2015 Other postprocedural complic ations and disorders of genitourinary system 05/23/2015 Other retention of urine 05/23/2015 Closed fracture of sacrum 05/23/2015 Overview (06/14/2017): RIGHT sacral ala Disorder of brain 05/23/2015 Contusion of one lung 05/23/2015 Calculus of kidney 05/23/2015 Other disorders of lung 05/23/2015 Overview (06/14/2017): LEFT 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, 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 Closed fracture of left acetabulum 05/23/2015 Pneumothorax 05/23/2015 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 Overview (06/14/2017): AVR in 2009 Pulmonary emphysema 05/23/2015 Acquired cyst of kidney 05/23/2015 Laceration of left kidney 05/23/2015 Overview (06/14/2017): Grade 3 Other nonspecific abnormal finding of lung field 05/23/2015 Overview (06/14/2017): BILATERAL Pleural effusion, not elsewhere classified 05/22 Multiple closed fractures of ribs 05/23/2015 Overview (06/14/2017): LEFT 3-7, 9-11 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 05/23/2015 Atherosclerosis 05/22/2015 Overview (06/14/2017): Carotid, coronary, aortic, & iliac Other specified fracture of unspecified pubis, initial encounter for closed fracture 05/22/2015 Overview (06/14/2017): LEFT inferior & superior Injury 05/18/2015 Immunizations Name Administration Dates Next Due TDAP (7yrs+) 05/18/2015 Social History Tobacco Use Types Packs/Day Years [...] Mass Index 21.21 09/22/2022 4:10 PM CDT Plan of Treatment Not on file Care Teams Incident Response Lead Relationship Specialty [place] [address] [place] [address] PCP - General Internal Medicine 01/06/24 Madi Wills, WOJCIECH [address] [place] [address] Neuro Ophthalmology 07/27/17
--- OUTSIDE RECORDS SUMMARY | 2024-05-23 18:10 | XMS_ITS | Clinical Summary ---
Author Organization [facility] Address [address] [place] [address] Care Team Providers Care Land Reclamation Specialist Name Role Phone Madi Wills OD Unavailable [phone] Akanksha Gibson DO Primary Care Provider [phone] Source Comments [facility],non-owned Affiliates and Associated Physician Practices is amultiple site organization consisting of ambulatory clinics and hospital sitesin [place], [place], [place] and [place]. This disclosure is being madepursuant to the Care Everywhere program and may not contain all information available regarding this patient. Last updated 17.[facility] [place] [employer] Allergies Active Allergy Reactions Criticality Noted Date [...] 09/22/2022 4:10 PM CDT Plan of Treatment Health Maintenance Due Date Last Done Comments PNEUMOCOCCAL VACCINE 50+ (1 of 2 - PCV) 1958 ZOSTER VACCINE (1 of 2) 1989 Respiratory Syncytial Virus (RSV) Vaccine Pt: or over 60 yrs (1 - 1-dose 75+ series) 2014 COVID-19 VACCINE ( - 2023-2 5 season) 2023 INFLUENZA VACCINE (#1) 2023 DEPRESSION SCREENING 03/15/2024 MEDICARE AWV CALENDAR YEAR 2024 DTAP/TDAP/TD VACCINES (2 - T d or Tdap) 05/17/2025 05/18/2015 HEPATITIS B VACCINE Aged Out No longe r eligible based on patient's age to complete this topic HIB VACCINE Aged Out No longer eligi ble based on patient's age to complete this topic HPV VACCINE Aged Out No longer eligi ble based on patient's age to complete this topic MENINGOCOCCAL (Group B) VACCINE Aged Out No longer eligible based on patient's age to complete this topic MENINGOCOCCAL VACCINE Aged Out No hilda kira eligible based on patient's age to complete this topic Care Teams Land Reclamation Specialist Relationship Specialty Start [place] [address] [address] [place] [address] PCP - General Internal Medicine 01/06/24 Madi Wills, WOJCIECH [address] [address] Neuro Ophthalmology 07/27/17
--- OUTSIDE RECORDS SUMMARY | 2024-05-23 18:10 | XMS_ITS | Encounter Summary ---
Author Organization [facility] Address [address] [place] [id number] Care Team Providers Care Business Job Titles Name Role Phone Ruben Huang DO Primary Care Provider [phone] Bebeto Vargas MD Unavailable [phone] Halina Solorzano MD Primary Care Provider [phone] Poncho Wu MD Unavailable [phone] Gulshan Gonzalez MD Unavailable [phone] Aly Hidalgo MD Unavailable [phone] Akanksha Gibson DO Primary Care Provider [phone] Encounter Details Date Type Department Care Team (Late st Contact Info) Description 09/04/2021 Hospital Orders Only [facility] [address] [place], [place] [id number] Ed Lang MD [facility]. [address] [place], [place] [id number] Social History Tobacco Use Types Packs/Day Years Used Date Smoking Tobacco: Former Cigarettes Q uit: 1978 Smokeless Tobacco: Never Alcohol Use Standard Drinks/Week Comments No 0 (1 standard drink = 0.6 oz pur e alcohol) Sex and Gender Information Value Date Recorded Sex Assigned at Male 05/18/2024 3:35 PM FIELD DIRECTOR Legal Sex Male 11:50 PM CDT Gender [...] suspected to have Coronavirus/COVID-19? No / Unsure 09/05/2021 6:28 AM CDT documented as of this encounter Plan of Treatment Upcoming Encounters Date Type Department Care Team (Late st Contact Info) Description 08/21/2024 1:15 PM CDT Office Visit [facility], [facility] [address] [place] [address] oPncho Wu MD [facility]. [facility] [address] [place] [address] 11/23/2024 10:15 AM CDT Office Visit [facility] [address] [place] [address] Lela García PA [address] [facility] [address] [place] [address] documented as of this encounter Visit Diagnoses Not on filedocumented in this encounter Additional Health Concerns Infection Onset Date Last Indicated Resolved Time COVID-19 Rule Out 02/05/2022 02/05/2022 02/05/2022 9:22 AM FIELD DIRECTOR COVID-19 Rule Out 03/31/2023 03/31/2023 03/31/2023 9:59 PM FIELD DIRECTOR COVID-19 Rule Out 01/26/2024 01/26/2024 01/26/2024 2:10 PM FIELD DIRECTOR documented as of this encounter Care Teams Business Job Titles Relationship Specialty Start Date End Date Ruben Huang DO PCP - General FAMILY PRACTICE 11/07/15 02/11/22 Halina Solorzano MD [address] [place] [address] PCP - General INTERNAL MEDICINE 02/12/22 04/01/23 Akanksha Gibson DO [address] [place] [address] PCP - General FAMILY PRACTICE 04/02/23 [facility] [address] [place] [address] [place] [employer] CARDIOVASCULAR DISEASE 11/07/15 02/22/23 [facility] [address] [place] [address] Consulting Physician INTERVENTIONAL CARDIOLOGY 02/23/23 Gulshan Gonzalez MD [address] [facility] [place] [address] Consulting Physician UROLOGY 02/23/23 Aly Hidalgo MD [address] [place] [address] PULMONARY DISEASE 02/23/23 documented as of this encounter
--- OUTSIDE RECORDS SUMMARY | 2024-05-23 18:10 | XMS_ITS | Clinical Summary ---
Author Organization [facility] Care Team Providers Care Bale Piler Name Role Phone Unavailable Primary Care Provider Unavailabl e Social History Tobacco Use Types Packs/Day Years Used Date Smoking Tobacco: Never Assessed Sex and Gender Information Value Date Recorded Sex Assigned at Not on file Legal Sex Male 2:42 PM STORE STOCKER Gender Identity Not on file Sexual Orientation Not on file Plan of Treatment Health Maintenance Due Date Last Done Comments Hepatitis C Virus (HCV) Screening 1940 TdaP Immunization 1940 Pneumococcal Immunization (5 0+ years) (1 of 1 - PCV) 1989 Zoster Immunization (1 of 2) 1989 Respiratory Syncytial Virus (RSV) Immunization (Adult) (1 - 1-dose 75+ series) 2014 Influenza Immunization (#1) 2023 SARS-COV-2 Immunization ( - 2023- season) 2023 Hepatitis B Immunization Aged Out No longer eligible based on patient's age to complete this topic Meningococcal Immunization (ACWY) Aged Out No longer eligible based on patient's age to complete this topic Rotavirus Immunization Aged Out No lo nger eligible based on patient's age to complete this topic
--- OUTSIDE RECORDS SUMMARY | 2024-05-23 18:10 | XMS_ITS | Clinical Summary ---
Author Organization [facility] Address [facility] [place] [address] Care Team Providers [employer] Professional Name Role Phone Poncho Wu MD Unavailable [phone] Gulshan Gonzalez MD Unavailable [phone] Aly Hidalgo MD Unavailable [phone] Akanksha Gibson DO Primary Care Provider [phone] Allergies Active Allergy Reactions Criticality Noted Date Comments Milk (Cow) Anaphylaxis High 08/06/2021 Milk-Related Compounds Other (see comment) Low 06/24/2023 Runny nose, mucous build up Morphine Other (see comment) 01/18/2024 Confusion. drowsiness Statins Leg Pain,Other (see comment),Myalgias Medium 03/22/2022 Leg cramps Medications vitamin C (ASCORBIC ACID) 1000 MG tabletIndicatio ns:Mineral Deficiency Take 1 tablet (1,000 mg total) by mouth 3 (three) times daily with meals. Indications: Mineral Deficiency 016 Active aspirin 81 MG chewable tabletIndicatio ns:Prophylaxis Chew 1 tablet (81 mg total) by mouth 3 (three) times a week. Indications: Preventative Treatment On Mondays, Wednesdays, and Fridays Active Cholecalciferol (VITAMIN D3) 1000 units CapIndications: Mineral Deficiency Take 2,000 Units by mouth daily. Indications: Mineral Deficiency Active Multiple Vitamins-Minera ls (PRESERVISION AREDS 2 OR)Indications: Mineral Deficiency Take 1 tablet by mouth 2 (two) times a day. Indications: Mineral Deficiency Active Coenzyme Q10 (COQ10) 100 MG CapIndications: Enzyme Deficiency Take 1 capsule by mouth 2 (two) times a day. Indications: Enzyme Deficiency Active leuprolide, 6 month, (ELIGARD) 45 MG injectionIndica tions:Prostate cancer, assess treatment response Inject 45 mg into the skin every 6 (six) months. Indications: Prostate cancer, assess treatment response Active XTANDI 80 MG tablet Take 2 tablets (160 mg total) by mouth every evening. With supper Active melatonin 5 MG tablet Take 2 tablets (10 mg total) by mouth nightly at bedtime. Active acetaminophen (TYLENOL) 325 MG tabletIndicatio ns:Mild pain Take 2 tablets (650 mg total) by mouth every 4 (four) hours as needed for Pain. Indications: Mild pain 30 tablet Active spironolactone (ALDACTONE) 25 MG tabletIndicatio ns:CHF Take 0.5 tablets (12.5 mg total) by mouth daily. Indications: CHF 30 tablet Active polyethylene glycol (GLYCOLAX) packetIndicatio ns:as needed for constipation Take 240 mLs (17 g total) by mouth daily as needed for Constipation. Indications: as needed for constipation Dissolve powder in 240 mL water 30 each Active eplerenone (INSPRA) 25 MG tablet Take 1 tablet (25 mg total) by mouth daily. 30 tablet 5 Active furosemide (LASIX) 20 MG tablet Take 1 tablet (20 mg total) by mouth daily. Active gabapentin (NEURONTIN) 300 MG capsule Take 1 capsule (300 mg total) by mouth 3 (three) times daily as needed (pain). 2024 Discontinued clopidogrel (PLAVIX) 75 MG tablet Take 1 tablet (75 mg total) by mouth daily. 180 tablet 2024 furosemide (LASIX) 40 MG tabletIndicatio ns:CHF Take 1 tablet (40 mg total) by mouth daily. Indications: CHF 30 tablet 2024 Discontinued metoprolol succinate ER (TOPROL XL) 12.5 mg TABLET SR 24 HR 24 hr tabletIndicatio ns:Hypertension ,CHF Take 1 split tab (12.5 mg total) by mouth nightly. Indications: High Blood Pressure, CHF 30 tablet 024 2024 Discontinued(O ther- Please enter comment in Notes field) clopidogrel (PLAVIX) 75 MG tablet Take 1 tablet (75 mg total) by mouth daily. 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 His last echo shows a well-functioning bioprosthetic aortic valve. Continue antibiotic prophylaxis prior to dental procedures. He will need an echo 1 year from his TAVR. UTI (urinary tract infection) 07/12/2023 Acute cystitis without hematuria 04/17/2023 Overview (04/21/2023): Last Assessment & Plan: Per notes from [facility]' this was treated in house and he was sent here w a rx for amox 500mg tid x 3 days to complete treatment. We will cont this through apr 19 Bone lesion 04/16/2023 Overview (04/21/2023): Last Assessment & Plan: Bone lesions were noted at [facility] on both CT and MRI; The plan is for him to follow up w his post SNF discharge. understands that this may represent metastatic cancer. Generalized weakness 04/16/2023 Hydronephrosis 04/16/2023 Overview (04/21/2023): Last Assessment & Plan: Stable, he will follow up w ; it appears from the [facility] notes that given stable renal function in patient intervention not warranted. I have ordered follow up lab here. Indwelling Sosa catheter present 04/16/2023 Meningioma ([facility]) 04/16/2023 Overview (04/21/2023): Last Assessment & Plan: This is chronic, stable since (at least) 2015. He endorses the understanding that this should be followed by his out pt team Urine retention 04/16/2023 Overview (04/21/2023): Last Assessment & Plan: He has a sosa catheter. His completes the hx. Though he reports SC at home, she reports that this was about a year ago. He has an indwelling sosa cath and this will be continued for his 2w follow up office visit. The admitting MD at [facility]' noted that he had been SC'ing for 2-3 wks. Also noted, given diff w SC, can retain sosa until seeing outpatient. Closed compression fracture of body of L1 vertebra ([facility]) 04/12/2023 Congestive heart failure (CHF) ([facility]) 04/01/2023 Severe aortic valve stenosis 03/03/2023 Aortic prosthetic valve regurgitation, subsequen t encounter 01/25/2023 Assessment & Plan (07/30/2023 9:46 AM CDT): He is status post transcatheter aortic valve replacement. His 30-day echo shows a well-functioning bioprosthetic aortic valve. We will repeat an echocardiogram in 1 year. Continue antibiotic prophylaxis prior to dental procedures. Assessment & Plan (05/25/2023 1:20 PM CDT): He is status post transcatheter aortic valve replacement. His 30-day echo shows a well-functioning bioprosthetic aortic valve. We will repeat an echocardiogram in 1 year. Continue antibiotic prophylaxis prior to dental procedures. Assessment & Plan (01/25/2023 4:39 PM BUTADIENE CONVERTER HELPER): I have reviewed his transthoracic and transesophageal echocardiograms. I believe that he has severe prosthetic valve regurgitation that is intravalvular as opposed to paravalvular. I discussed with the patient and his valve in valve transcatheter aortic valve replacement. I discussed potential risks including possible coronary obstruction depending on coronary heights. Continue diuretics. I did discuss the procedure of transcatheter aortic valve replacement to the patient. I explained the procedure in detail including transfemoral access with placement of a balloon mounted valve inside the existing aortic valve. I explained the risks and benefits that include but are not limited to: bleeding, infection, vascular complication (10%), cerebrovascular accident (3 to 5%), permanent pacemaker placement (10%), myocardial infarction (1 to 2%), aortic root rupture (1 2%), valve embolization (1-2%) and even (1 to 2%). I did explain to the patient that if we were to proceed with transcatheter aortic valve replacement, we would have to proceed with the TAVR work-up that includes cardiac catheterization, CT scan and surgical evaluation. Pleural effusion 01/25/2023 Assessment & Plan (01/25/2023 4:41 PM BUTADIENE CONVERTER HELPER): He has a decent sized large left-sided pleural effusion that was seen on CT imaging from 2021. He has seen pulmonary in consultation. Depending on his CTA TAVR results, he may require thoracentesis for optimization prior to transcatheter aortic valve replacement AMS (altered mental status) 10/18/2022 History of cancer 03/20/2022 Overview (03/30/2022): prostate cancer Malignant tumor of prostate ([facility]) Overview (04/21/2023): Dx July 2020 Dx July 2020 Last Assessment & Plan: Follow up w post SNF discharge Chronic diastolic congestive heart failure ([facility]) 02/06/2022 Assessment & Plan (07/30/2023 9:57 AM CDT): Most of his heart failure issues stemmed from prosthetic aortic valve regurgitation. Acute respiratory failure ([facility]) 01/14 Peripheral venous insufficiency 12/26/2021 S/P AVR (aortic valve replacement) 11/18/2021 Persistent atrial fibrillation ([facility]) 11/18/2021 Assessment & Plan (07/30/2023 9:46 AM CDT): Left atrial appendage closure is a good option for him given his frequent falls. His [id number] score is 8. His HASBLED score is 2. I had a lengthy discussion with the patient explaining the role of atrial fibrillation and thromboembolic risk. We specifically discussed the role of the left atrial appendage as a source for thromboembolic processes. Risks for the left atrial appendage clsoure procedure include but are not limited to: bleeding, vascular damage, cardiac perforation requiring pericardiocentesis and possible surgical sternotomy by cardiothoracic surgery, cerebrovascular accident, myocardial infarction, and even rarely . Per published data: 6.5% procedure/device related adverse events per PROTECT AF, 3.0% procedure/device related event in the CAP registry, and in the PREVAIL trial the complication rate was 2.2%. A recent real world registry data shows approximately the similar results as PREVAIL trial. The patient understands that dual antiplatelet therapy will require post left atrial appendage closure. We can try to make an exception and is off label for single antiplatelet therapy. We will repeat a KEY 6 weeks post left atrial appendage implantation. Assessment & Plan (05/25/2023 1:21 PM CDT): Continue apixaban and metoprolol. Assessment & Plan (01/25/2023 4:39 PM BUTADIENE CONVERTER HELPER): Continue apixaban and metoprolol. 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 There is also obstructive disease in the [place] circumflex artery, but the vessel is small. Recommend continue medical management of coronary artery disease. Continue metoprolol. He is currently not on statin therapy and has statins listed as an allergy Assessment & Plan (01/25/2023 4:39 PM BUTADIENE CONVERTER HELPER): I have reviewed his cardiac catheterization from August 2021 that shows a chronically occluded right coronary artery that fills via collaterals. There is also obstructive disease in the [place] circumflex artery, but the vessel is small. Recommend continue medical management of coronary artery disease. I do not think that a repeat cardiac catheterization is needed at this time. Continue metoprolol. He is currently not on statin therapy and has statins listed as an allergy Assessment & Plan (01/07/2021 2:20 PM CDT): CAD s/p CABG - No new ischemic signs. encouraged him to continue ASA given history of CABG. continuing with coreg - Intolerance of statin therapy - Reviewed lipid panel with controlled LDL of 103 Hyperlipidemia Assessment & Plan (01/07/2021 1:51 PM CDT): Statin therapy is well tolerated without any reports of Statin-associated muscle symptoms (OMAR). Target goal of LDL < 70 Essential hypertension Assessment & Plan (05/25/2023 1:22 PM CDT): Blood pressure elevated in office. Encouraged home monitoring. Continue eplerenone and metoprolol. Assessment & Plan (01/07/2021 1:51 PM CDT): Blood pressure is well controlled with no changes in regimen at this time Encouraged to continue to monitor at home and log and call office with any concerns in future. Aortic stenosis Assessment & Plan (01/07/2021 2:22 PM CDT): - Hx of AVR in 2007. Echo from last 12/2018 reveals well functioning aortic valve with mild periprosthetic regurgitation Repeat Echo in 1 year prior to next appt. Encounters Date Type Department Care Team Description 05/18/2024 3:30 PM BUTADIENE CONVERTER HELPER Office Visit [facility] [address] [place] [address] Len Madison MD Atrial Fibrillation (Follow up) 05/18/2024 Travel 04/11/2024 Telephone [facility] [address] [place] [address] Poncho Wu MD Appointment Request 03/01/2024 Orders Only [facility] [address] [place] [address] Lissette Chen PA 02/25/2024 2:10 PM BUTADIENE CONVERTER HELPER - 02/25/2024 11:59 PM BUTADIENE CONVERTER HELPER Hospital Encounter [facility] [place] [address] Aman Kessler DO Discharge Disposition: Home or Self Care (Routine Discharge) 02/25/2024 Orders Only [facility] [place] [address] Aman Kessler DO from Last 3 Months Immunizations Name Administration Dates Next Due Tdap (Generic) 05/18/2015 Family History Medical History Relation Comments Positive for coronary artery disease. Other Relation Status Comments Other Social History Tobacco Use Types Packs/Day Years Used Date Smoking Tobacco: Former Cigarettes 2 03 04 [id number] Smokeless Tobacco: Never Alcohol Use Standard Drinks/Week Comments No 0 (1 standard drink = 0.6 oz pur e alcohol) OASIS D0700: Social Isolation Answer Da te Recorded Frequency of experiencing loneliness or isolatio n Never 05/28/2023 OASIS A1250: Transportation Answer Date Recorded Lack of Transportation (Medical) No 05/28/2023 Lack of Transportation (Non-Medical) No 05/28/2023 Patient Unable or Declines to Respond No 05/28/2023 OASIS B1300: Health Literacy Answer Angel e Recorded Frequency of needing help to read materials from doctor or pharmacy Never 05/28/2023 [facility] Utilities Answer Date Recorded In the past 12 months has th e [employer], gas, oil, or water [employer] threatened to shut off services in your home? No 01/17/2024 Humiliation, Afraid, Rape, and Kick questionnair e Answer Date Recorded Within the last year, have y ou been afraid of your partner or ex-partner? No 01/17/2024 Within the last year, have y ou been humiliated or emotionally abused in other ways by your partner or ex-partner? No Within the last year, have y ou been kicked, hit, slapped, or otherwise physically hurt by your partner or ex-partner? No 01/17/2024 Within the last year, have y ou been raped or forced to have any kind of sexual activity by your partner or ex-partner? No 01/17/2024 Overall Financial Resource Strain (CARDIA) Answe r Date Recorded How hard is it for you to pa y for the very basics like food, housing, medical care, and heating? Not hard at all 01/17/2024 Hunger Vital Sign Answer Date Recorded Within the past 12 months, y ou worried that your food would run out before you got the money to buy more. Never true 01/17/20 24 Within the past 12 months, t he food you bought just didn't last and you didn't have money to get more. Never true 01/17/2024 PRAPARE - Transportation Answer Date Re corded In the past 12 months, has l ack of transportation kept you from medical appointments or from getting medications? No 06/2023 In the past 12 months, has l ack of transportation kept you from meetings, work, or from getting things needed for daily living? No 01/17/2024 Housing Stability Vital Sign Answer Angel e Recorded In the last 12 months, was t here a time when you were not able to pay the mortgage or rent on time? No 04/12/2023 In the last 12 months, how many places have you lived? 1 04/12/2023 In the last 12 months, was t here a time when you did not have a steady place to sleep or slept in a fdc (including now)? No 04/12/2023 Housing Stability Vital Sign Answer Angel e Recorded In the last 12 months, was t here a time when you were not able to pay the mortgage or rent on time? No 01/17/2024 In the past 12 months, how m any times have you moved where you were living? 1 01/17/2024 At any time in the past 12 m [facility], were you homeless or living in a fdc (including now)? No 01/17/2024 Sex and Gender Information Value Date Recorded Sex Assigned at Male 05/18/2024 3:35 PM BUTADIENE CONVERTER HELPER Legal Sex Male 11:50 PM CDT Gender Identity Not on file Sexual Orientation Not on file Occupation Industry Job Start Date Job End Date Not on file Not on file Not on file Not on file Last Filed Vital Signs Vital Sign Reading Time Taken Comments Blood Pressure 108/62 05/18/2024 3:37 PM BUTADIENE CONVERTER HELPER Pulse 73 05/18/2024 3:37 PM BUTADIENE CONVERTER HELPER Temperature 36.9 C (98.4 F) 01/26/2024 7:16 PM BUTADIENE CONVERTER HELPER Respiratory Rate 22 01/26/2024 7:16 PM BUTADIENE CONVERTER HELPER Oxygen Saturation 97% 05/18/2024 3:37 PM BUTADIENE CONVERTER HELPER Inhaled Oxygen Concentration - - Weight 62.3 kg (137 lb 5.6 oz) 01/26/2024 3:39 A M BUTADIENE CONVERTER HELPER Height 180.3 cm (5' 11 ) 05/18/2024 3:37 PM BUTADIENE CONVERTER HELPER Body Mass Index 18.63 01/17/2024 4:41 AM BUTADIENE CONVERTER HELPER Plan of Treatment Upcoming Encounters Date Type Department Care Team (Late st Contact Info) Description 08/21/2024 1:15 PM CDT [facility] Visit [facility] [address] [place] [address] Poncho Wu MD Three [facility] [address] [place], [place] [address] 11/23/2024 10:15 AM CDT Office Visit [facility] [address] [place], [place] [id number] Lela García PA [address] [facility] [address] [place], [place] [id number] Health Maintenance Due Date Last Done Comments Pneumococcal Vaccine: 65+ Ye ars (1 of 2 - PCV) 1945 Zoster Vaccines (1 of 2) 1989 Annual Medicare Wellness Visit 2004 RSV Immunization or 60+ Years (1 - 1-dose 75+ series) 2014 COVID-19 Vaccine ( - 2023-2 5 season) 2023 Influenza Adult (#1) 2023 DTaP, Tdap and Td Vaccines ( 2 - Td or Tdap) 05/17/2025 05/18/2015 Meningococcal B Vaccine Aged Out No l onger eligible based on patient's age to complete this topic Meningococcal Vaccine Aged Out No hilda kira eligible based on patient's age to complete this topic RSV Immunizations Under 20 Months Aged Out No longer eligible based on patient's age to complete this topic Goals Goal Patient Goal Type Associated Problems Recent Progress Patient-Stated? Author Patient will return to prior living situation and remain independent in ADLs upon discharge from hospital Lifestyle No Bianca Pagan, RN Patient will return to prior living situation and remain independent in ADLs upon discharge from hospital Lifestyle No Jacy Oliver RN Safety Patient/family will have appropriate support at home upon discharge Lifestyle No Feliciano Cali, RN Medical Devices Implanted Type Area Commutator Presser Device Identifier Shelf Expiration Date Model / Serial / Lot Belinda Closure Device-11/09/19 24 Implanted:Qty: 1 on 11/09/2023 by Bridgette Velasco MD Closure Device Partigi 10/13/2027 / / [id number] Procedures Procedure Name Priority Date/Time Associated Diagnosis Comments HC URINALYSIS AUTO W/O MICRO Routine 02/25/2024 2:00 PM BUTADIENE CONVERTER HELPER Urinary tract infection, site not specified from Last 3 Months Results * (ABNORMAL) URINALYSIS (02/25/2024 2:00 PM BUTADIENE CONVERTER HELPER) SPECIMEN TYPE URINE, UNSPECIFIED 02/25/2024 2:13 PM BUTADIENE CONVERTER HELPER [facility] COLOR (U) YELLOW 02/25/2024 3:13 PM BUTADIENE CONVERTER HELPER [facility] TRANSPARENCY TURBID 02/25/2024 3:13 PM BUTADIENE CONVERTER HELPER [facility] SPECIFIC GRAVITY (U) 1.017 1.001 - 1.030 02/25/2024 3:13 PM BUTADIENE CONVERTER HELPER [facility] U PH 6.0 5.0 - 9.0 02/25/2024 3:13 PM BUTADIENE CONVERTER HELPER [facility] LEUKOCYTES (U) 500(A) NEGATIVE 02/25/2024 3:13 PM BUTADIENE CONVERTER HELPER [facility] NITRITES NEGATIVE NEGATIVE 02/25/2024 3:13 PM [facility] PROTEIN RANDOM (U) 70(H) <30 MG/DL 02/25/2024 3:13 PM BUTADIENE CONVERTER HELPER [facility] GLUCOSE (U) NORMAL NORMAL MG/DL 02/25/2024 3:13 PM BUTADIENE CONVERTER HELPER [facility] KETONES MG/DL (U) NEGATIVE NEGATIVE MG/DL 02/25/2024 3:13 PM [facility] UROBILINOGEN NORMAL NORMAL MG/DL 02/25/2024 3:13 PM [facility] BILIRUBIN (U) NEGATIVE NEGATIVE MG/DL 02/25/2024 3:13 PM BUTADIENE CONVERTER HELPER [facility] BLOOD (U) 2+(A) NEGATIVE 02/25/2024 3:13 PM BUTADIENE CONVERTER HELPER [facility] MUCUS RARE /LPF 02/25/2024 3:13 PM BUTADIENE CONVERTER HELPER [facility] WBC/HPF >100(H) <6 /HPF 02/25/2024 3:13 PM BUTADIENE CONVERTER HELPER [facility] WBC CLUMPS PRESENT 02/25/2024 3:13 PM BUTADIENE CONVERTER HELPER [facility] RBC/HPF >100(H) <6 /HPF 02/25/2024 3:13 PM BUTADIENE CONVERTER HELPER [facility] CA OXALATE CRYSTALS RARE /HPF 02/25/2024 3:13 PM BUTADIENE CONVERTER HELPER [facility] URINE SPECIMEN / Unknown 02/25/2024 2:00 PM BUTADIENE CONVERTER HELPER Aman Kessler DO URINE ORDERABLES Final Result [facility] [address] [place] [address], from Last 3 Months Insurance [facility] Advance Directives Documents on File Type Date Recorded Patient Drawing Instructor Expl anation Advance Directives and Livin g Will 02/08/2024 10:54 AM * Full Code (Latest Code Status on File) Date Activated Date Inactivated Comments 01/17/2024 6:26 AM 01/26/2024 10:14 PM * Full Code Date Activated Date Inactivated Comments 07/12/2023 10:47 PM 07/14/2023 3:57 PM * Full Code Date Activated Date Inactivated Comments 04/30/2023 12:38 PM 07/12/2023 6:26 PM * Full Code Date Activated Date Inactivated Comments 04/12/2023 9:24 AM 04/15/2023 3:06 PM * Full Code Date Activated Date Inactivated Comments 04/09/2023 4:30 PM 04/12/2023 6:03 AM [employer] Professional Relationship Specialty Start Date End Date Akanksha Gibson DO [address] [place] [phone] PCP - General FAMILY PRACTICE 04/02/23 Poncho Wu MD Three [facility] [address] [place] [address] Consulting Physician INTERVENTIONAL CARDIOLOGY 02/23/23 Gulshan Gonzalez MD [address] [place] [address] Consulting Physician UROLOGY 02/23/23 Aly Hidalgo MD [address] [address] PULMONARY DISEASE 02/23/23
--- OUTSIDE RECORDS SUMMARY | 2024-05-23 18:10 | XMS_ITS | Encounter Summary ---
Author Organization [facility] Health Address [address] [place] [address] Care Team Providers Care Rubber Cutter Name Role Phone ElmaMadi OD Unavailable [phone] Halina Solorzano MD Primary Care Provider Akanksha Gibson DO Primary Care Provider [phone] Reason for Visit * Reason Onset Date Comments Reschedule Appointment 02/01/2023 Encounter Details Date Type Department Care Team (Late st Contact Info) Description 02/01/2023 Telephone [facility] - Centralized Scheduling [address] [place] [address] Kee Rodriguez MD [address] [address] Reschedule Appointment Social History Tobacco Use Types Packs/Day Years Used Date Smoking Tobacco: Former Cigarettes Smokeless Tobacco: Never Alcohol Use Standard Drinks/Week Comments No 0 (1 standard drink = 0.6 oz pur e alcohol) Sex and Gender Information Value Date Recorded Sex Assigned at Not on file Gender Identity Not on file Sexual Orientation Not on file documented as of this encounter Miscellaneous Notes * Telephone Encounter - Aleshia Phillips - 02/01/2023 4:47 PM CST I spoke to Julien's to reschedule his 02/16/[address] Rodriguez. She is unsure if wants to see Julien in February or in 2 years from 09/22/22 appointment. Please contact Julien to assist with scheduling. E SUPERVISOR documented in this encounter Plan of Treatment Not on file documented as of this encounter Visit Diagnoses Not on filedocumented in this encounter Care Teams Rubber Cutter Relationship Specialty Start Date End Date Halina Solorzano MD [address] [place] [address] PCP - General 02/17/22 01/05/24 [place] [address] [place] [address] PCP - General Internal Medicine 01/06/24 Madi Wills, WOJCIECH [address] [place] [address] Neuro Ophthalmology 07/27/17 documented as of this encounter
== END ==
LOC: ANHLAB 16:37
PROVIDERS: Visit Provider Physician Assistant Surgical
DX: L72.3 Sebaceous cyst (principal)
CPT/HCPCS: 88305